=== PATIENT | female | born 1945 | race Caucasian/White ===

== ENCOUNTER → 2020-09-17 11:27 | Outpatient (BNVA) | payer MEDICARE, SELFPAY | PROVIDERS: PCP Nurse Practitioner Family; Visit Provider Nurse Practitioner | DX: Z13.89 Encounter for screening for other disorder (principal) | CPT/HCPCS: Q3014 ==

== ENCOUNTER 2020-09-19 19:45 | Emergency (ER) | payer MEDICARE, SELFPAY ==
[2020-09-19 19:55] VITALS: BP 128/66; PULSE 84; RESP 16; TEMP 36.9; O2SAT 98; BMI 19.5
--- NOTE | 2020-09-19 19:56 | ED.NAVMDI ---
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 Mode of arrival: EMS Limitations: no limitations History of Present Illness HPI Narrative: hx of gastritis feels like her gastritis MD elicited complaint: nausea, vomiting and abdominal pain Pertinent past history: other (gastritis) Onset (ago): hour(s) (2) Description of vomiting: watery Associated nausea: Yes Associated abdominal pain: Yes Location of pain: epigastric Radiation: does not radiate Pain consistency: constant Severity: moderate Quality: cramping and constant Exacerbating factors: none Relieving factors: none Context: other (gastritis) Associated symptoms: nausea/vomiting Related Data Previous Rx's Medication Instructions Recorded omeprazole 40 mg capsule,delayed 40 mg PO DAILY 30 Days #30 cap 09/17/20 release ondansetron 4 mg PO Q8H PRN #20 tab 09/19/20 Allergies Allergy/AdvReac Type Severity Reaction Status Date / Time No Known Allergies Allergy Verified 09/17/20 11:27 Review of Systems Review of Systems: Constitutional : No Weight loss, No Fever, No Chills ENT/Mouth : No sore throat, No Rhinorrhea Eyes: No Swelling, No Redness Cardiovascular : No Chest Pain, No SOB, NoEdema Respiratory : No Cough, No Sputum, No Wheezing Gastrointestinal : Positive Nausea, Positive Vomiting, no Diarrhea, positive abdominal Pain, No Hematochezia, No Melena Genitourinary : No Dysuria, No Urinary Frequency, No Hematuria, No Urgency Musculoskeletal : No joint pain, No Myalgias, No Joint Swelling Skin : No Skin Lesions, No rash Neuro : No Weakness, No Numbness, No Dizziness, No Headache Psych : No Anxiety/Panic, No Depression Heme/Lymph: No Bruising, No Lymphadenopathy Endocrine : No Polyuria, No Polydipsia All other systems reviewed and are negative. Gastrointestinal: Gastrointestinal: Reports nausea PMFSH Past Medical History Attestation statement: The following information was validated with the patient. Medical History (Updated 09/19/20 @ 23:04 by Luzma Parnell DO) Arthritis Diabetes Gastritis Osteopenia Sciatica Surgical History (Updated 09/19/20 @ 20:16 by Luzma Parnell DO) H/O: hysterectomy History of esophagogastroduodenoscopy (EGD) Hx of colonoscopy Family History Family History (Updated 08/05/20 @ 15:41 by ZEV Khoury) Father No problems noted. Mother Diabetes Daughter Ovarian cancer Social History Social History Household Members: Spouse Alcohol intake: current Alcohol intake frequency: does not drink Smoking Status: Never smoker Advance Directives: No Advance Directives Information Provided: No Physical Exam Vital Signs: Vital Signs: Last Vital Signs Temp 98.9 F 09/19/20 21:55 Pulse 69 09/19/20 21:55 Resp 16 09/19/20 21:55 BP 105/55 L 09/19/20 21:55 Pulse Ox 100 09/19/20 21:55 Body Mass Index 19.5 Appearance: Alert. Oriented X3. No acute distress. Eyes: Pupils equal, round and reactive to light. ENT: Pharynx normal. Neck: Normal inspection. Neck supple. CVS: Normal heart rate and rhythm. Pulses normal. Respiratory: No respiratory distress. Breath sounds normal. Abdomen: Soft and mild epigastric tenderness no rebound or guarding. Skin: Skin warm and dry. Normal skin color. Normal skin turgor. Extremities: No lower extremity edema. No calf ttp Neuro: Oriented X 3. No motor deficit. No sensory deficit. Course Course Course Narrative: CT scan for elevated lipase - hx of same in past but higher today pateint states she feels much better , no inflammation around pancreas able to tolerate PO stable for DC MDM - Nausea/Vomiting/Diarrhea MDM Narrative Medical decision making narrative: 75 yo female with hx of gastritis here with epigastric pain and n/v states this feels like her gastritis will obtain basic labs, EKG, treat with zofran/pepcid/morphine dispo per results and findings. Lab Data Result diagrams: 09/19/20 20:33 09/19/20 20:33 Labs: Lab Results 09/19/20 09/19/20 09/19/20 Range/Units 20:33 20:33 20:33 WBC 10.1 (4.8-10.8) X10*3/uL RBC 4.31 (4.20-5.50) X10*6/uL Hgb 13.1 (12.0-16.0) g/dl Hct 40.3 (37-47) % MCV 93.5 (80-98) fL MCH 30.4 (27.0-33.0) pg MCHC 32.5 (31.0-35.0) g/dl RDW 12.4 (11.0-16.0) % Plt Count 183 (160-400) X10*3/uL MPV 10.6 (9.4-12.3) fL Immature Gran % (Auto) 0.3 (0.0-0.4) % Neut % (Auto) 88.0 H (45-73) % Lymph % (Auto) 6.1 L (20-40) % [place] % (Auto) 4.5 (2-11) % Eos % (Auto) 0.9 (0-4) % Baso % (Auto) 0.2 (0-2) % Lymph # (Auto) 0.6 L (1.2-4.9) X10*3/uL [place] # (Auto) 0.5 (0.1-1.2) X10*3/uL Eos # (Auto) 0.1 (0.0-0.4) X10*3/uL Baso # (Auto) 0.0 (0.0-0.2) X10*3/uL Abs Immat Gran (auto) 0.03 (0.00-0.03) X10*3/uL Absolute Neuts (auto) 8.9 H (2.0-8.3) X10*3/uL Absolute Nucleated RBC 0.000 (0.0-0.012) X10*3/uL Nucleated RBC % (auto) 0.0 (0.0-0.2) /100WBC Hold Blue Top SEE NOTE Sodium 141 (135-145) mmol/L Potassium 4.6 (3.3-5.1) mmol/l Chloride 102 (96-108) mmol/L Carbon Dioxide 31 H (22-29) mmol/L Anion Gap 13 (12-20) BUN 23 H (9-16) mg/dL Creatinine 0.83 (0.5-1.4) mg/dL Estim Creat Clear Calc 41.2 Estimated GFR > 60 Random Glucose 112 (60-115) mg/dL Calcium 9.0 (8.4-10.2) mg/dL Magnesium 2.1 (1.6-2.6) mg/dL Total Bilirubin 0.2 (0.0-1.0) mg/dL Direct Bilirubin < 0.2 (0.0-0.5) mg/dL AST 25 (5-31) U/L ALT 20 (0-31) U/L Alkaline Phosphatase 63 (39-117) U/L Troponin I High Sens (<3.5-17.0) ng/L Total Protein 7.2 (6.5-8.0) g/dL Albumin 4.4 (3.5-5.0) g/dL Lipase 159 H (8-78) U/L 09/19/20 Range/Units 20:33 WBC (4.8-10.8) X10*3/uL RBC (4.20-5.50) X10*6/uL Hgb (12.0-16.0) g/dl Hct (37-47) % MCV (80-98) fL MCH (27.0-33.0) pg MCHC (31.0-35.0) g/dl RDW (11.0-16.0) % Plt Count (160-400) X10*3/uL MPV (9.4-12.3) fL Immature Gran % (Auto) (0.0-0.4) % Neut % (Auto) (45-73) % Lymph % (Auto) (20-40) % [place] % (Auto) (2-11) % Eos % (Auto) (0-4) % Baso % (Auto) (0-2) % Lymph # (Auto) (1.2-4.9) X10*3/uL [place] # (Auto) (0.1-1.2) X10*3/uL Eos # (Auto) (0.0-0.4) X10*3/uL Baso # (Auto) (0.0-0.2) X10*3/uL Abs Immat Gran (auto) (0.00-0.03) X10*3/uL Absolute Neuts (auto) (2.0-8.3) X10*3/uL Absolute Nucleated RBC (0.0-0.012) X10*3/uL Nucleated RBC % (auto) (0.0-0.2) /100WBC Hold Blue Top Sodium (135-145) mmol/L Potassium (3.3-5.1) mmol/l Chloride (96-108) mmol/L Carbon Dioxide (22-29) mmol/L Anion Gap (12-20) BUN (9-16) mg/dL Creatinine (0.5-1.4) mg/dL Estim Creat Clear Calc Estimated GFR Random Glucose (60-115) mg/dL Calcium (8.4-10.2) mg/dL Magnesium (1.6-2.6) mg/dL Total Bilirubin (0.0-1.0) mg/dL Direct Bilirubin (0.0-0.5) mg/dL AST (5-31) U/L ALT (0-31) U/L Alkaline Phosphatase (39-117) U/L Troponin I High Sens < 3.5 (<3.5-17.0) ng/L Total Protein (6.5-8.0) g/dL Albumin (3.5-5.0) g/dL Lipase (8-78) U/L ECG Data Attestation: I personally reviewed and interpreted this ECG as follows: ECG interpretation date: 09/19/20 ECG interpretation time: 20:29 Interpretation: Rate: 80 Rhythm: NSR [place]: left Normal P waves. Normal TEO. Normal QRS complex. poor R wave progression ST T wave : no BERNICE, inverted I and aVL qTC: normal prior studies: new t wave inversions in I and aVL The study has been interpreted contemporaneously by me. . Discharge Plan Discharge Clinical Impression: Gastritis, Vomiting Patient Disposition: Home, Self-Care Instructions: Gastritis (ED), Acute Nausea and Vomiting (ED) Additional Instructions: return to ED for any worsening symptoms or concerns Prescriptions: New ondansetron 4 mg tablet,disintegrating 4 mg PO Q8H PRN (Reason: nausea and vomiting) Qty: 20 RF: 0 No Action omeprazole 40 mg capsule,delayed release(DR/EC) 40 mg PO DAILY 30 Days Qty: 30 RF: 3 Referrals: Physician,Unknown [Primary Care Provider] - 3 days (PCP if not better) Print Language: Setswana
[2020-09-19 20:00] VITALS: BP 119/60; PULSE 83; RESP 16; TEMP 36.9; O2SAT 99
--- NOTE | 2020-09-19 20:00 | PC.NURSE ---
PT TO ROOM #14 WITH C/O ABD PAIN AND NAUSEA X 1 DAY. PT CHG INTO GOWN AND MD AT BEDSIDE. PT ARRIVES ALERT, RESPIRATIONS EASY, N/L. SKIN W/D. IV PLACED TO RAC, LABS DRAWN TO LAB. PT MEDICATED PER EMAR FOR PAIN AND NAUSEA. WILL CONTINUE TO MONTIOR PT.
--- NOTE | 2020-09-19 20:06 | ECG_ITS ---
Test Reason : VOMITING Blood Pressure : / mmHG Vent. Rate : 080 BPM Atrial Rate : 080 BPM P-R Int : 168 ms QRS Dur : 078 ms QT Int : 362 ms P-R-T Axes : 000 -28 134 degrees QTc Int : 417 ms Normal sinus rhythm Minimal criteria for Voltage criteria for left ventricular hypertrophy Abnormal ECG When compared with ECG of 13-APR-2020 21:04, No significant changes seen Referred By: Luzma Parnell Electronically Signed By:IOANA PICHARDO
[2020-09-19] MEDS: Morphine Sulfate 4 MG/ML CARTRIDGE 2 MG IVPUSH (20:37)
[2020-09-19] MEDS: ondansetron HCL 4 MG/2 ML VIAL IVPUSH (20:38)
[2020-09-19] MEDS: 0.9 % Sodium Chloride 500 ML IV (20:38)
[2020-09-19] MEDS: Famotidine/PF 20 MG/2 ML VIAL IVPUSH (20:38)
[2020-09-19 20:41] LABS: Basophils Percent Auto 0.2 % (0-2); Eosinophils Absolute Auto 0.1 X10*3/uL (0.0-0.4); Eosinophils Percent Auto 0.9 % (0-4); Hematocrit 40.3 % (37-47); Hemoglobin 13.1 g/dl (12.0-16.0); Imm Gran Abs Auto 0.03 X10*3/uL (0.00-0.03); Imm Gran Pct Auto 0.3 % (0.0-0.4); Lymphocytes Absolute Auto 0.6 X10*3/uL (1.2-4.9); Lymphocytes Percent Auto 6.1 % (20-40); Mean Corpuscular HGB Conc 32.5 g/dl (31.0-35.0); Mean Corpuscular Hemoglobin 30.4 pg (27.0-33.0); Mean Corpuscular Volume 93.5 fL (80-98); Mean Platelet Volume 10.6 fL (9.4-12.3); Monocytes Absolute Auto 0.5 X10*3/uL (0.1-1.2); Monocytes Percent Auto 4.5 % (2-11); Neutrophils Absolute Auto 8.9 X10*3/uL (2.0-8.3); Platelet Count 183 X10*3/uL (160-400); Red Blood Count 4.31 X10*6/uL (4.20-5.50); Red Cell Distribution Width 12.4 % (11.0-16.0); SCAN SMEAR FLAG 1; White Blood Count 10.1 X10*3/uL (4.8-10.8)
[2020-09-19 20:43] LABS: MANUAL DIFF FLAG NO
[2020-09-19 21:16] LABS: Alanine Aminotransferase 20 U/L (0-31); Albumin Level 4.4 g/dL (3.5-5.0); Alkaline Phosphatase 63 U/L (39-117); Anion Gap 13 (12-20); Aspartate Amino Transferase 25 U/L (5-31); Bilirubin Direct < 0.2 mg/dL (0.0-0.5); Bilirubin Total 0.2 mg/dL (0.0-1.0); Blood Urea Nitrogen 23 mg/dL (9-16); Carbon Dioxide 31 mmol/L (22-29); Chloride 102 mmol/L (96-108); Creatinine Clr Calc Pharmacy 41.2; Estimated Glomerular Filt Rate > 60; Glucose Random 112 mg/dL (60-115); Magnesium 2.1 mg/dL (1.6-2.6); Potassium 4.6 mmol/l (3.3-5.1); Sodium 141 mmol/L (135-145); Total Protein 7.2 g/dL (6.5-8.0)
[2020-09-19 21:18] LABS: Troponin-I High Sensitivity < 3.5 ng/L (<3.5-17.0)
[2020-09-19 21:28] LABS: Lipase 159 U/L (8-78)
--- NOTE | 2020-09-19 21:31 | CT_ITS ---
EXAMINATION: CT ABDOMEN AND PELVIS WITH CONTRAST CLINICAL INFORMATION: Epigastric pain. Elevated lipase. COMPARISON: Most recent CT abdomen/pelvis dated 05/22/2020. TECHNIQUE: Multidetector volumetric images were obtained from the superior aspect of the liver through the pubic symphysis following administration 85 mL of Omnipaque 350 intravenous contrast. Sagittal and coronal reformatted images were obtained on the technologist's workstation. Oral contrast: No. This CT examination was performed using dose optimization techniques as appropriate, variously including the following: *Automated exposure control *Adjustment of mA and/or kV according to patient size (this includes techniques or standardized protocols for targeted exams where dose is matched to indication/reason for exam; i.e. extremities or head) *Use of iterative reconstruction technique DLP: 283 mGy-cm. FINDINGS: LUNG BASES: The visualized lung bases are unremarkable. LIVER, GALLBLADDER, AND BILIARY TREE: The liver is normal in size, shape, and attenuation. No focal hepatic lesion or biliary ductal dilatation is present. The gallbladder is unremarkable with no evidence of radiopaque gallstones, gallbladder wall thickening, or obvious pericholecystic inflammatory changes. PANCREAS: Unremarkable. SPLEEN: Unremarkable. ADRENAL GLANDS: Unremarkable. KIDNEYS AND URETERS: The kidneys are normal in size, shape, and attenuation. No hydronephrosis, hydroureter, or calculi seen. No perinephric stranding. BLADDER: Unremarkable. GASTROINTESTINAL TRACT: Small, sliding hiatal hernia. Mild stool throughout the colon, which could represent a degree of constipation. No bowel wall thickening or associated inflammatory change. No small or large bowel obstruction. Unremarkable appendix. PERITONEAL CAVITY: No intra-abdominal free air or free fluid. No intra-abdominal mass or organized fluid collection/abscess. ABDOMINAL WALL: No significant hernia is appreciated. LYMPH NODES: Normal. VASCULAR: No abdominal aortic dilatation or dissection. Atherosclerotic calcifications. Unremarkable IVC. PELVIC VISCERA: Uterus is atrophic or surgically absent. Phleboliths within the pelvis. OSSEOUS STRUCTURES: No new lytic or blastic osseous lesion. CT/CT abdomen pelvis w con IMPRESSION: 1. Small, sliding hiatal hernia. Mild stool throughout the colon, which could indicate a degree of constipation. No small or large bowel obstruction. No bowel wall thickening or associated inflammatory change. Unremarkable appendix. 2. No hydronephrosis or nephrolithiasis. 3. No intra-abdominal mass, lymphadenopathy, or ascites.
[2020-09-19 21:55] VITALS: BP 105/55; PULSE 69; RESP 16; TEMP 37.2; O2SAT 100
[2020-09-19] MEDS: iohexoL 350 MG/ML 100 ML INFUS..BTL IV (22:27)
== END 2020-09-19 23:24 | disposition home or self-care (01) ==
PROVIDERS: Emergency Provider Emergency Medicine
DX: K29.70 Gastritis, unspecified, without bleeding (principal); R11.10 Vomiting, unspecified; E11.9 Type 2 diabetes mellitus without complications
CPT/HCPCS: 36415; 74177; 80048; 80076; 83690; 83735; 84484; 85025; 93005; 96361; 96374; 96375; 99283; 99284; J2270; J2405; Q9967

== ENCOUNTER → 2020-10-15 10:17 | Outpatient (BNVA) | payer MEDICARE, SELFPAY | PROVIDERS: Visit Provider Nurse Practitioner | DX: Z76.89 Persons encountering health services in other specified circumstances (principal) | CPT/HCPCS: Q3014 ==

== ENCOUNTER → 2020-11-06 13:31 | Outpatient (BNVA) | payer MEDICARE, SELFPAY | PROVIDERS: PCP Nurse Practitioner Family; Visit Provider Nurse Practitioner | DX: Z76.89 Persons encountering health services in other specified circumstances (principal) | CPT/HCPCS: Q3014 ==

== ENCOUNTER 2021-01-09 17:25 | Emergency (ER) | payer MEDICARE, SELFPAY ==
[2021-01-09 18:47] VITALS: BP 136/63; PULSE 66; RESP 18; TEMP 36.8; O2SAT 99; BMI 18.7
[2021-01-09 19:18] VITALS: BP 130/57; PULSE 62; RESP 16; TEMP 36.4; O2SAT 100
[2021-01-09 20:31] VITALS: BP 130/48; PULSE 60; RESP 15; TEMP 36.3; O2SAT 100
--- NOTE | 2021-01-09 21:34 | ED.BACK ---
HPI - Back Pain/Injury General Chief Complaint: Back Pain/Injury Stated Complaint: back pain Time Seen by Provider: 01/09/21 20:55 Source: patient, RN notes reviewed and old records reviewed Mode of arrival: ambulatory Limitations: no limitations History of Present Illness HPI Narrative: 75 years old female here today for complaining of lower back pain. Patient reports that she has a history of sciatica. Usually takes tramadol for it. Few days ago she was cleaning her house and her pain started after that. Denies any other injury. Denies any fever or chills. Denies any tingling, denies bladder or bowel incontinence. Pain radiates down to her leg. Denies any other symptoms. Related Data Home Medications Medication Instructions Recorded Confirmed calcium carbonate 200 mg calcium 200 mg PO BID PRN 11/06/20 (500 mg) chewable tablet cholecalciferol (vitamin D3) 50 50 mcg PO DAILY 11/06/20 mcg (2,000 unit) capsule levothyroxine 50 mcg tablet 50 mcg PO DAILY 11/06/20 lisinopril 5 mg tablet 5 mg PO DAILY 11/06/20 metformin 850 mg tablet 850 mg PO BEDTIME 11/06/20 omeprazole 40 mg capsule,delayed 40 mg PO DAILY 11/06/20 release rosuvastatin 20 mg tablet 20 mg PO BEDTIME 11/06/20 tramadol 50 mg tablet 50 mg PO Q6H PRN 11/06/20 zolpidem 5 mg tablet 5 mg PO BEDTIME PRN 11/06/20 Previous Rx's Medication Instructions Recorded ondansetron 4 mg PO Q8H PRN #20 tab 09/19/20 simethicone 180 mg capsule 180 mg PO QID 30 Days #120 cap 10/15/20 pantoprazole 40 mg tablet,delayed 40 mg PO BID #180 tab 01/07/21 release cyclobenzaprine 5 mg PO BEDTIME PRN #7 tab 01/09/21 Allergies Allergy/AdvReac Type Severity Reaction Status Date / Time No Known Allergies Allergy Verified 01/09/21 19:34 Review of Systems Constitutional: Constitutional: Denies weight gain and Denies weight loss Cardiovascular: Cardiovascular: Reports no additional cardiovascular complaints Respiratory: Respiratory: Reports no additional respiratory complaints Musculoskeletal: Musculoskeletal: Reports back pain (Right lower back) Neurologic: Reports system reviewed and no additional complaints, except as documented Psychiatric: Psychiatric: Reports no additional psychiatric complaints PMFSH Past Medical History Medical History (Updated 01/10/21 @ 00:01 by Priya Maher) Arthritis Diabetes Gastritis Osteopenia Sciatica Surgical History H/O: hysterectomy History of esophagogastroduodenoscopy (EGD) Hx of colonoscopy Family History Family History Father No problems noted. Mother Diabetes Daughter Ovarian cancer Social History Social History (Updated 11/06/20 @ 13:36 by ZEV Khoury) Household Members: Spouse Alcohol intake: current Alcohol intake frequency: does not drink Smoking Status: Never smoker Advance Directives: No Advance Directives Information Provided: Yes Current occupational status: retired Physical Exam Vital Signs: Vital Signs: Last Vital Signs Temp 97.6 F 01/09/21 22:34 Pulse 60 01/09/21 22:34 Resp 16 01/09/21 22:34 BP 146/62 H 01/09/21 22:34 Pulse Ox 99 01/09/21 22:34 Body Mass Index 18.7 Const: General: healthy appearing, no acute distress and well developed Nutritional Appearance: well nourished Orientation/consciousness: patient oriented x3 Neck: Neck: Yes normal visual inspection, Yes full ROM and Yes trachea midline Resp: Auscultation: clear to auscultation bilaterally Cardio: Rate: regular rate Rhythm: regular rhythm GI: Inspection: Yes normal to inspection and No distended Palpation (GI): No hepatosplenomegaly present Auscultation: normal bowel sounds Skin: General skin exam: elasticity normal, turgor normal and dry skin Neuro: General: patient oriented x3 Course Course Course Narrative: Right lower back pain. Patient reports to have history of sciatica. Cleaned her house few days ago and pain started then. No tingling, radiation down to her right lower leg. Will medicate her with cyclobenzaprine. Patient usually takes tramadol for pain. Will order urine to make sure she does not have a UTI. Reevaluation(s) Reevaluation #1: Urine negative for leukocytosis, blood, ketones. Patient reports to be feeling better after cyclobenzaprine. Will send her home on a script. Patient is agreeable to go home and follow up with her PCP. MDM - Back Pain/Injury Lab Data Labs: Lab Results 01/09/21 Range/Units 21:51 Urine Color YELLOW Urine Appearance CLEAR Urine pH 6.0 (5.0-8.0) Ur Specific [place] >= 1.030 H (1.005-1.025) Urine Protein NEG (NEG-TRACE) MG/DL Urine Glucose (UA) NEG (NEG) MG/DL Urine Ketones NEG (NEG) MG/DL Urine Blood NEG (NEG) Urine Nitrite NEG (NEG) Ur Leukocyte Esterase NEG (NEG) Discharge Plan Discharge Clinical Impression: Strain of lumbar region, Sciatica Patient Disposition: Home, Self-Care Instructions: Sciatica (ED) Additional Instructions: You were seen here today for low back pain. Your urine test was negative for infection, blood or ketones. Please take cyclobenzaprine at night as needed for muscle spasms. Please follow-up with you primary care doctor in 2-3 days. Avoid twisting and bending. You can put warm compresses/heat to the affected area. You may return to emergency department if you experience any concerning symptoms Prescriptions: New cyclobenzaprine 5 mg tablet 5 mg PO BEDTIME PRN (Reason: muscle spasm) Qty: 7 RF: 0 No Action pantoprazole 40 mg tablet,delayed release (DR/EC) 40 mg PO BID Qty: 180 RF: 2 ondansetron 4 mg tablet,disintegrating 4 mg PO Q8H PRN (Reason: nausea and vomiting) Qty: 20 RF: 0 simethicone 180 mg capsule 180 mg PO QID 30 Days Qty: 120 RF: 3 Interventions: ED Discharge Assessment Last Done: 01/09/21 23:03 Discharge Date/Time: 01/09/21 23:05
[2021-01-09 22:01] LABS: Glucose Urine UA NEG (NEG); Leukocyte Esterase Urine NEG (NEG); Nitrite Urine NEG (NEG); Specific Gravity - Urine >= 1.030 (1.005-1.025); Urine Blood NEG (NEG); Urine Ketones NEG (NEG); Urine Protein NEG (NEG-TRACE)
[2021-01-09 22:04] LABS: Appearance Urine CLEAR; Color Urine YELLOW
[2021-01-09] MEDS: Cyclobenzaprine HCl 5 MG TABLET PO (22:05)
[2021-01-09 22:34] VITALS: BP 146/62; PULSE 60; RESP 16; TEMP 36.4; O2SAT 99
== END 2021-01-09 23:05 | disposition home or self-care (01) ==
PROVIDERS: Nurse Practitioner Family; Emergency Provider Internal Medicine; PCP Nurse Practitioner Family
DX: S39.012A Strain of muscle, fascia and tendon of lower back, initial encounter (principal); X50.9XXA Other and unspecified overexertion or strenuous movements or postures, initial encounter; M54.41 Lumbago with sciatica, right side; Y93.E9 Activity, other interior property and clothing maintenance; Y92.039 Unspecified place in apartment as the place of occurrence of the external cause; Y99.9 Unspecified external cause status
CPT/HCPCS: 81003; 99283; 99284

== ENCOUNTER 2021-04-17 13:51 | Outpatient (REF) | payer MEDICARE, SELFPAY ==
--- NOTE | ~2021-04-17 | MM_ITS ---
EXAMINATION: MM SCREENING DIGITAL BREAST TOMOSYNTHESIS, BILATERAL CLINICAL INFORMATION: Screening. Asymptomatic. The lifetime risk of breast cancer based on the Tyrer-Cuzick Model is 2%. COMPARISON: Mammography: 06/13/2019, 06/01/2018, 04/25/2017 TECHNIQUE: Digital breast tomosynthesis is performed in both the craniocaudal and mediolateral oblique views along with computer-aided detection (CAD). Synthesized 2D images are generated from the tomosynthesis. Additional exaggerated left CC view is provided. FINDINGS: The breasts are heterogeneously dense, which may obscure small masses (ACR BI-RADS breast composition Category c). Parenchymal pattern is similar to prior studies. There is no developing density or interval mass or architectural abnormality. Scattered minor asymmetries and shifting fibroglandular tissue is without significant change. There are scattered bilateral vascular and benign round calcifications. The axilla and skin contours are unremarkable. No significant changes. MM/MM tomosynthesis screening BI IMPRESSION: No mammographic evidence of malignancy. ASSESSMENT: BI-RADS 2: Benign RECOMMENDATION: Routine annual mammography screening. This patient's information was entered into a reminder system with a target due date for their next mammogram.
== END 2021-04-17 13:52 | disposition home or self-care (01) ==
LOC: HO.MAMMO 13:51
PROVIDERS: Visit Provider Family Medicine
DX: Z12.31 Encounter for screening mammogram for malignant neoplasm of breast (principal)
CPT/HCPCS: 77063; 77067

== ENCOUNTER → 2021-04-20 09:36 | Outpatient (BNVA) | payer MEDICARE, SELFPAY | PROVIDERS: PCP Nurse Practitioner Family; Visit Provider Nurse Practitioner | CPT/HCPCS: Q3014 ==

== ENCOUNTER → 2021-11-24 14:15 | Outpatient (BNVA) | payer MEDICARE, SELFPAY | PROVIDERS: PCP Internal Medicine; Referring Provider Internal Medicine; Visit Provider Nurse Practitioner | DX: K22.10 Ulcer of esophagus without bleeding (principal); R14.0 Abdominal distension (gaseous); R11.0 Nausea; K21.9 Gastro-esophageal reflux disease without esophagitis; Z79.899 Other long term (current) drug therapy | CPT/HCPCS: 99212 ==

== ENCOUNTER 2022-04-20 11:51 | Outpatient (REF) | payer OTHER, SELFPAY ==
--- NOTE | ~2022-04-20 | MM_ITS ---
EXAMINATION: MM SCREENING DIGITAL BREAST TOMOSYNTHESIS, BILATERAL CLINICAL INFORMATION: Screening. Asymptomatic. The lifetime risk of breast cancer based on the Tyrer-Cuzick Model is 2%. COMPARISON: Mammography: 04/17/2021, 06/13/2019, 06/01/2018 TECHNIQUE: Digital breast tomosynthesis is performed in both the craniocaudal and mediolateral oblique views along with computer-aided detection (CAD). Synthesized 2D images are generated from the tomosynthesis. Additional right MLO view is provided. FINDINGS: The breasts are heterogeneously dense, which may obscure small masses (ACR BI-RADS breast composition Category c). There are no significant masses, abnormal calcifications, or other abnormalities. No developing density or architectural abnormality. The axilla and skin contours are unremarkable MM/MM tomosynthesis screening BI IMPRESSION: No mammographic evidence of malignancy. ASSESSMENT: BI-RADS 1: Negative RECOMMENDATION: Routine annual mammography screening. This patient's information was entered into a reminder system with a target due date for their next mammogram.
== END 2022-04-20 11:52 | disposition home or self-care (01) ==
LOC: HO.MAMMO 11:51
PROVIDERS: PCP Internal Medicine; Visit Provider Internal Medicine
DX: Z12.31 Encounter for screening mammogram for malignant neoplasm of breast (principal)
CPT/HCPCS: 77063; 77067

== ENCOUNTER 2022-04-30 18:06 | Emergency (ER) | payer OTHER, SELFPAY ==
[2022-04-30 19:58] VITALS: BP 138/81; PULSE 70; RESP 16; TEMP 36.1; O2SAT 96; BMI 20.2
[2022-04-30 20:10] LABS: MANUAL DIFF FLAG NO
[2022-04-30 20:11] LABS: Basophils Percent Auto 0.3 % (0-2); Eosinophils Absolute Auto 0.2 X10*3/uL (0.0-0.4); Eosinophils Percent Auto 2.5 % (0-4); Hemoglobin 12.2 g/dl (12.0-16.0); Imm Gran Abs Auto 0.01 X10*3/uL (0.00-0.03); Imm Gran Pct Auto 0.2 % (0.0-0.4); Lymphocytes Absolute Auto 1.8 X10*3/uL (1.2-4.9); Lymphocytes Percent Auto 30.3 % (20-40); Mean Corpuscular HGB Conc 33.9 g/dl (31.0-35.0); Mean Corpuscular Hemoglobin 30.5 pg (27.0-33.0); Mean Platelet Volume 10.3 fL (9.4-12.3); Monocytes Absolute Auto 0.5 X10*3/uL (0.1-1.2); Monocytes Percent Auto 7.4 % (2-11); Neutrophils Absolute Auto 3.6 x10*3/uL (2.0-8.3); Neutrophils Percent Auto 59.3 % (45-73); Platelet Count 169 X10*3/uL (160-400); Red Cell Distribution Width 12.8 % (11.0-16.0); White Blood Count 6.1 X10*3/uL (4.8-10.8)
[2022-04-30 20:36] LABS: Alanine Aminotransferase 14 U/L (0-31); Albumin Level 4.5 g/dL (3.5-5.0); Alkaline Phosphatase 53 U/L (39-117); Anion Gap 12 (12-20); Aspartate Amino Transferase 24 U/L (5-31); Bilirubin Total 0.4 mg/dL (0.0-1.0); Blood Urea Nitrogen 25 mg/dL (9-16); Calcium 9.3 mg/dL (8.4-10.2); Carbon Dioxide 30 mmol/L (22-29); Chloride 102 mmol/L (96-108); Creatinine Clr Calc Pharmacy 38.8; Estimated Glomerular Filt Rate > 60; Glucose Random 111 mg/dL (60-115); Lipase 31 U/L (8-78); Potassium 4.2 mmol/L (3.3-5.1); Sodium 140 mmol/L (135-145); Total Protein 7.2 g/dL (6.5-8.0)
[2022-04-30 20:41] LABS: Troponin-I High Sensitivity < 3.5 ng/L (<3.5-17.0)
== END 2022-04-30 23:45 | disposition left against medical advice (07) ==
PROVIDERS: Emergency Provider Emergency Medicine; PCP Internal Medicine
DX: R10.10 Upper abdominal pain, unspecified (principal); R11.0 Nausea; R19.7 Diarrhea, unspecified
CPT/HCPCS: 36415; 80053; 83690; 84484; 85025; 99281; 99283

== ENCOUNTER → 2022-10-27 08:43 | Outpatient (BNVA) | payer OTHER, SELFPAY | PROVIDERS: PCP Internal Medicine; Referring Provider Internal Medicine; Visit Provider Nurse Practitioner | DX: K22.10 Ulcer of esophagus without bleeding (principal); D12.6 Benign neoplasm of colon, unspecified; R14.0 Abdominal distension (gaseous); Z53.20 Procedure and treatment not carried out because of patient's decision for unspecified reasons | CPT/HCPCS: 99212 ==

== ENCOUNTER 2023-03-26 11:11 | Emergency (ER) | payer OTHER, SELFPAY ==
[2023-03-26 11:34] VITALS: BP 106/56; PULSE 62; RESP 17; TEMP 35.7; O2SAT 99; BMI 19.7
--- NOTE | 2023-03-26 11:35 | ED.LOWEXIN ---
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 Now pain with WB. NO numbness, tingling or weakness. MD complaint: foot injury Related Data Home Medications Medication Instructions Recorded Confirmed cholecalciferol (vitamin D3) 50 50 mcg PO DAILY 11/06/20 mcg (2,000 unit) capsule levothyroxine 50 mcg tablet 50 mcg PO DAILY 11/06/20 lisinopril 5 mg tablet 5 mg PO DAILY 11/06/20 metformin 850 mg tablet 850 mg PO BEDTIME 11/06/20 rosuvastatin 20 mg tablet 20 mg PO BEDTIME 11/06/20 tramadol 50 mg tablet 50 mg PO Q6H PRN 11/06/20 zolpidem 5 mg tablet 5 mg PO BEDTIME PRN 11/06/20 aspirin 81 mg tablet,delayed 81 mg PO DAILY 10/27/22 release blood sugar diagnostic (FreeStyle #10 ea 10/27/22 Lite Strips) lancets 28 gauge (FreeStyle #100 ea 10/27/22 Lancets) Previous Rx's Medication Instructions Recorded ondansetron 4 mg disintegrating 4 mg PO Q8H PRN nausea and 09/19/20 tablet vomiting #20 tabs cyclobenzaprine 5 mg tablet 5 mg PO BEDTIME PRN muscle spasm 01/09/21 #7 tabs pantoprazole 40 mg tablet,delayed 40 mg PO BID #180 tabs 10/27/22 release simethicone 180 mg capsule 180 mg PO QID 30 days #120 caps 10/27/22 Allergies Allergy/AdvReac Type Severity Reaction Status Date / Time No Known Allergies Allergy Verified 10/27/22 09:00 Review of Systems Review of Systems: Yes all other systems are reviewed and are negative Constitutional: Constitutional: Reports no additional constitutional complaints, Denies body ache(s), Denies chills, Denies fever(s), Denies headache(s) and Denies weakness Eyes: Eyes: Reports no additional eye complaints and Denies change in vision ENT: Reports system reviewed and no additional complaints, except as documented, Denies dizziness, Denies headache(s), Denies nasal congestion, Denies nasal discharge and Denies neck pain Cardiovascular: Cardiovascular: Reports no additional cardiovascular complaints, Denies chest pain, Denies leg edema and Denies dyspnea Respiratory: Respiratory: Reports no additional respiratory complaints, Denies cough and Denies dyspnea Gastrointestinal: Gastrointestinal: Reports no additional gastrointestinal complaints, Denies abdominal pain, Denies diarrhea, Denies nausea and Denies vomiting Genitourinary: Genitourinary: Reports no additional female genitourinary complaints and Denies urinary incontinence Musculoskeletal: Musculoskeletal: Reports no additional musculoskeletal complaints, Denies back pain, Reports arthralgias, Denies joint swelling, Denies limited range of motion, Denies neck pain, Denies numbness and Denies tingling Integumentary/Breasts: Skin/Breast: Reports system reviewed and no additional complaints, except as docu and Denies rash Neurologic: Reports system reviewed and no additional complaints, except as documented, Denies Abnormal speech present, Denies dizziness, Denies headache(s), Denies numbness, Denies tingling and Denies weakness PMFSH Past Medical History Attestation statement: The following information was validated with the patient. Source: old records reviewed and nursing notes reviewed Medical History Arthritis Diabetes Gastritis Osteopenia Sciatica Surgical History H/O: hysterectomy History of esophagogastroduodenoscopy (EGD) Hx of colonoscopy Family History Family History Father No problems noted. Mother Diabetes Daughter Ovarian cancer Social History Social History Household Members: Spouse Alcohol intake: never Smoked in Last 30 Days: No Use of substances other than those prescribed or required for medical reasons: No Advance Directives: No Advance Directives Information Provided: No Current occupational status: retired Physical Exam Vital Signs: Vital Signs: Last Vital Signs Temp 96.3 F L 03/26/23 11:34 Pulse 69 03/26/23 12:21 Resp 14 07/08/23 12:21 BP 112/64 03/26/23 12:21 Pulse Ox 98 03/26/23 12:21 O2 Del Method Room Air 03/26/23 12:21 BMI result Body Mass Index 19.7 Const: General: cooperative, healthy appearing, comfortable and no acute distress Orientation/consciousness: patient oriented x3 Limitations: no limitations HEENT: Head: Yes normal to inspection Ears: hearing grossly normal bilaterally General nose exam: Normal external nose present Face and sinus: Yes normal facial exam Mouth: Normal oral and palatal mucosa present Throat: Yes posterior oropharynx normal Eyes: General: appearance normal, both eyes and all related structures Pupils: Equal, round and reactive pupils present Neck: Neck: Yes normal visual inspection Chest: Chest palpation & inspection: normal inspection of the chest Resp: Effort & Inspection: normal respiratory effort Auscultation: clear to auscultation bilaterally Cardio: Rate: regular rate Rhythm: regular rhythm Peripheral pulses: Peripheral pulses 2+ throughout GI: Inspection: Yes normal to inspection Palpation (GI): Soft to palpation and nontender Auscultation: normal bowel sounds Back/Spine/Pelvis: Thoracic/Lumbar Spine: thoracic and lumbar spine normal to inspection Skin: General skin exam: no rashes or lesions noted Neuro: General: patient oriented x3, no focal motor deficits and normal sensation to monofilament Cranial nerves: Yes Equal, round and reactive pupils present Cognition (Neuro): normal cognition Speech: No Abnormal speech present Gait exam (Neuro): Normal gait present Motor exam (neuro): 5/5 motor strength present throughout Extrem: Other: To the base of the right 5th toe there is swelling, tenderness, ecchymosis and limited ROM d/t pain Normal sensation Normal DP/PT pulses General: Yes normal to inspection Course Course Course Narrative: RME: 77yo F w/PMHx erosive esophagitis c/o right pinky toe pain s/p hitting on yesterday. +right 5th phalanx w/mild swelling & ecchymosis XRs ordered Full HPI, ROS and PE to be performed by primary ED provider. Medical Decision Making Medical Decision Making [facility] Narrative: 77 yo female here with right 5th toe swelling, pain, ecchymosis after injury 2 days ago Will check x-rays Differential Diagnosis Differential Diagnoses: The differential diagnosis associated with the presentation includes contusion, fracture, low concern for vascular injury Independent Interpretation I performed an independent interpretation of an: Plain X-Ray Interpretation: I independently reviewed the x-ray and agree with rad report Radiology Impression Discussion of test interpretation with radiology: I have reviewed the radiologist's reading. Radiologist Impression: There is an oblique fracture proximal to mid segment without displacement proximal phalanx fifth digit. There is minimal soft tissue swelling. No additional fracture seen. There is moderate hallux valgus deformity first MTP joint. The ankle mortise and subtalar joints are normal.? XR/XR foot RT min 3V IMPRESSION: Oblique 1.? Nondisplaced oblique fracture proximal to mid segment proximal phalanx fifth digit with mild soft tissue swelling. 2.? Moderate hallux valgus deformity first MTP joint. ? Prescription Management I considered prescription management with: Pain Medication pain well controlled with apap, no need for further control Procedures Orthopedic Splinting/Casting Injury #1: Side: right Lower Extremity Injury Location: foot Lower Extremity Immobilizer: post-op shoe Discharge Plan Discharge Clinical Impression: Fracture of toe Patient Disposition: Home, Self-Care Instructions: Toe Fracture (ED) Additional Instructions: Ice, elevation of the foot. Use the shoe we provided and consider purchasing a cane for ambulation. Take tylenol for pain as needed. Hielo, elevaci?n del pie. Use el zapato que le proporcionamos y considere comprar un noy?n para caminar. [place] Tylenol para el dolor seg?n sea necesario. Prescriptions: No Action ondansetron 4 mg tablet,disintegrating 4 mg PO Q8H PRN (Reason: nausea and vomiting) Qty: 20 0RF cyclobenzaprine 5 mg tablet 5 mg PO BEDTIME PRN (Reason: muscle spasm) Qty: 7 0RF tramadol 50 mg tablet 50 mg PO Q6H PRN zolpidem 5 mg tablet 5 mg PO BEDTIME PRN rosuvastatin 20 mg tablet 20 mg PO BEDTIME levothyroxine 50 mcg tablet 50 mcg PO DAILY metformin 850 mg tablet 850 mg PO BEDTIME lisinopril 5 mg tablet 5 mg PO DAILY cholecalciferol (vitamin D3) 50 mcg (2,000 unit) capsule 50 mcg PO DAILY aspirin 81 mg tablet,delayed release (DR/EC) 81 mg PO DAILY (DME) FreeStyle Lite Strips Strip See Rx Instructions .ROUTE BID Qty: 10 Rx Instructions: As directed (DME) lancets [FreeStyle Lancets] 28 gauge misc See Rx Instructions .ROUTE BID Qty: 100 Rx Instructions: As directed pantoprazole 40 mg tablet,delayed release (DR/EC) 40 mg PO BID Qty: 180 1RF simethicone 180 mg capsule 180 mg PO QID 30 Days Qty: 120 6RF Rx Instructions: after meals Referrals: [facility] Orthopedic Surgeons [Provider Group] - 1 week Interventions: ED Discharge Assessment Last Done: 03/26/23 12:23 Discharge Date/Time: 03/26/23 12:25 Print Language: British
[2023-03-26 12:21] VITALS: BP 112/64; PULSE 69; RESP 14; O2SAT 98
== END 2023-03-26 12:25 | disposition home or self-care (01) ==
PROVIDERS: Emergency Provider Emergency Medicine; PCP Internal Medicine
DX: S92.511A Displaced fracture of proximal phalanx of right lesser toe(s), initial encounter for closed fracture (principal); W22.8XXA Striking against or struck by other objects, initial encounter; Y93.9 Activity, unspecified; Y92.030 Kitchen in apartment as the place of occurrence of the external cause; Y99.9 Unspecified external cause status
CPT/HCPCS: 73630; 99284

== ENCOUNTER 2023-04-25 14:36 | Outpatient (REF) | payer OTHER, SELFPAY ==
--- NOTE | ~2023-04-25 | MM_ITS ---
EXAMINATION: MM SCREENING DIGITAL BREAST TOMOSYNTHESIS, BILATERAL CLINICAL INFORMATION: Screening. Asymptomatic. The lifetime risk of breast cancer based on the Tyrer-Cuzick Model is 1.4%. COMPARISON: Mammography: 04/20/2022, 04/17/2021, and dating back to 2012. TECHNIQUE: Digital breast tomosynthesis is performed in both the craniocaudal and mediolateral oblique views along with computer-aided detection (CAD). Synthesized 2D images are generated from the tomosynthesis. FINDINGS: The breasts are heterogeneously dense, which may obscure small masses (ACR BI-RADS breast composition Category c). There are no suspicious masses, suspicious grouped calcifications, or areas of architectural distortion. The somewhat nodular parenchymal pattern is stable from prior exams. There are bilateral vascular calcifications. Prominent but unchanged lymph nodes in the axillary tail regions and axilla are again noted. MM/MM tomosynthesis screening BI IMPRESSION: No mammographic evidence of malignancy. Stable benign findings. ASSESSMENT: BI-RADS BI-RADS 2 - Benign Findings RECOMMENDATION: Routine annual mammography screening. 1 year F/U This examination should not preclude the clinical evaluation of a suspicious palpable abnormality. This patient's information was entered into a reminder system with a target due date for their next mammogram.
== END 2023-04-25 14:37 | disposition home or self-care (01) ==
LOC: HO.MAMMO 14:36
PROVIDERS: PCP Internal Medicine; Visit Provider Internal Medicine
DX: Z12.31 Encounter for screening mammogram for malignant neoplasm of breast (principal)
CPT/HCPCS: 77063; 77067

== ENCOUNTER → 2023-04-25 14:45 | Outpatient (BNV) | payer OTHER, SELFPAY | PROVIDERS: PCP Internal Medicine; Visit Provider Radiology Diagnostic Radiology | DX: Z12.31 Encounter for screening mammogram for malignant neoplasm of breast (principal) | CPT/HCPCS: 77063; 77067 ==

== ENCOUNTER 2023-04-27 12:40 | Outpatient (AMB) | payer OTHER, SELFPAY ==
--- NOTE | 2023-04-27 12:40 | MHC.OFFVIS ---
Intake Vital Signs 04/27/23 12:44 Height 5 ft Weight 101 lb 13.657 oz BMI 19.9 BP 127/61 Blood Pressure Location Lt brachial Position Sitting Pulse 60 Intake Visit Reasons: 6 month follow up Intake Note: Patient presents to in office visit today in 6 months follow up. CC: Patient reports doing well and denies having any GI symptoms today. Allergies No Known Allergies Allergy (Verified 10/27/22 09:00) HPI 6 month follow up HPI Details Assessment & Plan (1) Erosive esophagitis: ?Code(s): K22.10 - Ulcer of esophagus without bleeding ?Plan: [place] #[id number] She continues to do well with her medications; protonix and simethicone. She is satisfied with her GI regimen. She declines scope r/t her bradycardia after her last in 2018;? and has done Cologurad recently with her PCP. ROV 6 mos. (2) Tubular adenoma of colon: ?Comment: 2018 colonoscopy was clear repeat in 5 years ?Code(s): D12.6 - Benign neoplasm of colon, unspecified (3) Abdominal bloating: ?Code(s): R14.0 - Abdominal distension (gaseous) (4) Colon cancer screening declined: ?Code(s): Z53.20 - Procedure and treatment not carried out because of patient's decision for unspecified reasons ? ? ? Medications: Refilled pantoprazole 40 mg? PO BID 180 tabs 1RF K22.10 - Ulcer of esophagus without bleeding ? simethicone ?? aft er meals 180 mg? PO QID 30 days 120 caps 6RF w R14.0 - Abdominal distension (gaseou s) TODAY'S VISIT Croatian #[id number] She continues to do well. She continues to do well with her medications; protonix and simethicone. She is satisfied with her GI regimen. She declines scope r/t her bradycardia after her last in 2018;? and has done Cologuard recently with her PCP. ROV 6 mos. [facility] Medical History Arthritis Diabetes Gastritis Osteopenia Sciatica Surgical History H/O: hysterectomy History of esophagogastroduodenoscopy (EGD) Hx of colonoscopy Family History Father No problems noted. Mother Diabetes Daughter Ovarian cancer Social History Household Members: Spouse Alcohol intake: never Current occupational status: retired Review of Systems Const Denies fatigue, Denies fever(s), Denies night sweats, Denies poor appetite and Denies weight loss ENT Reports Normal hearing present, Denies dental pain, Denies dysphagia, Denies hearing loss, Denies mouth pain, Denies odynophagia, Denies throat swelling, Denies tongue swelling and Reports other (Dentition adequate) Card Reports no additional complaints Resp Reports no additional complaints GI Denies abdominal pain, Denies melena, Reports bloating, Denies hematochezia, Denies constipation, Denies GI cramping, Denies dysphagia, Denies excessive flatus, Denies early satiety, Reports heartburn, Denies diarrhea, Denies nausea, Denies odynophagia, Denies vomiting and Denies hematemesis Skin/Breast Denies pruritus, Denies lesions, Denies rash and Denies jaundice Neuro Reports Normal hearing present and Denies Abnormal speech present Endo Denies fatigue Aller/Immun Denies throat swelling and Denies tongue swelling Physical Exam Vital Signs: Last Vital Signs Pulse 60 04/27/23 12:44 BP 127/61 04/27/23 12:44 BMI result Body Mass Index 19.9 Const General: cooperative, no acute distress, well developed and well groomed Nutritional Appearance: average body habitus and well nourished Orientation/consciousness: oriented to person, oriented to place and oriented to time Limitations: language barrier HEENT Head: Yes normocephalic and Yes atraumatic Eyes General: appearance normal, both eyes and all related structures Pupils: Equal, round and reactive pupils present Neck Neck: Yes normal visual inspection and Yes no lymphadenopathy Thyroid: Thyroid normal Resp Effort & Inspection: normal respiratory effort and able to speak in complete sentences Auscultation: clear to auscultation bilaterally Cardio Rate: regular rate Rhythm: regular rhythm Heart sounds: Normal, physiologic split S2 sound present Peripheral pulses: radial pulses present and posterior tibial pulses present GI Inspection: No distended and No Abdominal panniculus present Palpation (GI): Soft to palpation, nontender, no guarding, not rigid and No hepatosplenomegaly present Percussion: Yes normal to percussion Auscultation: normal bowel sounds Rectal Exam - Female: deferred Skin General skin exam: no rashes or lesions noted, turgor normal, skin not dry, no jaundice, No spider nevi and no striae Rashes: no rashes Nails: normal Neuro General: oriented to person, oriented to place and oriented to time Cranial nerves: Yes Equal, round and reactive pupils present and Yes Normal hearing present Speech: No Abnormal speech present Extrem General: Yes normal to inspection, No clubbing, No cyanosis and No edema Psych Appearance: grossly normal and well kempt Mental Status: mental status grossly normal Speech and movement: Normal speech and movement present Affect: normal affect Attitude: cooperative Thought process: Normal thought process present and not confabulating Thought content: Normal thought content present Insight: Limited insight present (Psych) Judgement: Limited judgement present (Psych) Assessment & Plan Assessment & Plan (1) Erosive esophagitis: Code(s): K22.10 - Ulcer of esophagus without bleeding Plan: Croatian #[id number] She continues to do well. She continues to do well with her medications; protonix and simethicone. She is satisfied with her GI regimen. She declines scope r/t her bradycardia after her last in 2018;? and has done Cologuard recently with her PCP. ROV 6 mos. (2) Abdominal bloating: Code(s): R14.0 - Abdominal distension (gaseous) (3) Tubular adenoma of colon: Comment: She declines scope r/t her bradycardia after her last in 2018;2018 colonoscopy was clear repeat in 5 years Code(s): D12.6 - Benign neoplasm of colon, unspecified (4) Colon cancer screening declined: Comment: She declines scope r/t her bradycardia after her last in 2018; Code(s): Z53.20 - Procedure and treatment not carried out because of patient's decision for unspecified reasons Medications: Changed From simethicone after meals 180 mg PO QID 30 days 120 caps 6RF R14.0 - Abdominal distension (gaseous) To simethicone after meals 180 mg PO QID 90 days 360 caps 1RF R14.0 - Abdominal distension (gaseous) Refilled pantoprazole 40 mg PO BID 180 tabs 1RF K22.10 - Ulcer of esophagus without bleeding Coding Level of Care Code Est Pt Level 3 (44661) Diagnoses Erosive esophagitis K22.10 Abdominal bloating R14.0 Tubular adenoma of colon D12.6 Colon cancer screening declined Z53.20
[2023-04-27 12:44] VITALS: BP 127/61; PULSE 60; BMI 19.9
== END 2023-04-27 13:08 | disposition home or self-care (01) ==
PROVIDERS: PCP Internal Medicine; Visit Provider Nurse Practitioner
DX: K22.10 Ulcer of esophagus without bleeding (principal); R14.0 Abdominal distension (gaseous); D12.6 Benign neoplasm of colon, unspecified; Z53.20 Procedure and treatment not carried out because of patient's decision for unspecified reasons
CPT/HCPCS: 99213

== ENCOUNTER → 2023-04-27 12:40 | Outpatient (BNVA) | payer OTHER, SELFPAY | PROVIDERS: PCP Internal Medicine; Visit Provider Nurse Practitioner | DX: K22.10 Ulcer of esophagus without bleeding (principal); R14.0 Abdominal distension (gaseous); D12.6 Benign neoplasm of colon, unspecified; Z53.20 Procedure and treatment not carried out because of patient's decision for unspecified reasons | CPT/HCPCS: 99212 ==

== ENCOUNTER 2023-08-05 09:11 | Emergency (ER) | payer OTHER, SELFPAY ==
--- NOTE | ~2023-08-05 | XR_ITS ---
EXAMINATION: XR CHEST CLINICAL INFORMATION: Productive cough. COMPARISON: 04/13/2020 TECHNIQUE: 2 views of the chest were obtained. FINDINGS: The lungs are well expanded. There is patchy airspace disease in the left upper lobe. No pleural effusion. Cardiac silhouette is unchanged. XR/XR chest 2V IMPRESSION: Left upper lobe pneumonia. Follow-up until resolution is advised.
[2023-08-05 09:18] VITALS: BP 114/54; PULSE 68; RESP 16; TEMP 36.6; O2SAT 97; BMI 20.1
[2023-08-05 09:42] LABS: COVID-19 Test Negative (Negative); IDNOW Serial# BCCEAD1C
[2023-08-05 10:21] LABS: IDNOW Serial# 08D9AD1C
[2023-08-05 10:22] LABS: Strep A Nucleic Acid Negative (Negative)
--- NOTE | 2023-08-05 10:45 | ED.URI ---
HPI - URI/Sore Throat General Chief Complaint: Upper Respiratory Symptoms Stated Complaint: Sore Throat Time Seen by Provider: 08/05/23 09:28 Source: patient, family, RN notes reviewed and old records reviewed Mode of arrival: ambulatory History of Present Illness HPI Narrative: 78-year-old female with past medical history of erosive esophagitis, diabetes, gastritis, presenting to the ED complaining of congestion, mild sore throat, and productive cough x1 week. Reports mild intermittent SOB. Denies chest pain, fever/chills, recent travel, pedal edema MD elicited complaint: cough and nasal congestion Related Data Home Medications Medication Instructions Recorded Confirmed cholecalciferol (vitamin D3) 50 50 mcg PO DAILY 11/06/20 mcg (2,000 unit) capsule levothyroxine 50 mcg tablet 50 mcg PO DAILY 11/06/20 lisinopril 5 mg tablet 5 mg PO DAILY 11/06/20 metformin 850 mg tablet 850 mg PO BEDTIME 11/06/20 rosuvastatin 20 mg tablet 20 mg PO BEDTIME 11/06/20 tramadol 50 mg tablet 50 mg PO Q6H PRN 11/06/20 zolpidem 5 mg tablet 5 mg PO BEDTIME PRN 11/06/20 aspirin 81 mg tablet,delayed 81 mg PO DAILY 10/27/22 release blood sugar diagnostic (FreeStyle #10 ea 10/27/22 Lite Strips) lancets 28 gauge (FreeStyle #100 ea 10/27/22 Lancets) cyanocobalamin (vitamin B-12) 1,000 mcg PO DAILY 04/27/23 1,000 mcg tablet (Vitamin B-12) Previous Rx's Medication Instructions Recorded ondansetron 4 mg disintegrating 4 mg PO Q8H PRN nausea and 09/19/20 tablet vomiting #20 tabs cyclobenzaprine 5 mg tablet 5 mg PO BEDTIME PRN muscle spasm 01/09/21 #7 tabs pantoprazole 40 mg tablet,delayed 40 mg PO BID #180 tabs 04/27/23 release simethicone 180 mg capsule 180 mg PO QID 90 days #360 caps 04/27/23 amoxicillin 875 mg-potassium 1 tab PO BID 7 days #14 tabs 08/05/23 clavulanate 125 mg tablet azithromycin 250 mg tablet See Rx Instructions PO .COMPLEX #6 08/05/23 tabs Allergies Allergy/AdvReac Type Severity Reaction Status Date / Time No Known Allergies Allergy Verified 10/27/22 09:00 Review of Systems Review of Systems: Constitutional: No Fever, No Chills ENT/Mouth: No Ear Pain, + Nasal Congestion, + sore throat, + Rhinorrhea, No Swallowing Difficulty Cardiovascular: No Chest Pain, + SOB Respiratory: + Cough, + Sputum, No Wheezing Gastrointestinal: No Nausea, No Vomiting, No Diarrhea, No Constipation, No Abdominal pain Musculoskeletal: No joint pain, No Myalgias, No Joint Swelling Skin: No Skin Lesions, No rash Neuro: No Weakness Yes all other systems are reviewed and are negative Constitutional: Constitutional: Reports as per [facility] Past Medical History Attestation statement: The following information was validated with the patient. Source: old records reviewed Medical History Gastritis Arthritis Sciatica Osteopenia Diabetes Surgical History H/O: hysterectomy Hx of colonoscopy History of esophagogastroduodenoscopy (EGD) Family History Family History Father No problems noted. Mother Diabetes Daughter Ovarian cancer Social History Social History Household Members: Spouse Alcohol intake: never Advance Directives: No Advance Directives Information Provided: No Current occupational status: retired Physical Exam Vital Signs: Vital Signs: Last Vital Signs Temp 98 F 08/05/23 09:18 Pulse 68 08/05/23 09:18 Resp 16 08/05/23 09:18 BP 114/54 L 08/05/23 09:18 Pulse Ox 97 08/05/23 09:18 O2 Del Method Room Air 08/05/23 09:18 BMI result Body Mass Index 20.1 Const: General: cooperative, healthy appearing and no acute distress Orientation/consciousness: patient oriented x3 Limitations: no limitations HEENT: Head: Yes normal to inspection and Yes atraumatic Ears: hearing grossly normal bilaterally General nose exam: Normal external nose present Face and sinus: Yes normal facial exam Mouth: Normal oral and palatal mucosa present Throat: Yes posterior oropharynx normal, Yes tonsils normal, Yes uvula midline, No peritonsillar mass, No uvula laterally displaced and No uvular edema Eyes: General: appearance normal, both eyes and all related structures EOM: EOMs intact bilaterally Neck: Neck: Yes normal visual inspection and Yes no meningeal signs Resp: Effort & Inspection: normal respiratory effort and no respiratory distress Auscultation: clear to auscultation bilaterally, no crackles, no rhonchi and no wheezes Cardio: Rate: regular rate Heart sounds: S1 normal heart sound present and S2 normal heart sound present GI: Inspection: Yes normal to inspection Palpation (GI): Soft to palpation, nontender, no guarding and not rigid Skin: Rashes: no rashes Wounds: no wounds Neuro: General: patient oriented x3, tone normal and no meningeal signs Cranial nerves: Yes CN's II-XII intact bilaterally Gait exam (Neuro): Normal gait present Extrem: General: Yes normal to inspection Course Course Course Narrative: -COVID-19 and rapid strep negative XR chest 2V IMPRESSION: Left upper lobe pneumonia. Follow-up until resolution is advised. > will obtain labs. Low suspicion for severe sepsis Results discussed with patient including worrisome signs and symptoms and strict return precautions, and when to return to the emergency department. They verbalized understanding and feel safe for discharge at this time. Medical Decision Making Medical Decision Making [facility] Narrative: 78-year-old female with past medical history of erosive esophagitis, diabetes, gastritis, presenting to the ED complaining of congestion, mild sore throat, and productive cough x1 week. On exam vital signs stable, NAD, nontoxic appearing, lungs CTA, posterior oropharynx WNL, uvula midline. No pedal edema. Concern for viral illness versus bronchitis versus pneumonia. Lower suspicion for ACS/PE. No evidence of PTS/retropharyngeal abscess. Plan: COVID-19 testing, rapid strep, CXR Please refer to course for remaining clinical decision making, interpretation of labs/imaging results, and discussions with consultants and/or family members. Differential Diagnosis Differential Diagnoses: The differential diagnosis associated with the presentation includes As above Admission/Observation Consideration of admission/observation: Escalation of care including admission/observation considered Lab Data [facility] Lab Attestation statement: I reviewed the patient's lab results. 08/05/23 10:50 08/05/23 10:50 Labs: Lab Results 08/05/23 08/05/23 08/05/23 Range/Units 09:23 10:06 10:50 WBC 5.9 (4.8-10.8) X10*3/uL RBC 3.93 L (4.20-5.50) X10*6/uL Hgb 11.7 L (12.0-16.0) g/dl Hct 36.0 L (37.0-47.0) % MCV 91.6 (80.0-98.0) fL MCH 29.8 (27.0-33.0) pg MCHC 32.5 (31.0-35.0) g/dl RDW 12.8 (11.0-16.0) % Plt Count 206 (160-400) X10*3/uL MPV 10.0 (9.4-12.3) fL Immature Gran % (Auto) 0.3 (0.0-0.4) % Neut % (Auto) 60.8 (45-73) % Lymph % (Auto) 24.2 (20-40) % Darke % (Auto) 4.4 (2-11) % Eos % (Auto) 10.0 H (0-4) % Baso % (Auto) 0.3 (0-2) % Lymph # (Auto) 1.4 (1.2-4.9) X10*3/uL Darke # (Auto) 0.3 (0.1-1.2) X10*3/uL Eos # (Auto) 0.6 H (0.0-0.4) X10*3/uL Baso # (Auto) 0.0 (0.0-0.2) X10*3/uL Abs Immat Gran (auto) 0.02 (0.00-0.03) X10*3/uL Absolute Neuts (auto) 3.6 (2.0-8.3) x10*3/uL Absolute Nucleated RBC 0.000 (0.0-0.012) X10*3/uL Nucleated RBC % (auto) 0.0 (0.0-0.2) /100WBC Sodium 142 (135-145) mmol/L Potassium 4.2 (3.3-5.1) mmol/L Chloride 107 (96-108) mmol/L Carbon Dioxide 29 (22-29) mmol/L Anion Gap 10 L (12-20) BUN 15 (9-16) mg/dL Creatinine 0.74 (0.5-1.4) mg/dL Estim Creat Clear Calc 42.0 Estimated GFR > 60 Random Glucose 114 (60-115) mg/dL Calcium 9.0 (8.4-10.2) mg/dL COVID-19 (THELMA) Negative (Negative) COVID-19 Clin Com See Note S. pyogenes GrpA PETEY Negative (Negative) Independent Interpretation I performed an independent interpretation of an: Plain X-Ray Radiology Impression Discussion of test interpretation with radiology: I have reviewed the radiologist's reading. Independent Historian Clinical information obtained from an independent historian. History obtained from or confirmed by: Spouse External Record Review External record reviewed: Inpatient record, Office record, Outpatient record, Prior outpatient labs, Prior outpatient radiology, Primary care record and Outside ED record Tests considered The following testing was considered but not selected: As above Prescription Management I considered prescription management with: Antiviral and Antibiotic Chronic Conditions Patient?s care impacted by: Diabetes Discharge Plan Discharge Clinical Impression: Pneumonia Patient Disposition: Home, Self-Care Instructions: Community Acquired Pneumonia (DC) Additional Instructions: You have pneumonia. Augmentin and Zithromax are antibiotics please take as prescribed Make sure you are staying hydrated Take Tylenol and Motrin as needed Follow-up with her doctor Is symptoms persist or worsen you constant worsening chest pain/shortness of breath or fever unresolved with meds return to the ED Tienes neumon?a. Augmentin y Zithromax son antibi?ticos, t?melos seg?n lo recetado. Aseg?rate de mantenerte hidratado. [place] Tylenol y Motrin seg?n sea necesario Seguimiento con knight m?dico. Si los s?ntomas persisten o empeoran, si el dolor en el pecho/dificultad para respirar o la fiebre no se resuelven con medicamentos, empeoran constantemente, regresa al servicio de urgencias. Prescriptions: New azithromycin 250 mg tablet See Rx Instructions .ROUTE .COMPLEX Qty: 6 0RF Rx Instructions: take 500 mg today (day 1), then 250 mg for 4 days (days 2-5) amoxicillin-pot clavulanate 875-125 mg tablet 1 tab PO BID 7 Days Qty: 14 0RF No Action ondansetron 4 mg tablet,disintegrating 4 mg PO Q8H PRN (Reason: nausea and vomiting) Qty: 20 0RF cyclobenzaprine 5 mg tablet 5 mg PO BEDTIME PRN (Reason: muscle spasm) Qty: 7 0RF tramadol 50 mg tablet 50 mg PO Q6H PRN zolpidem 5 mg tablet 5 mg PO BEDTIME PRN rosuvastatin 20 mg tablet 20 mg PO BEDTIME levothyroxine 50 mcg tablet 50 mcg PO DAILY metformin 850 mg tablet 850 mg PO BEDTIME lisinopril 5 mg tablet 5 mg PO DAILY cholecalciferol (vitamin D3) 50 mcg (2,000 unit) capsule 50 mcg PO DAILY aspirin 81 mg tablet,delayed release (DR/EC) 81 mg PO DAILY (DME) FreeStyle Lite Strips Strip See Rx Instructions .ROUTE BID Qty: 10 Rx Instructions: As directed (DME) lancets [FreeStyle Lancets] 28 gauge misc See Rx Instructions .ROUTE BID Qty: 100 Rx Instructions: As directed cyanocobalamin (vitamin B-12) [Vitamin B-12] 1,000 mcg tablet 1,000 mcg PO DAILY pantoprazole 40 mg tablet,delayed release (DR/EC) 40 mg PO BID Qty: 180 1RF simethicone 180 mg capsule 180 mg PO QID 90 Days Qty: 360 1RF Rx Instructions: after meals Referrals: Yesenia Rodriguez MD [Primary Care Provider] - 3 days Interventions: ED Discharge Assessment Last Done: 08/05/23 11:32 Discharge Date/Time: 08/05/23 11:32 Print Language: Nauruan
[2023-08-05 10:57] LABS: MANUAL DIFF FLAG NO
[2023-08-05 10:58] LABS: Basophils Percent Auto 0.3 % (0-2); Eosinophils Absolute Auto 0.6 X10*3/uL (0.0-0.4); Hemoglobin 11.7 g/dl (12.0-16.0); Imm Gran Abs Auto 0.02 X10*3/uL (0.00-0.03); Imm Gran Pct Auto 0.3 % (0.0-0.4); Lymphocytes Absolute Auto 1.4 X10*3/uL (1.2-4.9); Lymphocytes Percent Auto 24.2 % (20-40); Mean Corpuscular HGB Conc 32.5 g/dl (31.0-35.0); Mean Corpuscular Hemoglobin 29.8 pg (27.0-33.0); Mean Corpuscular Volume 91.6 fL (80.0-98.0); Monocytes Absolute Auto 0.3 X10*3/uL (0.1-1.2); Monocytes Percent Auto 4.4 % (2-11); Neutrophils Absolute Auto 3.6 x10*3/uL (2.0-8.3); Neutrophils Percent Auto 60.8 % (45-73); Platelet Count 206 X10*3/uL (160-400); Red Blood Count 3.93 X10*6/uL (4.20-5.50); Red Cell Distribution Width 12.8 % (11.0-16.0); White Blood Count 5.9 X10*3/uL (4.8-10.8)
[2023-08-05 11:18] LABS: Anion Gap 10 (12-20); Blood Urea Nitrogen 15 mg/dL (9-16); Carbon Dioxide 29 mmol/L (22-29); Chloride 107 mmol/L (96-108); Estimated Glomerular Filt Rate > 60; Glucose Random 114 mg/dL (60-115); Potassium 4.2 mmol/L (3.3-5.1); Sodium 142 mmol/L (135-145)
== END 2023-08-05 11:32 | disposition home or self-care (01) ==
PROVIDERS: Physician Assistant; Emergency Provider Emergency Medicine; PCP Internal Medicine
DX: J18.9 Pneumonia, unspecified organism (principal); J02.9 Acute pharyngitis, unspecified; R05.9 Cough, unspecified; R06.02 Shortness of breath; Z11.52 Encounter for screening for COVID-19; Z20.822 Contact with and (suspected) exposure to COVID-19; Z79.899 Other long term (current) drug therapy
CPT/HCPCS: 36415; 71046; 80048; 85025; 87635; 87651; 99282; 99283

== ENCOUNTER 2024-01-12 14:22 | Outpatient (REF) | payer OTHER, SELFPAY ==
[2024-01-12 15:59] LABS: MANUAL DIFF FLAG NO
[2024-01-12 16:24] LABS: Basophils Percent Auto 0.6 % (0-2); Eosinophils Absolute Auto 0.2 X10*3/uL (0.0-0.4); Eosinophils Percent Auto 3.2 % (0-4); Hematocrit 36.2 % (37.0-47.0); Hemoglobin 11.7 g/dl (12.0-16.0); Imm Gran Abs Auto 0.01 X10*3/uL (0.00-0.03); Imm Gran Pct Auto 0.2 % (0.0-0.4); Lymphocytes Absolute Auto 1.4 X10*3/uL (1.2-4.9); Mean Corpuscular HGB Conc 32.3 g/dl (31.0-35.0); Mean Corpuscular Hemoglobin 30.1 pg (27.0-33.0); Mean Corpuscular Volume 93.1 fL (80.0-98.0); Mean Platelet Volume 11.7 fL (9.4-12.3); Monocytes Absolute Auto 0.3 X10*3/uL (0.1-1.2); Monocytes Percent Auto 5.6 % (2-11); Neutrophils Absolute Auto 3.1 x10*3/uL (2.0-8.3); Neutrophils Percent Auto 62.4 % (45-73); Platelet Count 175 X10*3/uL (160-400); Red Blood Count 3.89 X10*6/uL (4.20-5.50); Red Cell Distribution Width 13.1 % (11.0-16.0)
[2024-01-12 16:41] LABS: Alanine Aminotransferase 12 U/L (0-31); Albumin Level 4.1 g/dL (3.5-5.0); Alkaline Phosphatase 49 U/L (39-117); Anion Gap 8 (12-20); Aspartate Amino Transferase 22 U/L (5-31); Bilirubin Direct 0.1 mg/dL (0.0-0.5); Bilirubin Total 0.3 mg/dL (0.0-1.0); Blood Urea Nitrogen 22 mg/dL (9-16); Calcium 9.3 mg/dL (8.4-10.2); Carbon Dioxide 31 mmol/L (22-29); Chloride 107 mmol/L (96-108); Cholesterol 116 mg/dL (<200); Estimated Glomerular Filt Rate > 60; Glucose Random 100 mg/dL (60-115); HDL Cholesterol 47 mg/dL (>40); LDL Cholesterol Calculated 54 mg/dL (<100); Potassium 4.3 mmol/L (3.3-5.1); Sodium 142 mmol/L (135-145); Total Protein 7.2 g/dL (6.5-8.0); Triglycerides 79 mg/dL (<150)
[2024-01-12 17:00] LABS: TSH reflex Free T4 0.87 uIU/mL (0.32-4.0); Vitamin D 25-OH Total 50.1 ng/mL (>30)
== END 2024-01-12 14:23 | disposition home or self-care (01) ==
LOC: HO.HHCL 14:22
PROVIDERS: Visit Provider Internal Medicine
DX: Z00.00 Encounter for general adult medical examination without abnormal findings (principal); Z13.6 Encounter for screening for cardiovascular disorders
CPT/HCPCS: 36415; 80048; 80061; 80076; 82306; 84443; 85025

== ENCOUNTER 2024-03-16 09:41 | Emergency (ER) | payer OTHER, SELFPAY ==
[2024-03-16 09:57] VITALS: BP 134/71; PULSE 72; RESP 18; TEMP 36.2; O2SAT 99; BMI 19.5
--- NOTE | 2024-03-16 10:32 | ED.GENADULT ---
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 Reports onset approximately 2 weeks ago. Has been applying a topical antibiotic ointment without much improvement. She denies any pus-like drainage, fevers, chills, additional skin lumps or lesions. Related Data Home Medications ?Medication ?Instructions ?Recorded ?Confirmed cholecalciferol (vitamin D3) 50 50 mcg PO DAILY 11/06/20 mcg (2,000 unit) capsule levothyroxine 50 mcg tablet 50 mcg PO DAILY 11/06/20 lisinopril 5 mg tablet 5 mg PO DAILY 11/06/20 metformin 850 mg tablet 850 mg PO BEDTIME 11/06/20 rosuvastatin 20 mg tablet 20 mg PO BEDTIME 11/06/20 tramadol 50 mg tablet 50 mg PO Q6H PRN 11/06/20 zolpidem 5 mg tablet 5 mg PO BEDTIME PRN 11/06/20 aspirin 81 mg tablet,delayed 81 mg PO DAILY 10/27/22 release blood sugar diagnostic (FreeStyle #10 ea 10/27/22 Lite Strips) lancets 28 gauge (FreeStyle #100 ea 10/27/22 Lancets) cyanocobalamin (vitamin B-12) 1,000 mcg PO DAILY 04/27/23 1,000 mcg tablet (Vitamin B-12) Previous Rx's ?Medication ?Instructions ?Recorded ondansetron 4 mg disintegrating 4 mg PO Q8H PRN nausea and 09/19/20 tablet vomiting #20 tabs cyclobenzaprine 5 mg tablet 5 mg PO BEDTIME PRN muscle spasm 01/09/21 #7 tabs pantoprazole 40 mg tablet,delayed 40 mg PO BID #180 tabs 04/27/23 release simethicone 180 mg capsule 180 mg PO QID 90 days #360 caps 04/27/23 amoxicillin 875 mg-potassium 1 tab PO BID 7 days #14 tabs 08/05/23 clavulanate 125 mg tablet azithromycin 250 mg tablet See Rx Instructions PO .COMPLEX #6 08/05/23 tabs cephalexin 500 mg capsule 500 mg PO QID #28 caps 03/16/24 Allergies Allergy/AdvReac Type Severity Reaction Status Date / Time No Known Allergies Allergy Verified 03/16/24 10:04 Review of Systems Review of Systems: Yes all other systems are reviewed and are negative [facility] Past Medical History Attestation statement: The following information was validated with the patient. Source: old records reviewed Medical History Gastritis Arthritis Sciatica Osteopenia Diabetes Surgical History H/O: hysterectomy Hx of colonoscopy History of esophagogastroduodenoscopy (EGD) Family History Family History Father No problems noted. Mother Diabetes Daughter Ovarian cancer Social History Social History Household Members: Spouse Alcohol intake: never Advance Directives: No Advance Directives Information Provided: No Do you have a plan to hurt others: No Plan Current occupational status: retired Physical Exam ED Vital Signs: Vital Signs - 24 hr 03/16/24 09:57 Temperature 97.2 F Pulse Rate 72 Respiratory Rate 18 Blood Pressure 134/71 Pulse Oximetry 99 Oxygen Delivery Method Room Air BMI result Body Mass Index 19.5 Appearance: Alert.?Oriented to person, place and time. No acute distress.?Normal affect. Head: scalp folliculitis posterior to the bilateral ears without acute abscess Neck: Normal inspection.? Neck supple.?? CVS: Heart sounds normal. Normal heart rate and rhythm.? Pulses normal.?? Respiratory: No respiratory distress.? Lung sounds clear to auscultation bilaterally?? Skin: Skin warm and dry.? Normal skin color.? ? Neuro: Moves all extremities spontaneously. Sensation intact bilaterally. Ambulates with normal steady gait. Medical Decision Making Medical Decision Making MDM Narrative: patient is a 78-year-old who presents emergency department for evaluation of folliculitis on the scalp posterior to the bilateral ears. No acute abscess. No additional skin rashes or lesions. Suspect less likely to be herpes zoster as this is bilateral. The area where it is present her hair is noted to be pulled taut into a ponytail, I suspect this may be a component possible etiology. We discussed using course of oral antibiotic given her duration of symptoms and response to topical antibiotics time, advised to refrain from pulling the hair back taught in this nature, applying warm moist compresses to the area and re-evaluation primary care provider. Sent prescription for cephalexin to pharmacy. All questions answered. Stable for discharge Differential Diagnosis Differential Diagnoses: The differential diagnosis associated with the presentation includes ( see narrative above) Independent Historian Clinical information obtained from an independent historian. History obtained from or confirmed by: Spouse ( present who confirms history) External Record Review External record reviewed: Outpatient record Prescription Management I considered prescription management with: Antibiotic Discharge Plan Discharge Clinical Impression: Folliculitis Patient Disposition: Home, Self-Care Instructions: Folliculitis (ED) Additional Instructions: apply warm moist compresses 2-3 times daily. Consume continue to apply the topical antibiotic ointment to the area. Given the extent and duration of it we will trial a course of oral antibiotics. Please contact your primary care provider to arrange for a follow-up visit within the next week. Prescriptions: New cephalexin 500 mg capsule 500 mg PO QID Qty: 28 0RF No Action ondansetron 4 mg tablet,disintegrating 4 mg PO Q8H PRN (Reason: nausea and vomiting) Qty: 20 0RF cyclobenzaprine 5 mg tablet 5 mg PO BEDTIME PRN (Reason: muscle spasm) Qty: 7 0RF azithromycin 250 mg tablet See Rx Instructions .ROUTE .COMPLEX Qty: 6 0RF Rx Instructions: take 500 mg today (day 1), then 250 mg for 4 days (days 2-5) amoxicillin-pot clavulanate 875-125 mg tablet 1 tab PO BID 7 Days Qty: 14 0RF tramadol 50 mg tablet 50 mg PO Q6H PRN zolpidem 5 mg tablet 5 mg PO BEDTIME PRN rosuvastatin 20 mg tablet 20 mg PO BEDTIME levothyroxine 50 mcg tablet 50 mcg PO DAILY metformin 850 mg tablet 850 mg PO BEDTIME lisinopril 5 mg tablet 5 mg PO DAILY cholecalciferol (vitamin D3) 50 mcg (2,000 unit) capsule 50 mcg PO DAILY aspirin 81 mg tablet,delayed release (DR/EC) 81 mg PO DAILY (DME) FreeStyle Lite Strips Strip See Rx Instructions .ROUTE BID Qty: 10 Rx Instructions: As directed (DME) lancets [FreeStyle Lancets] 28 gauge misc See Rx Instructions .ROUTE BID Qty: 100 Rx Instructions: As directed cyanocobalamin (vitamin B-12) [Vitamin B-12] 1,000 mcg tablet 1,000 mcg PO DAILY pantoprazole 40 mg tablet,delayed release (DR/EC) 40 mg PO BID Qty: 180 1RF simethicone 180 mg capsule 180 mg PO QID 90 Days Qty: 360 1RF Rx Instructions: after meals Referrals: Yesenia Rodriguez MD [Primary Care Provider] - Print Language: [place] Islander
[2024-03-16 11:00] VITALS: BP 128/63; PULSE 69; RESP 18; TEMP 36.6; O2SAT 100
== END 2024-03-16 11:01 | disposition home or self-care (01) ==
PROVIDERS: Emergency Provider Emergency Medicine; PCP Internal Medicine
DX: L73.9 Follicular disorder, unspecified (principal); R51.9 Headache, unspecified; Z79.899 Other long term (current) drug therapy
CPT/HCPCS: 99283; 99284

== ENCOUNTER 2024-05-14 10:32 | Emergency (ER) | payer OTHER, SELFPAY ==
[2024-05-14 10:52] VITALS: BP 117/60; PULSE 65; RESP 18; TEMP 36.7; O2SAT 98; BMI 19.3
== END 2024-05-14 15:49 | disposition left against medical advice (07) ==
LOC: HO.ED 15:45
PROVIDERS: Emergency Provider Emergency Medicine; PCP Internal Medicine
DX: H57.12 Ocular pain, left eye (principal)
CPT/HCPCS: 99281

== ENCOUNTER 2025-01-04 11:05 | Emergency (ER) | payer OTHER, SELFPAY ==
--- NOTE | ~2025-01-04 | XR_ITS ---
EXAMINATION: XR LUMBOSACRAL SPINE CLINICAL INFORMATION: left sided low back pain COMPARISON: 03/14/2020 TECHNIQUE: Three views of the lumbosacral spine. FINDINGS: There is a mild right convex scoliosis. There is a normal lordosis. There is no fracture, compression deformity, or suspicious bone lesion. There is a stable 4 mm degenerative appearing anterolisthesis of L4 on L5. There is a stable minimal degenerative retrolisthesis of T12 on L1. Alignment is otherwise anatomic. Multilevel moderate disc degeneration present with severe changes T12-L1, and L3-4. Normal facet alignment. Degenerative facet changes throughout, most notable L4-S1. No soft tissue abnormality aside from vascular calcifications. XR/XR lumbar spine 2-3V IMPRESSION: 1. No acute bony abnormalities. 2. Moderate degenerative spondylosis with mild dextroconvex scoliosis. Findings appear stable. Electronically signed by: Francisco Landrum MD 01/04/2025 12:13 PM EDT
[2025-01-04 11:07] VITALS: BP 133/91; PULSE 67; RESP 18; TEMP 36.2; O2SAT 100; BMI 19.2
--- NOTE | 2025-01-04 11:12 | ED.BACK ---
HPI - Back Pain/Injury General Chief Complaint: Back Pain/Injury Stated Complaint: back pain Time Seen by Provider: 01/04/25 12:26 Source: patient Mode of arrival: ambulatory Limitations: no limitations History of Present Illness ED Provider: Rj Amor HPI Narrative: 79 yold female with pmh of tubular adenooma, diabetes, GERD, high colesterol, presents to the ED for left sided lower back pain radating down left leg for the past two weeks. patient state pain is worse on movement. He denies any abdominal pain, dysuria, hematuria, nausea, vomiting, fever, chills, or any urinary/bowel incontinence. Patient denies any abdominal pain. Related Data Home Medications ?Medication ?Instructions ?Recorded ?Confirmed cholecalciferol (vitamin D3) 50 50 mcg PO DAILY 11/06/20 mcg (2,000 unit) capsule levothyroxine 50 mcg tablet 50 mcg PO DAILY 11/06/20 lisinopril 5 mg tablet 5 mg PO DAILY 11/06/20 metformin 850 mg tablet 850 mg PO BEDTIME 11/06/20 rosuvastatin 20 mg tablet 20 mg PO BEDTIME 11/06/20 tramadol 50 mg tablet 50 mg PO Q6H PRN 11/06/20 zolpidem 5 mg tablet 5 mg PO BEDTIME PRN 11/06/20 aspirin 81 mg tablet,delayed 81 mg PO DAILY 10/27/22 release blood sugar diagnostic (FreeStyle #10 ea 10/27/22 Lite Strips) lancets 28 gauge (FreeStyle #100 ea 10/27/22 Lancets) cyanocobalamin (vitamin B-12) 1,000 mcg PO DAILY 04/27/23 1,000 mcg tablet (Vitamin B-12) Previous Rx's ?Medication ?Instructions ?Recorded ondansetron 4 mg disintegrating 4 mg PO Q8H PRN nausea and 09/19/20 tablet vomiting #20 tabs cyclobenzaprine 5 mg tablet 5 mg PO BEDTIME PRN muscle spasm 01/09/21 #7 tabs simethicone 180 mg capsule 180 mg PO QID 90 days #360 caps 04/27/23 amoxicillin 875 mg-potassium 1 tab PO BID 7 days #14 tabs 08/05/23 clavulanate 125 mg tablet azithromycin 250 mg tablet See Rx Instructions PO .COMPLEX #6 08/05/23 tabs cephalexin 500 mg capsule 500 mg PO QID #28 caps 03/16/24 pantoprazole 40 mg tablet,delayed 40 mg PO BID #180 tabs 07/31/24 release Allergies Allergy/AdvReac Type Severity Reaction Status Date / Time No Known Allergies Allergy Verified 01/04/25 11:10 Review of Systems Review of Systems: low back pain Yes all other systems are reviewed and are negative [facility] Past Medical History Medical History Gastritis Arthritis Sciatica Osteopenia Diabetes Surgical History H/O: hysterectomy Hx of colonoscopy History of esophagogastroduodenoscopy (EGD) Family History Family History Father No problems noted. Mother Diabetes Daughter Ovarian cancer Social History Social History Household Members: Spouse Alcohol intake: never Advance Directives: No Advance Directives Information Provided: No Current occupational status: retired Physical Exam Vital Signs: Vital Signs: Last Vital Signs Temp 97.2 F 01/04/25 13:58 Pulse 67 01/04/25 13:58 Resp 18 01/04/25 13:58 BP 133/91 H 01/04/25 13:58 Pulse Ox 100 01/04/25 13:58 O2 Del Method Room Air 01/04/25 13:58 BMI result Body Mass Index 19.2 Const: General: cooperative, healthy appearing, comfortable, no acute distress, well developed, alert, awake and Physically active Orientation/consciousness: patient oriented x3 HEENT: Head: Yes normal to inspection, Yes No palpable skull fracture present, Yes normocephalic and Yes atraumatic Eyes: General: appearance normal, both eyes and all related structures Neck: Neck: Yes normal visual inspection, Yes full ROM, Yes no lymphadenopathy, Yes no meningeal signs, Yes trachea midline, Yes supple, No anterior neck swelling and No tender Chest: Chest palpation & inspection: normal inspection of the chest and normal palpation of entire chest wall Resp: Effort & Inspection: normal respiratory effort and able to speak in complete sentences Auscultation: clear to auscultation bilaterally Cardio: Jugular venous distension: no JVD Heart sounds: S1 normal heart sound present and S2 normal heart sound present GI: Inspection: Yes normal to inspection Palpation (GI): Soft to palpation, not firm, nontender, no guarding and not rigid : General: Yes no CVA tenderness Back/Spine/Pelvis: Back: no CVA tenderness and back tenderness (lumbar radiculopathy) Skin: General skin exam: no rashes or lesions noted, elasticity normal and turgor normal Neuro: General: patient oriented x3, gait normal, tone normal, moves all extremities, Normal light touch and pain sensation, no meningeal signs, no focal motor deficits, CN's II-XI intact bilaterally and normal sensation to monofilament Extrem: General: Yes normal to inspection, Yes full ROM and Yes capillary refill normal Psych: Appearance: grossly normal, well kempt and not disheveled Course Course Course Narrative: This is a Rapid Medical Examination (RME) performed by Davin Kong PA-C in triage. Full HPI, ROS, assessment and treatment plan per primary provider in the Main ED. 01/04/25 1114 ADNIEL Shen Hx: 79 yo Israeli speaking female here for eval of atraumatic left-sided lower back pain with radiation to her left lower abdomen x2 weeks. No urinary symptoms. No history of similar. No [id number] pain medications. No back pain red flags. PE/vitals: There is no midline spinous tenderness, no step-off deformity. No CVAT. Plan: labs, UA, xr Medications Administered Discontinued Medications Generic Name Dose Route Start Last Admin Trade Name Chengq PRN Reason Stop Dose Admin Ketorolac Tromethamine 30 mg 01/04/25 12:57 01/04/25 13:38 Ketorolac Tromethamine 30 Mg/Ml Vial IM 01/04/25 12:58 30 mg ONCE ONE Administration Prednisone 40 mg 01/04/25 12:58 01/04/25 13:38 Prednisone 20 Mg Tablet PO 01/04/25 12:59 40 mg ONCE ONE Administration Medical Decision Making Medical Decision Making [facility] Narrative: [age] year female presents to ED for low back pain exacerbation without any trauma. Patient's labs are normal. X-ray shows moderate degenerative arthritis. Not suspecting pyelonephritis, cauda equinus syndrome, epidural abscess, diverticulitis, colitis, kidney stones, osteomyelitis, appendicitis, small bowel obstuction, perotinitits, abdominal pain perofration, or any other life threatening etiologies. Patient given Toradol and prednisone. Patient is on daily aspirin. Patient already has tramadol and Tylenol at home. Patient informed continue taking those meds. Patient explained worrisome signs and informed to return to the ED immediately. Differential Diagnosis Differential Diagnoses: The differential diagnosis associated with the presentation includes (Lumbar radiculopathy) Admission/Observation Consideration of admission/observation: Escalation of care including admission/observation considered Lab Data MDM Lab Attestation statement: I reviewed the patient's lab results. 01/04/25 11:34 01/04/25 11:35 Labs: Lab Results 01/04/25 01/04/25 01/04/25 Range/Units 11:34 11:35 13:08 WBC 5.4 (4.8-10.8) X10*3/uL RBC 3.69 L (4.20-5.50) X10*6/uL Hgb 11.3 L (12.0-16.0) g/dl Hct 34.7 L (37.0-47.0) % MCV 94.0 (80.0-98.0) fL MCH 30.6 (27.0-33.0) pg MCHC 32.6 (31.0-35.0) g/dl RDW 13.3 (11.0-16.0) % Plt Count 166 (160-400) X10*3/uL MPV 10.5 (9.4-12.3) fL Immature Gran % (Auto) 0.6 H (0.0-0.4) % Neut % (Auto) 69.1 (45-73) % Lymph % (Auto) 22.3 (20-40) % [place] % (Auto) 4.8 (2-11) % Eos % (Auto) 2.6 (0-4) % Baso % (Auto) 0.6 (0-2) % Lymph # (Auto) 1.2 (1.2-4.9) X10*3/uL [place] # (Auto) 0.3 (0.1-1.2) X10*3/uL Eos # (Auto) 0.1 (0.0-0.4) X10*3/uL Baso # (Auto) 0.0 (0.0-0.2) X10*3/uL Abs Immat Gran (auto) 0.03 (0.00-0.03) X10*3/uL Absolute Neuts (auto) 3.7 (2.0-8.3) x10*3/uL Absolute Nucleated RBC 0.000 (0.0-0.012) X10*3/uL Nucleated RBC % (auto) 0.0 (0.0-0.2) /100WBC Sodium 144 (135-145) mmol/L Potassium 4.6 (3.3-5.1) mmol/L Chloride 111 H (96-108) mmol/L Carbon Dioxide 28 (22-29) mmol/L Anion Gap 10 L (12-20) BUN 16 (9-16) mg/dL Creatinine 0.76 (0.5-1.4) mg/dL Estim Creat Clear Calc 41.6 Estimated GFR > 60 Random Glucose 100 (60-115) mg/dL Calcium 9.1 (8.4-10.2) mg/dL Magnesium 2.1 (1.6-2.6) mg/dL Total Bilirubin 0.3 (0.0-1.0) mg/dL AST 30 (5-31) U/L ALT 19 (0-31) U/L Alkaline Phosphatase 52 (39-117) U/L Total Protein 6.5 (6.5-8.0) g/dL Albumin 3.8 (3.5-5.0) g/dL Urine Color Yellow Urine Appearance Clear Urine pH 8.0 (5.0-9.0) Ur Specific [place] 1.020 (1.005-1.025) Urine Protein 30 (1+) H (Neg-Trace) mg/dL Urine Glucose (UA) Negative (Negative) mg/dL Urine Ketones Negative (Negative) mg/dL Urine Blood Negative (Negative) Urine Nitrite Negative (Negative) Ur Leukocyte Esterase Negative (Negative) Urine RBC 0-2 (0-2) /HPF Urine WBC 0-5 (0-5) /HPF Ur Squamous Epith Cells 0-2 (0-2) /HPF Urine Bacteria None Seen (None Seen) Hyaline Casts 0-2 (0-2) /LPF Independent Interpretation I performed an independent interpretation of an: Plain X-Ray Radiology Impression Discussion of test interpretation with radiology: I have reviewed the radiologist's reading. Independent Historian Clinical information obtained from an independent historian. History obtained from or confirmed by: Spouse () and Other (ptient) Discharge Plan Discharge Clinical Impression: Lumbar radiculopathy Patient Disposition: Home, Self-Care Instructions: Lumbar Radiculopathy (ED) Additional Instructions: Recommend follow-up with your primary care provider. Return to the ED immediately for any worsening back pain, urinary/bowel incontinence, dysuria, hematuria, flank pain, fever, chills, nausea, vomiting, abdominal pain, paralysis of lower extremities, inability to walk, or any other concerning symptoms. Continue taking Tramadol and Tylenol at home for pain. FINDINGS: There is a mild right convex scoliosis. There is a normal lordosis. There is no fracture, compression deformity, or suspicious bone lesion. There is a stable 4 mm degenerative appearing anterolisthesis of L4 on L5. There is a stable minimal degenerative retrolisthesis of T12 on L1. Alignment is otherwise anatomic. Multilevel moderate disc degeneration present with severe changes T12-L1, and L3-4. Normal facet alignment. Degenerative facet changes throughout, most notable L4-S1. No soft tissue abnormality aside from vascular calcifications. XR/XR lumbar spine 2-3V IMPRESSION: 1. No acute bony abnormalities. 2. Moderate degenerative spondylosis with mild dextroconvex scoliosis. Findings appear stable. Electronically signed by: Francisco Landrum MD 01/04/2025 12:13 PM EDT Prescriptions: No Action pantoprazole 40 mg tablet,delayed release (DR/EC) 40 mg PO BID Qty: 180 1RF ondansetron 4 mg tablet,disintegrating 4 mg PO Q8H PRN (Reason: nausea and vomiting) Qty: 20 0RF cyclobenzaprine 5 mg tablet 5 mg PO BEDTIME PRN (Reason: muscle spasm) Qty: 7 0RF azithromycin 250 mg tablet See Rx Instructions .ROUTE .COMPLEX Qty: 6 0RF Rx Instructions: take 500 mg today (day 1), then 250 mg for 4 days (days 2-5) amoxicillin-pot clavulanate 875-125 mg tablet 1 tab PO BID 7 Days Qty: 14 0RF cephalexin 500 mg capsule 500 mg PO QID Qty: 28 0RF tramadol 50 mg tablet 50 mg PO Q6H PRN zolpidem 5 mg tablet 5 mg PO BEDTIME PRN rosuvastatin 20 mg tablet 20 mg PO BEDTIME levothyroxine 50 mcg tablet 50 mcg PO DAILY metformin 850 mg tablet 850 mg PO BEDTIME lisinopril 5 mg tablet 5 mg PO DAILY cholecalciferol (vitamin D3) 50 mcg (2,000 unit) capsule 50 mcg PO DAILY aspirin 81 mg tablet,delayed release (DR/EC) 81 mg PO DAILY (DME) FreeStyle Lite Strips Strip See Rx Instructions .ROUTE BID Qty: 10 Rx Instructions: As directed (DME) lancets [FreeStyle Lancets] 28 gauge misc See Rx Instructions .ROUTE BID Qty: 100 Rx Instructions: As directed cyanocobalamin (vitamin B-12) [Vitamin B-12] 1,000 mcg tablet 1,000 mcg PO DAILY simethicone 180 mg capsule 180 mg PO QID 90 Days Qty: 360 1RF Rx Instructions: after meals Referrals: Yesenia Rodriguez MD [Primary Care Provider] - (Lumbar radiculopathy) Esteban Martin MD, PhD [Physician] - (Back pain) Interventions: ED Discharge Assessment Last Done: 01/04/25 13:58 Discharge Date/Time: 01/04/25 13:58 Print Language: Israeli
[2025-01-04 11:40] LABS: MANUAL DIFF FLAG NO
[2025-01-04 11:42] LABS: Basophils Percent Auto 0.6 % (0-2); Eosinophils Absolute Auto 0.1 X10*3/uL (0.0-0.4); Eosinophils Percent Auto 2.6 % (0-4); Hematocrit 34.7 % (37.0-47.0); Hemoglobin 11.3 g/dl (12.0-16.0); Imm Gran Abs Auto 0.03 X10*3/uL (0.00-0.03); Imm Gran Pct Auto 0.6 % (0.0-0.4); Lymphocytes Absolute Auto 1.2 X10*3/uL (1.2-4.9); Lymphocytes Percent Auto 22.3 % (20-40); Mean Corpuscular HGB Conc 32.6 g/dl (31.0-35.0); Mean Corpuscular Hemoglobin 30.6 pg (27.0-33.0); Mean Platelet Volume 10.5 fL (9.4-12.3); Monocytes Absolute Auto 0.3 X10*3/uL (0.1-1.2); Monocytes Percent Auto 4.8 % (2-11); Neutrophils Absolute Auto 3.7 x10*3/uL (2.0-8.3); Neutrophils Percent Auto 69.1 % (45-73); Platelet Count 166 X10*3/uL (160-400); Red Blood Count 3.69 X10*6/uL (4.20-5.50); Red Cell Distribution Width 13.3 % (11.0-16.0); White Blood Count 5.4 X10*3/uL (4.8-10.8)
[2025-01-04 12:06] LABS: Alanine Aminotransferase 19 U/L (0-31); Albumin Level 3.8 g/dL (3.5-5.0); Anion Gap 10 (12-20); Aspartate Amino Transferase 30 U/L (5-31); Bilirubin Total 0.3 mg/dL (0.0-1.0); Blood Urea Nitrogen 16 mg/dL (9-16); Calcium 9.1 mg/dL (8.4-10.2); Carbon Dioxide 28 mmol/L (22-29); Chloride 111 mmol/L (96-108); Creatinine Clr Calc Pharmacy 41.6; Estimated Glomerular Filt Rate > 60; Glucose Random 100 mg/dL (60-115); Magnesium 2.1 mg/dL (1.6-2.6); Potassium 4.6 mmol/L (3.3-5.1); Sodium 144 mmol/L (135-145); Total Protein 6.5 g/dL (6.5-8.0)
--- OUTSIDE RECORDS SUMMARY | 2025-01-04 12:43 | XMS_ITS | Encounter Summary ---
Author Organization [employer] Address [address] [place] [address] Care Team Providers Care Automation Controls Engineer Name Role Phone Yesenia Rodriguez MD Primary Care Provide r Reason for Visit * Reason Onset Date Comments Med Refill 11/17/2022 Encounter Details Date Type Department Care Team ([facility] st Contact Info) Description 11/17/2022 Telephone [facility] MEDICINE [address], [place] [phone] Yesenia Rodriguez MD [address] [place], [place] [phone] Med Refill Social History Tobacco Use Types Packs/Day Years Used Date Smoking Tobacco: Never Assessed Comments Unknown Sex and Gender Information Value Date Recorded Sex Assigned at Female 07/19/2022 10:15 AM EDT Legal Sex Female 10:15 AM EDT Gender Identity Female 07/19/2022 10:15 AM EDT Sexual Orientation Straight 07/19/2022 10 :15 AM EDT documented as of this encounter Miscellaneous Notes * Telephone Encounter - Kacey Quiroga LPN - 11/17/2022 10:53 AM EST Medication was sent to [facility] #[id number] on 11/10/22. * Telephone Encounter - Darrell Yoo Emiliana - 11/17/2022 10:11 AM EST Tc from pt requesting med refill on zolpidem (Ambien) 5 MG tablet Please sent to [facility]/pharmacy #[id number] - [place] - [address] [facility] documented in this encounter Plan of Treatment Not on file documented as of this encounter Visit Diagnoses Not on filedocumented in this encounter Care Teams Automation Controls Engineer Relationship Specialty Start Date End Date Yesenia Rodriguez MD [address] [place] [id number] PCP - General Family Medicine 05/13/21 documented as of this encounter
--- OUTSIDE RECORDS SUMMARY | 2025-01-04 12:43 | XMS_ITS | Encounter Summary ---
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) Social History Tobacco Use Types Packs/Day Years Used Date Smoking Tobacco: Never Alcohol Use Standard Drinks/Week Comments No 0 (1 standard drink = 0.6 oz pur e alcohol) Comments Unknown Sex and Gender Information Value Date Recorded Sex Assigned at Not on file Legal Sex Female 4:36 PM EST Gender Identity Not on file Sexual Orientation Not on file documented as of this encounter Plan of Treatment Not on file documented as of this encounter Visit Diagnoses Diagnosis Chronic kidney disease stage 3 (HCC) Chronic kidney disease stage 2 Hypertensive disorder 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
--- OUTSIDE RECORDS SUMMARY | 2025-01-04 12:43 | XMS_ITS | Encounter Summary ---
Author Organization [employer] Address [address] [place] [address] Care Team Providers Care Remote Control Mirror Installer Name Role Phone Yesenia Rodriguez MD Primary Care Provide r Reason for Visit * Reason Comments Med Refill Encounter Details Date Type Department Care Team ([facility] st Contact Info) Description 08/12/2023 Refill [facility] MEDICINE [address] [place], [place] [phone] Yesenia Rodriguez MD [address] [place] [address] Social History Tobacco Use Types Packs/Day Years Used Date Smoking Tobacco: Never Passive Smoke Exposure: Never Smokeless Tobacco: Never Depression Answer Date Recorded Patient Health Questionnaire-9 Score 0 01/26/2023 Housing Stability Answer Date Recorded What is your housing situation today? I have nico jamil 07/14/[address] you li ve. Do you have problems with any of the following? None of the above 07/14/2023 Food Insecurity Answer Date Recorded Within the past 12 months, y ou worried that your food would run out before you got money to buy more: Never True 07/14/2023 Within the past 12 months,th e food you bought just didn't last and you didn't have enough money to get more: Never True Transportation Answer Date Recorded In the past 12 months, has l ack of transportation kept you from medical appts, meetings, work or from getting things needed for daily living? No 07/14/2023 Utilities Answer Date Recorded In the past 12 months, has t he electric, gas, oil or water company threatened to shut off services in your home? No 07/14/2023 Depression Answer Date Recorded Patient Health Questionnaire-2 Score 0 01/26/2023 Comments Unknown Sex and Gender Information Value Date Recorded Sex Assigned at Female 07/19/2022 10:15 AM EDT Legal Sex Female 10:15 AM EDT Gender Identity Female 07/19/2022 10:15 AM EDT Sexual Orientation Straight 07/19/2022 10 :15 AM EDT documented as of this encounter Plan of Treatment Not on file documented as of this encounter Visit Diagnoses Not on filedocumented in this encounter Additional Health Concerns Assessment Noted Time PHQ-9 Depression Total Score: 0 01/27/20 23 2:42 PM EDT documented as of this encounter Care Teams Remote Control Mirror Installer Relationship Specialty Start Date End Date Yesenia Rodriguez MD [address] [place] [address] PCP - General Family Medicine 05/13/21 documented as of this encounter
--- OUTSIDE RECORDS SUMMARY | 2025-01-04 12:43 | XMS_ITS | Encounter Summary ---
Author Organization [employer] Address [address] [facility] [address] [facility] [place] [address] Care Team Providers Care Ultrasound Specialist Name Role Phone Yesenia Rodriguez MD Primary Care Provide r Reason for Visit * Reason Comments Med Refill Encounter Details Date Type Department Care Team ([facility] st Contact Info) Description 08/13/2023 Refill [facility] MEDICINE [address] [place], [place] [phone] Yesenia Rodriguez MD [address] [place] [address] Social History Tobacco Use Types Packs/Day Years [...] documented as of this encounter Care Teams Ultrasound Specialist Relationship Specialty Start Date End Date Yesenia Rodriguez MD [address] [place] [address] PCP - General Family Medicine 05/13/21 documented as of this encounter
--- OUTSIDE RECORDS SUMMARY | 2025-01-04 12:43 | XMS_ITS | Clinical Summary ---
Author Organization [employer] Address [address] [facility] [address] [place] [address] Care Team Providers Care Hull Sorter Name Role Phone Yesenia Rodriguez MD Primary Care Provide r Allergies No known active allergies Medications Blood Glucose Monitoring Suppl (FreeStyle Lite) w/Device kitIndications:T ype 2 diabetes mellitus without complication, without long-term current use of insulin (CMS/FORMERLY [facility]) 1 kit 2 times daily. 1 kit 06/08/20 23 Active Blood Glucose Monitoring Suppl (ONE TOUCH ULTRA 2) w/Device kit Use to check BS 2x daily 1 kit 07/14/20 23 Active OneTouch Delica Lancets 33G misc Use to check BS 2x daily 100 each 11 07/14/20 23 Active metFORMIN (Glucophage) 500 MG tabletIndication s:Type 2 diabetes mellitus without complication, without long-term current use of insulin (CMS/HCC) Take 1 tablet (500 mg) by mouth with breakfast and with evening meal. 60 tablet 11 01/12/20 24 025 Active cholecalciferol VITAMIN D (Vitamin D-3) 50 MCG (1999) capsule TAKE 1 CAPSULE BY MOUTH EVERY DAY 90 capsule 1 03/15/20 24 Active aspirin (Aspirin Low Dose) 81 MG EC tablet TOME 1 TABLETA POR VIA ORAL TODOS [place] EN LA MANANA 90 tablet 1 06/15/20 24 Active rosuvastatin (Crestor) 20 MG tablet TAKE 1 TABLET BY MOUTH AT BEDTIME 90 tablet 3 07/10/20 24 Active glucose blood (OneTouch Ultra) test stripIndications :Type 2 diabetes mellitus without complication, without long-term current use of insulin (CMS/HCC) USE JAMAR LO INDICADO DOS VECES AL LAWRENCE 100 strip 11 07/23/20 24 Active Multiple Vitamins-Mineral s (PreserVision AREDS 2) capsuleIndicatio ns:Intermediate stage nonexudative age-related macular degeneration of both eyes Take 1 capsule by mouth 2 times daily. 120 capsule 11 10/16/19 25 026 Active lisinopril 5 MG tablet TOME JEN TABLETA TODOS [place] 90 tablet 3 10/22/19 25 Active levothyroxine (Synthroid, Levoxyl) 50 MCG tablet TAKE 1 TABLET BY MOUTH EVERY DAY 90 tablet 1 12/11/19 25 Active zolpidem (Ambien) 5 MG tabletIndication s:Primary insomnia TOME 1 TABLETA POR VIA ORAL TODOS [place] AL ACOSTARSE CUANDO SEA NECESARIO PARA DORMIR 30 tablet 12/13/19 25 Active levothyroxine (Synthroid, Levoxyl) 50 MCG tablet TAKE 1 TABLET BY MOUTH EVERY DAY 90 tablet 09/11/20 24 025 Discontinued zolpidem (Ambien) 5 MG tabletIndication s:Primary insomnia TOME 1 TABLETA POR VIA ORAL TODOS [place] AL ACOSTARSE CUANDO SEA NECESARIO PARA DORMIR 30 tablet 11/13/19 25 025 Discontinued zoster vaccine-recombin ant adjuvanted (Shingrix) 50 MCG/0.5ML vaccineIndicatio ns:Type 2 diabetes mellitus without complication, without long-term current use of insulin ([facility]) Inject 0.5 mL (50 mcg) into the muscle 1 (one) time for 1 dose. 0.5 mL 12/21/19 25 025 traMADol (Ultram) 50 MG tabletIndication s:Chronic right-sided low back pain with right-sided sciatica Take 1 tablet (50 mg) by mouth every 8 (eight) hours if needed for severe pain for up to 7 days. 21 tablet 12/21/19 25 025 Active Problems Problem Noted Date Diagnosed Date Chronic right-sided low back pain with right-jonas ed sciatica 12/20/2024 Assessment & Plan (12/20/2024 4:25 PM EDT): Continue with tramadol as needed Intermediate stage nonexudat tate age-related macular degeneration of both eyes 07/16/2024 07/16/2024 Encounter for preventive care 01/12/2024 Assessment & Plan (01/17/2024 3:42 PM EDT): See HPI Primary hypertension 01/12/2024 Assessment & Plan (12/20/2024 4:23 PM EDT): Maintenance: BMP: ordered Lipid Panel: ordered ASCVD Risk: Calculate pending updated labs I advised: - Aerobic exercise to reduce BP. Initial goal of 30 min walk 3-5x/week. Increase as tolerated. - low-sodium diet (goal: <2g/day) and heart healthy diet such as DASH to reduce BP and prevent ASCVD. - Home BP monitoring 1-2 x day with goal of <140/90. - Seek immediate medical attention for chest pain, palpitations, SOB, syncope, or sudden changes in mental status. - Do not change or discontinue current prescriptions without first consulting health care provider Assessment & Plan (06/20/2024 3:06 PM EDT): I advise: - Aerobic exercise to reduce BP. Initial goal of 30 min walk 3-5x/week. Increase as tolerated. - low-sodium diet (goal: <2g/day) and heart healthy diet such as DASH to reduce BP and prevent ASCVD. - Home BP monitoring 1-2 x day with goal of <140/90. - Seek immediate medical attention for chest pain, palpitations, SOB, syncope, or sudden changes in mental status. - Do not change or discontinue current prescriptions without first consulting health care provider Assessment & Plan (01/17/2024 3:41 PM EDT): -Patient did not took her blood pressure medication today, I advise not to miss any dose, I also advise: - Aerobic exercise to reduce BP. Initial goal of 30 min walk 3-5x/week. Increase as tolerated. - low-sodium diet (goal: <2g/day) and heart healthy diet such as DASH to reduce BP and prevent ASCVD. - Home BP monitoring 1-2 x day with goal of <140/90. - Seek immediate medical attention for chest pain, palpitations, SOB, syncope, or sudden changes in mental status. - Do not change or discontinue current prescriptions without first consulting health care provider Hypertensive disorder 01/26/2023 Assessment & Plan (01/26/2023 3:20 PM EDT): Maintenance: BMP: ordered today Lipid Panel: ordered today ASCVD Risk: Calculate pending updated labs - Aerobic exercise to reduce BP. Initial goal of 30 min walk 3-5x/week. Increase as tolerated. - low-sodium diet (goal: <2g/day) and heart healthy diet such as DASH to reduce BP and prevent ASCVD. - Home BP monitoring 1-2 x day with goal of <140/90. - Seek immediate medical attention for chest pain, palpitations, SOB, syncope, or sudden changes in mental status. - Do not change or discontinue current prescriptions without first consulting health care provider (lisinopril 5mg daily) Sciatica 01/26/2023 Type 2 diabetes mellitus 01/26/2023 Assessment & Plan (12/20/2024 4:24 PM EDT): Diabetes is: controlled - Lab Results Component Value Date HGBA1C 6.1 (A) 12/20/2024 HGBA1C 6.0 06/20/2024 HGBA1C 5.8 01/12/2024 - Lab Results Component Value Date MICROALBUR 0.5 04/01/2022 CREATININE 0.78 01/12/2024 -Changes: none - Diabetic eye exam: Up-to-date - Diabetic foot exam: Referral done - Continue lifestyle modifications - Continue current medications - Follow up: 3 months Assessment & Plan (06/20/2024 3:06 PM EDT): Diabetes is: controlled - Lab Results Component Value Date HGBA1C 6.0 06/20/2024 HGBA1C 5.8 01/12/2024 HGBA1C 6.0 01/26/2023 - Lab Results Component Value Date MICROALBUR 0.5 04/01/2022 CREATININE 0.78 01/12/2024 -Changes: none - Diabetic eye exam:pending - Diabetic foot exam:pending - Continue lifestyle modifications - Continue current medications - Follow up: 3 months Assessment & Plan (01/17/2024 3:42 PM EDT): Diabetes is: controlled - Lab Results Component Value Date HGBA1C 5.8 01/12/2024 HGBA1C 6.0 01/26/2023 HGBA1C 5.7 (H) 03/30/2022 - Lab Results Component Value Date MICROALBUR 0.5 04/01/2022 CREATININE 0.78 01/12/2024 -Changes: none - Diabetic eye exam:referral today - Diabetic foot exam:pending - Continue lifestyle modifications - Continue current medications - Follow up: 3 months Assessment & Plan (01/26/2023 3:19 PM EDT): - Lab Results Component Value Date HGBA1C 5.7 (H) 03/30/2022 HGBA1C 5.6 03/24/2021 - Lab Results Component Value Date MICROALBUR 0.5 04/01/2022 CREATININE 0.87 04/30/2022 - - Diabetic eye exam: up to date - Diabetic foot exam: done today - Continue lifestyle modifications - Continue current medications (metformin 850mg BID) Weight loss 01/26/2023 Numbness and tingling in both hands 01/26/2023 Assessment & Plan (01/26/2023 3:20 PM EDT): Labs ordered today 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 07/11/2017 Osteopenia 12/12/2015 Degeneration of lumbar intervertebral disc 09/04 Diabetic nephropathy associa tahir with type 2 diabetes mellitus 09/04/2015 Mixed hyperlipidemia 09/04/2015 Acquired hypothyroidism 09/04/2015 Indigestion 09/04/2015 Overweight 09/04/2015 Chronic kidney disease 09/04/2015 Steatosis of liver 09/04/2015 Vitamin D deficiency 09/04/2015 Encounters Date Type Department Care Team Description 01/04/2025 Orders Only GENERIC EXTERNAL DATA DEPARTMENT Provider, Generic External Data 12/20/2024 1:45 PM EDT Office Visit [facility] [address] [place] [phone] Yesenia Rodriguez MD Chronic right-sided low back pain with right-sided sciatica (Primary Dx); Type 2 diabetes mellitus without complication, without long-term current use of insulin ([facility]); Primary hypertension 12/20/2024 Travel 12/12/2024 Refill [facility] [address] [place] [address] Yesenia Rodriguez MD Primary insomnia 12/11/2024 Patient Outreach [facility] [address] [place] [address] Yesenia Rodriguez MD Care Coordination ([facility] outreach for SDOH-patient declined to participate ) 12/11/2024 Patient Outreach [facility] [address] [place] [address] Yesenia Rodriguez MD Pre-visit Planning (SDOH screening positive and tobacco screening negative) 12/09/2024 Refill [facility] [address] [place] [address] Yesenia Rodriguez MD 11/12/2024 Refill [facility] [address] [place] [address] Yesenia Rodriguez MD Primary insomnia 10/20/2024 Refill [facility] [address] [place] [address] Rupinder Jain MD 10/16/2024 1:00 PM EST Office Visit [facility] [address] [place] [address] Tamiko Thorpe, OD Intermediate stage nonexudative age-related macular degeneration of both eyes (Primary Dx); Drusen of both optic discs 10/16/2024 Travel 10/12/2024 Refill [facility] [address] [place] [address] Yesenia Rodriguez MD Primary insomnia from Last 3 Months Immunizations Name Administration Dates Next Due Hep B, adult 12/30/2016,12/12/2015,09/04/2015 Influenza High-dose Quadriva lent Preservative Free 09/10/2020 Influenza Quadrivalent Adjuvanted 05/30/2023 Influenza injectable quadriv alent IIV4 with preservative 06/15/2016 Influenza injectable quadriv alent preservative free 06/26/2019,06/12/2015 Influenza, High Dose Seasona l, Preservative Free 06/20/2024,07/06/2018,07/11/2017 Influenza, IIV3, injectable 08/01/2014, 1 Influenza, Split (incl. castro fied surface antigen) 07/11/2017,05/29/2013,05/29/2012 Pneumococcal Conjugate PCV 13 09/04/2015 Pneumococcal Polysaccharide PPSV23 02/12/2017, Tdap 05/29/2012 Zoster, live 02/07/2014 Social History Tobacco Use Types Packs/Day Years Used Date Smoking Tobacco: Never Passive Smoke Exposure: Never Smokeless Tobacco: Never Tobacco Cessation:Counseling Given: Not Answered Alcohol Use Standard Drinks/Week Comments Never 0 (1 standard drink = 0.6 oz pur e alcohol) Depression Answer Date Recorded Patient Health Questionnaire-9 Score 0 06/20/2024 Patient Health Questionnaire-9 Score 0 06/20/2024 Last PHQ-9: Questionnaire Data Not on file 1 Housing Stability Answer Date Recorded What is your housing situation today? I have nicocathy jamil 12/11/[address] you li ve. Do you have problems with any of the following? Lead [employer] 12/11/2024 Food Insecurity Answer Date Recorded Within the [...] Date Recorded Patient Health Questionnaire-2 Score 0 06/20/2024 Internet Access Answer Date Recorded Internet Access Q1 No 12/11/2024 Internet Access Q2 I do not want or need it 11/18 Comments Unknown Sex and Gender Information Value Date Recorded Sex Assigned at Female 07/19/2022 10:15 AM EDT Legal Sex Female 10:15 AM EDT Gender Identity Female 07/19/2022 10:15 AM EDT Sexual Orientation Straight 07/19/2022 10 :15 AM EDT Last Filed Vital Signs Vital Sign Reading Time Taken Comments Blood Pressure 124/70 12/20/2024 1:24 PM EDT Pulse 69 12/20/2024 1:24 PM EDT Temperature 35.8 ??C (96.4 ??F) 12/20/2024 1:24 PM ED T Respiratory Rate 12 12/20/2024 1:24 PM EDT Oxygen Saturation 100% 06/20/2024 2:33 PM EDT Inhaled Oxygen Concentration - - Weight 45.5 kg (100 lb 6.4 oz) 12/20/2024 1:24 P M EDT Height 152.4 cm (5') 12/20/2024 1:24 PM EDT Body Mass Index 19.61 12/20/2024 1:24 PM EDT Plan of Treatment Health Maintenance Due Date Last Done Comments Alcohol/Substance Use Screening 1957 Hepatitis A Vaccines (1 of 2 - Risk 2-dose series) 1963 Zoster Vaccines (2 of 3) 04/04/2014 02/07/2014 RSV Patients and Patients Aged 60 years or older (1 - 1-dose 75+ series) 2019 DTaP/Tdap/Td Vaccines (2 - Td or Tdap) 05/29/2022 05/29/2012 Diabetes: Foot Exam 01/27/2024 01/26/2023, COVID-19 Vaccine ( season) 2024 09/21/2021, 12/15/2020 Lipid Panel 01/11/2025 01/12/2024, 0501/2023, 03/30/2022, Additional history exists Depression Screening 06/20/2025 06/20/2024, 06/20/20 24 Diabetes: Hemoglobin A1C 06/21/2025 0403/2 025, 06/20/2024, 01/12/2024, Additional history exists SDOH Screening 12/11/2025 12/11/2024 Tobacco Screening 12/20/2025 12/20/2024 Eye Exam 10/16/2026 10/16/2024, 09/20, 10/16/2024, Additional history exists Hepatitis B Vaccines Completed 12/30/2016, 12/12/2015, 09/04/2015 Pneumococcal Vaccine: 50+ Years Completed 02/12/2017, 09/04/2015, 08/04/2009 Influenza Vaccine Completed 06/20/2024, , 09/10/2020, Additional history exists HIB Vaccines Aged Out No longer eligi ble based on patient's age to complete this topic HPV Vaccines Aged Out No longer eligi ble based on patient's age to complete this topic IPV Vaccines Aged Out No longer eligi ble based on patient's age to complete this topic Meningococcal Vaccine Aged Out No isabel sharon eligible based on patient's age to complete this topic RSV under 20 months Aged Out No longe r eligible based on patient's age to complete this topic Rotavirus Vaccines Aged Out No longer eligible based on patient's age to complete this topic Procedures Procedure Name Priority Date/Time Associated Diagnosis Comments MAGNESIUM Routine 01/04/2025 11:35 AM EDT COMPREHENSIVE METABOLIC PANEL Routine 01/04/2025 11:35 AM EDT CBC WITH AUTO DIFFERENTIAL Routine 01/04/2025 11:34 AM EDT XR LUMBAR SPINE 2-3 VIEWS Routine 01/04/2025 11:11 AM EDT POCT GLYCATED HEMOGLOBIN, TOTAL Routine 12/20/2024 1:26 PM EDT Type 2 diabetes mellitus without complication, without long-term current use of insulin ([facility]) POCT GLUCOSE Routine 12/20/2024 1:25 PM EDT Type 2 diabetes mellitus without complication, without long-term current use of insulin ([facility]) AUTOMATED VISUAL FIELD, EXTENDED - OU - BOTH EYES Routine 10/16/2024 3:30 PM EST Drusen of both optic discs OCT, RETINA - OU - BOTH EYES Routine 10/16/2024 1:00 PM EST Intermediate stage nonexudative age-related macular degeneration of both eyes LIPID PANEL, STANDARD Routine 01/12/2024 2:23 PM EDT Encounter for preventive care from Last 3 Months or Most Recently Relevant to Health Maintenance Results * (ABNORMAL) CBC auto differential (01/04/2025 11:34 AM EDT) White Blood Count 5.4 4.8 - 10.8 X10*3/uL [facility] Red Blood Count 3.69(L) 4.20 - 5.50 X10*6/uL [facility] Hemoglobin 11.3(L) 12.0 - 16.0 g/dl [facility] Hematocrit 34.7(L) 37.0 - 47.0 % [facility] Mean Corpuscular Volume 94.0 80.0 - 98.0 fL [facility] Mean Corpuscular Hemoglobin 30.6 27.0 - 33.0 pg [facility] Mean Corpuscular HGB Conc 32.6 31.0 - 35.0 g/dl [facility] Red Cell Distribution Width 13.3 11.0 - 16.0 % [facility] Platelet Count 166 160 - 400 X10*3/uL [facility] Mean Platelet Volume 10.5 9.4 - 12.3 fL [facility] Neutrophils Percent Auto 69.1 45 - 73 % [facility] Imm Gran Pct Auto 0.6(H) 0.0 - 0.4 % [facility] Lymphocytes Percent Auto 22.3 20 - 40 % [facility] Monocytes Percent Auto 4.8 2 - 11 % [facility] Eosinophils Percent Auto 2.6 0 - 4 % [facility] Basophils Percent Auto 0.6 0 - 2 % [facility] NRBC Pct Auto 0.0 0.0 - 0.2 /100WBC [facility] Neutrophils Absolute Auto 3.7 2.0 - 8.3 x10*3/uL [facility] Imm Gran Abs Auto 0.03 0.00 - 0.03 X10*3/uL [facility] Lymphocytes Absolute Auto 1.2 1.2 - 4.9 X10*3/uL [facility] Monocytes Absolute Auto 0.3 0.1 - 1.2 X10*3/uL [facility] Eosinophils Absolute Auto 0.1 0.0 - 0.4 X10*3/uL [facility] Basophils Absolute Auto 0.0 0.0 - 0.2 X10*3/uL [facility] NRBC Abs Auto 0.000 0.0 - 0.012 X10*3/uL [facility] 01/04/2025 11:3 4 AM EDT 01/04/2025 11:39 AM EDT us Generic External Data Provider LAB BLOOD ORDERAB LES Final Result [facility] [address] [place] [address] [phone] * XR Lumbar Spine 2-3 Views (01/04/2025 11:11 AM EDT) Anatomical Region Laterality Modality Spine, L-spine Radiographic Mirela ging 01/04/2025 11:1 1 AM EDT Narrative 01/04/2025 12:15 PM EDT ? [facility] ?[address] ?[place] [address] ?XRay Report ? Signed ? Patient: Santo,Tran ?MR#: [id number] ?? 8 ? : 1945 ?Acct:[id number] ? Age/Sex: 79 / F ?ADM Date: /18/25 ? Loc: HO.ED ? Attending Dr: ? Ordering Physician: Allie Kong ?? Date of Service: 04/ ?? Procedure(s): XR lumbar spine 2-3V ?? Accession Number(s): [id number] ? cc: Yesenia Rodriguez MD; Allie Kong ? EXAMINATION: ?? XR LUMBOSACRAL SPINE ? CLINICAL INFORMATION: ?? left sided low back pain ? COMPARISON: ?? 03/14/2020 ? TECHNIQUE: ?? Three views of the lumbosacral spine. ? FINDINGS: ?? There is a mild right convex scoliosis. There is a normal lordosis. ?? There is no fracture, compression deformity, or suspicious bone lesion. ?? There is a stable 4 mm degenerative appearing anterolisthesis of L4 on ?? L5. ?? There is a stable minimal degenerative retrolisthesis of T12 on L1. ?? Alignment is otherwise anatomic. ?? Multilevel moderate disc degeneration present with severe changes ?? T12-L1, and L3-4. ? Normal facet alignment. Degenerative facet changes throughout, most ?? notable L4-S1. ? No soft tissue abnormality aside from vascular calcifications. ? XR/XR lumbar spine 2-3V ?? IMPRESSION: ?? 1. No acute bony abnormalities. ?? 2. Moderate degenerative spondylosis with mild dextroconvex scoliosis. ?? Findings appear stable. ? Electronically signed by: ??Francisco Landrum MD ??01/04/2025 12:13 PM EDT RP ? Dictated By: ?Francisco Landrum MD ? Signed By: ?<Electronically signed by Francisco Landrum MD in OV> ?01/04/25 1213 ? DD/ 1111 ? TD/TT: 01/04/25 1155 ? Labor/Excavator: ? Procedure Note Marie Early - 01/04/2025 [place] [address] XRay Report Signed Patient: Tran SantoMR#: [id number] 8 : 4Acct:[id number] Age/Sex: 79 / FADM Date: 01/04/25 Loc: HO.ED Attending Dr: Ordering Physician: Allie Kong Date of Service: 01/04/25 Procedure(s): XR lumbar spine 2-3V Accession Number(s): [id number] cc: Yesenia Rodriguez MD; Allie Kong EXAMINATION: XR LUMBOSACRAL SPINE CLINICAL INFORMATION: left sided low back pain COMPARISON: 03/14/2020 TECHNIQUE: Three views of the lumbosacral spine. FINDINGS: There is a mild right convex scoliosis. There is a normal lordosis. There is no fracture, compression deformity, or suspicious bone lesion. There is a stable 4 mm degenerative appearing anterolisthesis of L4 on L5. There is a stable minimal degenerative retrolisthesis of T12 on L1. Alignment is otherwise anatomic. Multilevel moderate disc degeneration present with severe changes T12-L1, and L3-4. Normal facet alignment. Degenerative facet changes throughout, most notable L4-S1. No soft tissue abnormality aside from vascular calcifications. XR/XR lumbar spine 2-3V IMPRESSION: 1. No acute bony abnormalities. 2. Moderate degenerative spondylosis with mild dextroconvex scoliosis. Findings appear stable. Electronically signed by: Francisco Landrum MD 01/04/2025 12:13 PM EDT Dictated By: Francisco Lnadrum MD Signed By: <Electronically signed by Francisco Landrum MD in OV> 01/04/25 1213 DD/ 1111 TD/TT: 01/04/25 1155 Labor/Excavator: [facility] External Provider IMG XR PROCEDURES Edited Result - Final * (ABNORMAL) POCT HGB A1C (12/20/2024 1:26 PM EDT) Hemoglobin A1C 6.1(A) 4.0 - 6.0 % QC Media Lot # [id number] Lot# Expiration Date Blood 12/20/2024 1:26 PM EDT Result [facility] Yesenia Nicholas MD POINT OF CARE TEST EN TER/EDIT ORDERABLES Final Result * POCT Glucose (12/20/2024 1:25 PM EDT) Glucose Blood, POC 124 60 - 200 mg/dL QC Media Lot # [id number] Lot# Expiration Date Blood Capillary blood specimen / Unknown 12/20/2024 1:25 PM EDT Result [facility] Yesenia Nicholas MD POINT OF CARE TEST EN TER/EDIT ORDERABLES Final Result * Automated Visual Field, Extended - OU - Both Eyes (10/16/2024 3:30 PM EST) Tamiko Wilson, OD - 10/16/2024 3:30 PM EST VISUAL FIELD INTERPRETATION Reason for testing: Optic disc drusen both eyes (OU) - baseline Reliability: OD: _adequate_ (FP: 0% , FN: 0% ); poor fixation control per examiner observation OS: _adequate_ (FP: 0% , FN: 0% ); poor fixation control per examiner observation Statistical Indices: OD: MD: -6.8 dB, PSD: 2.2 dB OS: MD: -2.7 dB, PSD: ??2.7dB Impression: OD: Overall depressed total deviation, deeper inferior than superior; clear pattern deviation with 2 scattered defects temporally. No correlation to OCTs OS: Some shallow defects inferior temporally. No correlation to OCTs Management Plan: Questionable reliability both eyes (OU) due to poor fixation despite excellent false positive/false negative recordings. No significant defects both eyes (OU). Baseline today. Monitor. Tamiko Thorpe OD OPHTH VISUAL FIELD Final Result * OCT, Retina - OU - Both Eyes (10/16/2024 1:00 PM EST) Tamiko Wilson, OD - 10/22/2024 9:14 AM EST OCT [facility] INTERPRETATION Optical Coherence Tomography Interpretation Report Reliability: OD: Poor quality, blink artifact inferior OS: ??Poor quality, blink artifact inferior Measurements: Central subfoveal thickness OD: ??213 microns OS: ??238 microns Test findings: OD: Soft drusen throughout macula, small patches of atrophy superior and inferior to fovea, generally thin macula OS: Soft drusen throughout macula, small patch of atrophy nasal to fovea, borderline thin superior and temporal donnie/parafovea Impression and Plan: Intermediate dry age-related macular degeneration (ARMD) both eyes (OU). Monitor. Tamiko Maurilio OD OPHTH TOMOGRAPHY Final Result * Lipid Panel, Standard (01/12/2024 2:23 PM EDT) Triglycerides 79 <150 mg/dL [facility] Comment:Desirable Triglyceri de: less than 150 mg/dLBorderline High Triglyceride 150-199 mg/dLHigh Triglyceride: 200-499 mg/dLVery High Triglyceride: greater than or equal to 5OO mg/dL Cholesterol 116 <200 mg/dL [facility] Comment:Desirable Cholestero l: less than 200 mg/dLBorderline High Cholesterol: 200-239 mg/dLHigh Cholesterol: greater than 239 mg/dL LDL Cholesterol Calculated 54 <100 mg/dL [facility] Comment:Desirable LDL: less than 100 mg/dLNear Optimal/Above Optimal LDL: 110- 129 mg/dLBorderline High LDL: 130-159 mg/dLHigh LDL: 160-189 mg/dLVery High LDL: greater than or equal to 190 mg/dL HDL Cholesterol 47 >40 mg/dL [facility] Comment:Desirable HDL: great er than 40 mg/dL Note: This HDL assay may give artificially low results in patients with liver disease. Blood Venous blood specimen / Unknown 01/12/2024 2:23 PM EDT 01/12/2024 3:50 PM EDT us Yesenia Nichloas MD LAB BLOOD ORDERABLES Final Result [facility] [address] [place] [phone] from Last 3 Months or Most Recently Relevant to Health Maintenance Insurance [facility] Care Teams Hull Sorter Relationship Specialty Start Date End Date Yesenia Rodriguez MD [address] [place] [address] [id number] PCP - General Family Medicine 05/13/21
--- OUTSIDE RECORDS SUMMARY | 2025-01-04 12:43 | XMS_ITS | Encounter Summary ---
Author Organization [employer] Address [address] [facility] [address] [place] [address] Care Team Providers Care Heavy Lift Rigger Name Role Phone Yesenia Rodriguez MD Primary Care Provide r Encounter Details Date Type Department Care Team ([facility] Contact Info) Description 01/04/2025 Orders Only GENERIC EXTERNAL DATA DEPARTMENT Provider, Generic External Data Social History Tobacco Use Types Packs/Day Years Used Date Smoking Tobacco: Never Passive Smoke Exposure: Never Smokeless Tobacco: Never Alcohol Use Standard Drinks/Week Comments Never 0 [...] problems with any of the following? Lead [place] or [place] 12/11/2024 Food Insecurity Answer Date [...] as of this encounter Plan of Treatment Pending Results Name Type Priority Associated Diagnoses Date /Time Comprehensive Metabolic Panel Lab Routine 01/04/2025 11:35 AM EDT Magnesium Lab Routine 01/04/2025 11: 35 AM EDT documented as of this encounter Procedures Procedure Name Priority Date/Time Associated Diagnosis Comments MAGNESIUM Routine 01/04/2025 11:35 AM EDT COMPREHENSIVE METABOLIC PANEL Routine 01/04/2025 11:35 AM EDT CBC WITH AUTO DIFFERENTIAL Routine 01/04/2025 11:34 AM EDT XR LUMBAR SPINE 2-3 VIEWS Routine 01/04/2025 11:11 AM EDT documented in this encounter Results * (ABNORMAL) CBC auto differential (01/04/2025 11:34 AM EDT) White Blood Count 5.4 4.8 - 10.8 X10*3/uL [facility] Red Blood Count 3.69(L) 4.20 - 5.50 X10*6/uL [facility] Hemoglobin 11.3(L) 12.0 - 16.0 g/dl [facility] Hematocrit 34.7(L) 37.0 - 47.0 % [facility] Mean Corpuscular Volume 94.0 80.0 - 98.0 fL [facility] Mean Corpuscular Hemoglobin 30.6 27.0 - 33.0 pg [facility] Mean Corpuscular HGB Conc 32.6 31.0 - 35.0 g/dl [facility] Red Cell Distribution Width 13.3 11.0 - 16.0 % [facility] Platelet Count 166 160 - 400 X10*3/uL [facility] Mean Platelet Volume 10.5 9.4 - 12.3 fL [facility] Neutrophils Percent Auto 69.1 45 - 73 % [facility] Imm Gran Pct Auto 0.6(H) 0.0 - 0.4 % [facility] Lymphocytes Percent Auto 22.3 20 - 40 % [facility] Monocytes Percent Auto 4.8 2 - 11 % [facility] Eosinophils Percent Auto 2.6 0 - 4 % [facility] Basophils Percent Auto 0.6 0 - 2 % [facility] NRBC Pct Auto 0.0 0.0 - 0.2 /100WBC [facility] Neutrophils Absolute Auto 3.7 2.0 - 8.3 x10*3/uL [facility] Imm Gran Abs Auto 0.03 0.00 - 0.03 X10*3/uL [facility] Lymphocytes Absolute Auto 1.2 1.2 - 4.9 X10*3/uL [facility] Monocytes Absolute Auto 0.3 0.1 - 1.2 X10*3/uL [facility] Eosinophils Absolute Auto 0.1 0.0 - 0.4 X10*3/uL [facility] Basophils Absolute Auto 0.0 0.0 - 0.2 X10*3/uL [facility] NRBC Abs Auto 0.000 0.0 - 0.012 X10*3/uL [facility] 01/04/2025 11:3 4 AM EDT 01/04/2025 11:39 AM EDT us Generic External Data Provider LAB BLOOD ORDERAB LES Final Result [facility] [address] [place] [phone] * XR Lumbar Spine 2-3 Views (01/04/2025 11:11 AM EDT) Anatomical Region Laterality Modality Spine, L-spine Radiographic Mirela ging 01/04/2025 11:1 1 AM EDT Narrative 01/04/2025 12:15 PM EDT ? [facility] ?[address] ?[place] [address] ?XRay Report ? Signed ? Patient: Santo,Tran ?MR#: [id number] ?? 8 ? : 1945 ?Acct:[id number] ? Age/Sex: 79 / F ?ADM Date: 01/04/25 ? Loc: HO.ED ? Attending Dr: ? Ordering Physician: Allie Kong ?? Date of Service: 01/04/25 ?? Procedure(s): XR lumbar spine 2-3V ?? Accession Number(s): [id number] ? cc: Yesenia Rodriguez MD; Allie Kong [...] signed by Francisco Landrum MD in OV> ?01/04/ 1213 ? DD/ 1111 ? TD/TT: // 1155 ? Cooker Chip: ? Procedure Note Donotuseinterpreter, Image - 01/04/[address] [address] XRay Report Signed Patient: Tran SantoMR#: [id number] 8 : 4Acct:[id number] Age/Sex: 79 / FADM Date: 01/04/25 Loc: HO.ED Attending Dr: Ordering Physician: Allie Kong Date of Service: 01/04/25 Procedure(s): XR lumbar spine 2-3V Accession Number(s): [id number] cc: Yesenia Rodriguez MD; Allie Kong EXAMINATION: [...] 01/04/2025 12:13 PM EDT Dictated By: Francisco Landrum MD Signed By: <Electronically signed by Francisco Landrum MD in OV> 01/04/25 1213 DD/ 1111 TD/TT: 01/04/25 1155 Cooker Chip: [facility] External Provider IMG XR PROCEDURES Edited Result - Final documented in this encounter Visit Diagnoses Not on filedocumented in this encounter Additional Health Concerns Assessment Noted Time PHQ-9 Depression Total Score: 0 06/20/20 24 2:33 PM EDT documented as of this encounter Care Teams Heavy Lift Rigger Relationship Specialty Start Date End Date Yesenia Rodriguez MD [address] [place] [address] PCP - General Family Medicine 05/13/21 documented as of this encounter
--- OUTSIDE RECORDS SUMMARY | 2025-01-04 12:44 | XMS_ITS | Clinical Summary ---
Author Organization [facility], Address [address] [place] [address] Phone Care Team Providers Care Tennis Racket Repairer Name Role Phone Gerardo Pereira MD Primary Care Provider [phone] Medications aspirin (ASPIR-LOW) 81 MG EC tablet Comments: Filled Date: Jun 15 2017 12:00AM Patient Notes: TAKE 1 TABLET BY MOUTH ONCE A DAY Duration: 7 Active fluticasone (FLONASE) 50 MCG/ACT nasal spray Comments: Filled Date: May 20 2017 12:00AM Patient Notes: TAKE 1 TO 2 SPRAYS BY INTRANASAL ROUTE EVERY DAY IN EACH NOSTRIL NE EDED Duration: 7 Active levothyroxine (SYNTHROID, LEVOTHROID) 50 MCG tablet Comments: Filled Date: Jun 15 2017 12:00AM Patient Notes: TOME JEN TABLETA POR VIA ORAL TODOS [place] Duration: 7 Active lisinopril (PRINIVIL,ZESTR IL) 5 MG tablet Comments: Filled Date: Jun 22 2017 12:00AM Patient Notes: TAKE 1 TABLET BY MOUTH ONCE A DAY Duration: 7 Active loratadine (CLARITIN) 10 MG tablet Comments: Filled Date: May 20 2017 12:00AM Patient Notes: TAKE 1 TABLET BY ORAL ROUTE EVERY DAY NEEDED Duration: 7 Active metFORMIN (GLUCOPHAGE) 850 MG tablet Comments: Filled Date: Jun 27 2017 12:00AM Patient Notes: TOME JEN TABLETA POR VIA ORAL TODOS [place] Duration: 7 Active rosuvastatin (CRESTOR) 20 MG tablet Comments: Filled Date: Jun 22 2017 12:00AM Patient Notes: TAKE 1 TABLET BY ORAL ROUTE EVERY BEDTIME Duration: 7 Active traMADol (ULTRAM) 50 MG tablet Comments: Filled Date: Jul 16 2017 12:00AM Patient Notes: TAKE 1 TABLET BY MOUTH EVERY 6 HOURS NEEDED FOR PAIN Duration: 3 7 Active zolpidem (AMBIEN) 5 MG tablet Comments: Filled Date: Jun 30 2017 12:00AM Patient Notes: TOME JEN TABLETA POR VIA ORAL TODOS [place] AL ACOSTARSE CUANDO SEA N ECESARIO Duration: 30 7 Active Ventolin HFA 108 (90 Base) MCG/ACT inhaler INHALE DANDO DOS SOPLIDOS POR V A ORAL CADA CUATRO HORAS CUANDO SEA NECESARIO 1 Active Antacid Calcium 500 MG chewable tablet TOME JEN TABLETA DOS VECES AL D A CUANDO SEA NECESARIO 1 Active cholecalciferol (VITAMIN D-3) 50 MCG (2000 UT) capsule TOME JEN C PSULA TODOS LOS D 1 Active cyclobenzaprine (FLEXERIL) 5 MG tablet TOME JEN TABLETA TODOS LOS D AL ACOSTARSE PARA EL ESPASMO MUSCULAR CUANDO SEA NECESARIO 1 Active FREESTYLE LITE test strip USE DOS VECES AL D A 1 Active pantoprazole (PROTONIX) 40 MG EC tablet TOME JEN TABLETA POR V A ORAL DOS VECES AL D A 1 Active Active Problems Problem Noted Date Diagnosed Date Chronic kidney disease stage 2 12/06/2019 Hyperlipidemia 12/06/2019 Hypertensive disorder 12/06/2019 Hypothyroidism 12/06/2019 Renal disorder due to type 2 diabetes mellitus 0 12/06/2019 Type 2 diabetes mellitus 12/06/2019 Resolved Problems Problem Noted Date Diagnosed Date Resolved Date Indigestion 12/06/2019 10/08/2020 Immunizations Immunization Administration Dates Next Due Influenza Split 07/11/2017 Family History Medical History Relation Comments Kidney disease Sibling brother dialysis Relation Status Comments Father Unknown Mother Unknown Sibling Social History Tobacco Use Types Packs/Day Years Used Date Smoking Tobacco: Never Alcohol Use Standard Drinks/Week Comments No 0 (1 standard drink = 0.6 oz pur e alcohol) Comments Unknown Sex and Gender Information Value Date Recorded Sex Assigned at Not on file Legal Sex Female 4:36 PM EST Gender Identity Not on file Sexual Orientation Not on file Last Filed Vital Signs Vital Sign Reading Time Taken Comments Blood Pressure 100/60 06/11/2019 12:00 PM EDT Pulse - - Temperature - - Respiratory Rate - - Oxygen Saturation - - Inhaled Oxygen Concentration - - Weight 52.2 kg (115 lb) 06/11/2019 12:00 PM EDT Height 152.4 cm (5') 06/11/2019 12:00 PM EDT Body Mass Index 22.46 06/11/2019 12:00 PM EDT Plan of Treatment Health Maintenance Due Date Last Done Comments Pneumococcal Vaccine: 50+ Ye ars (2 of 2 - PCV) 11/20/2014 11/20/2013 Diabetes: Hemoglobin A1C 12/06/2019 Diabetes: Ophthalmology Exam 12/06/2019 Diabetes: Pedal Pulse Checked 12/06/2019 Diabetes: Sensory Foot Exam 12/06/2019 Diabetes: Visual Foot Exam 12/06/2019 Influenza Vaccine (Season Ended) 2025 07/11/20 17 Pneumococcal Vaccine: Peds ( 0 to 5 Years) and At-Risk Patients (6 to 49 Years) Discontinued 11/20/2013 Hepatitis B Vaccine Aged Out No longe r eligible based on patient's age to complete this topic Insurance [address] [place] [address] [facility] Care Teams Tennis Racket Repairer Relationship Specialty Start Date End Date Gerardo Pereira MD [address] [place] [address] PCP - General Nephrology 07/28/20
--- OUTSIDE RECORDS SUMMARY | 2025-01-04 12:44 | XMS_ITS | Encounter Summary ---
Author Organization [employer] Address [address] [facility] [address] [place] [address] Care Team Providers Care Commercial Carpenter Name Role Phone Yesenia Rodriguez MD Primary Care Provide r Encounter Details Date Type Department Care Team (Late st Contact Info) Description 05/16/2023 Orders Only [facility] [address] [place], [place] [id number] Kacey Quiroga LPN Social History Tobacco Use Types Packs/Day Years Used Date Smoking Tobacco: Never Passive Smoke Exposure: Never Smokeless Tobacco: Never Depression Answer Date Recorded Patient Health Questionnaire-9 Score 0 01/26/2023 Depression Answer Date Recorded Patient Health Questionnaire-2 [...] documented as of this encounter Care Teams Commercial Carpenter Relationship Specialty Start Date End Date Yesenia Rodriguez MD [address] [place] [address] PCP - General Family Medicine 05/13/21 documented as of this encounter
--- OUTSIDE RECORDS SUMMARY | 2025-01-04 12:44 | XMS_ITS | Encounter Summary ---
Author Organization [employer] Address [address] [place] [address] Care Team Providers Care Cash Person Name Role Phone Yesenia Rodriguez MD Primary Care Provide r Reason for Visit * Reason Onset Date Comments Appointment Request 07/14/2023 Encounter Details Date Type Department Care Team ([facility] Contact Info) Description 07/14/2023 Telephone [facility] [address] [place] [address] Yesenia Rodriguez MD [address] [place] [address] Appointment Request Social History Tobacco Use Types Packs/Day Years Used Date Smoking Tobacco: Never Passive Smoke Exposure: Never Smokeless Tobacco: Never Depression Answer Date Recorded Patient Health Questionnaire-9 Score 0 01/26/2023 Housing Stability Answer Date Recorded What is your housing situation today? I have nicocathy jamil 07/14/[address] you [...] t he electric, gas, oil or water [employer] threatened to shut off services in your [...] encounter Miscellaneous Notes * Telephone Encounter - Ana Julian - 07/14/2023 11:12 AM EDT Tc from Yesenia MAURO requesting follow up appt for pt. Please contact Yesenia [phone] Ext [phone] documented in this encounter Plan of Treatment Not on file documented as of this encounter Visit Diagnoses Not on filedocumented in this encounter Additional Health Concerns Assessment Noted Time PHQ-9 Depression Total Score: 0 01/27/20 23 2:42 PM EDT documented as of this encounter Care Teams Cash Person Relationship Specialty Start Date End Date Yesenia Rodriguez MD [address] [place] [address] PCP - General Family Medicine 05/13/21 documented as of this encounter
[2025-01-04 13:14] LABS: Appearance Urine Clear; Color Urine Yellow; Glucose Urine UA Negative (Negative); Leukocyte Esterase Urine Negative (Negative); Nitrite Urine Negative (Negative); UMIC TRIGGER UACC YES; Urine Blood Negative (Negative); Urine Ketones Negative (Negative); Urine Protein 30 (1+) mg/dL (Neg-Trace)
[2025-01-04 13:16] LABS: Bacteria Urine None Seen (None Seen); Hyaline Casts Urine 0-2 /LPF (0-2); RBC Urine 0-2 /HPF (0-2); Squamous Epithelial Cell Urine 0-2 /HPF (0-2); WBC Urine 0-5 /HPF (0-5)
[2025-01-04] MEDS: Ketorolac Tromethamine 30 MG/ML VIAL IM (13:38)
[2025-01-04] MEDS: predniSONE 20 MG TABLET 40 MG PO (13:38)
[2025-01-04 13:58] VITALS: BP 133/91; PULSE 67; RESP 18; TEMP 36.2; O2SAT 100
[2025-01-04 18:42] LABS: Alkaline Phosphatase 52 U/L (39-117)
== END 2025-01-04 13:58 | disposition home or self-care (01) ==
PROVIDERS: Physician Assistant Medical; Emergency Provider Emergency Medicine Emergency Medical Services; PCP Internal Medicine
DX: M54.16 Radiculopathy, lumbar region (principal); Z79.899 Other long term (current) drug therapy
CPT/HCPCS: 36415; 72100; 80053; 81001; 83735; 85025; 96372; 99283; 99284; J1885

== ENCOUNTER → 2025-01-04 11:11 | Outpatient (BNV) | payer OTHER, SELFPAY | PROVIDERS: Emergency Provider Emergency Medicine Emergency Medical Services; PCP Internal Medicine; Visit Provider Radiology Diagnostic Radiology | DX: M47.816 Spondylosis without myelopathy or radiculopathy, lumbar region (principal) | CPT/HCPCS: 72100 ==

== ENCOUNTER 2025-01-30 | Outpatient (REF) | payer OTHER, SELFPAY | END 2025-01-30 00:01 | disposition home or self-care (01) | LOC: CF | PROVIDERS: Visit Provider Nurse Practitioner | DX: M54.50 Low back pain, unspecified (principal); G89.29 Other chronic pain; K22.10 Ulcer of esophagus without bleeding; R14.0 Abdominal distension (gaseous); D12.6 Benign neoplasm of colon, unspecified; Z53.20 Procedure and treatment not carried out because of patient's decision for unspecified reasons | CPT/HCPCS: 99212 ==

== ENCOUNTER 2025-01-30 15:52 | Outpatient (AMB) | payer OTHER, SELFPAY ==
--- NOTE | 2025-01-30 15:54 | A.OFFVIS_ITS ---
Vital Signs 01/30/25 15:56 Height 5 ft Weight 94 lb 12.78 oz BMI 18.5 BP 127/63 Blood Pressure Location Lt brachial Position Sitting Pulse 83 Intake Visit Reasons: F/U MEDS Intake Note: Tran presents in the office as a follow up. CC: lower back pains, constipation. Denies all other GI concerns. Curtain Cutter Hand Required: Yes Allergies No Known Allergies Allergy (Verified 01/30/25 15:57) HPI HPI F/U MEDS: Details: Assessment & Plan (1) Erosive esophagitis: Code(s): K22.10 - Ulcer of esophagus without bleeding Plan: [place] #[id number] She continues to do well. She continues to do well with her medications; protonix and simethicone. She is satisfied with her GI regimen. She declines scope r/t her bradycardia after her last in 2018;? and has done Cologuard recently with her PCP. ROV 6 mos. (2) Abdominal bloating: Code(s): R14.0 - Abdominal distension (gaseous) (3) Tubular adenoma of colon: Comment: She declines scope r/t her bradycardia after her last in 2018;2018 colonoscopy was clear repeat in 5 years Code(s): D12.6 - Benign neoplasm of colon, unspecified (4) Colon cancer screening declined: Comment: She declines scope r/t her bradycardia after her last in 2018; Code(s): Z53.20 - Procedure and treatment not carried out because of patient's decision for unspecified reasons Medications: Changed From simethicone after meals 180 mg PO QID 30 days 120 caps 6RF R14.0 - Abdominal distension (gaseous) To simethicone after meals 180 mg PO QID 90 days 360 caps 1RF R14.0 - Abdominal distension (gaseous) Refilled pantoprazole 40 mg PO BID 180 tabs 1RF K22.10 - Ulcer of esophagus without bleeding TODAY'S VISIT [place] #[id number] Gutierrez Patient has been lost to follow-up since 04/27/2023 She continues to do well. She continues on her pantoprazole twice a day with good control of her GERD but she has run out of her simethicone and would like it renewed. She has no new health problems to report. ROV 6 mos. PFSH Medical History Gastritis Arthritis Sciatica Osteopenia Diabetes Surgical History H/O: hysterectomy Hx of colonoscopy History of esophagogastroduodenoscopy (EGD) Family History Father No problems noted. Mother Diabetes Daughter Ovarian cancer Social History Household Members: Spouse Alcohol intake: never Current occupational status: retired Review of Systems Const Denies fatigue, Denies fever(s), Denies night sweats, Denies poor appetite and Denies weight loss ENT Reports Normal hearing present, Denies dental pain, Denies dysphagia, Denies hearing loss, Denies mouth pain, Denies odynophagia, Denies throat swelling, Denies tongue swelling and Reports other (Dentition adequate) Card Reports no additional complaints Resp Reports no additional complaints GI Details: Denies abdominal pain, Denies melena, Reports bloating, Denies hematochezia, Denies constipation, Denies GI cramping, Denies dysphagia, Denies excessive flatus, Denies early satiety, Reports heartburn, Denies diarrhea, Denies nausea, Denies odynophagia, Denies vomiting and Denies hematemesis Skin/Breast Denies pruritus, Denies lesions, Denies rash and Denies jaundice Neuro Reports Normal hearing present and Denies Abnormal speech present Endo Denies fatigue Aller/Immun Denies throat swelling and Denies tongue swelling Physical Exam Vital Signs: Last Vital Signs Pulse 83 01/30/25 15:56 BP 127/63 01/30/25 15:56 BMI result Body Mass Index 18.5 Const General: cooperative, no acute distress, well developed and well groomed Nutritional Appearance: average body habitus and well nourished Orientation/consciousness: oriented to person, oriented to place and oriented to time Limitations: language barrier HEENT Head: Yes normocephalic and Yes atraumatic Eyes General: appearance normal, both eyes and all related structures Pupils: Equal, round and reactive pupils present Neck Neck: Yes normal visual inspection and Yes no lymphadenopathy Thyroid: Thyroid normal Resp Effort & Inspection: normal respiratory effort and able to speak in complete sentences Auscultation: clear to auscultation bilaterally Cardio Rate: regular rate Rhythm: regular rhythm Heart sounds: Normal, physiologic split S2 sound present Peripheral pulses: radial pulses present and posterior tibial pulses present GI Inspection: No distended and No Abdominal panniculus present Palpation (GI): Soft to palpation, nontender, no guarding, not rigid and No hepatosplenomegaly present Percussion: Yes normal to percussion Auscultation: normal bowel sounds Rectal Exam - Female: deferred Skin General skin exam: no rashes or lesions noted, turgor normal, skin not dry, no jaundice, No spider nevi and no striae Rashes: no rashes Nails: normal Neuro General: oriented to person, oriented to place and oriented to time Cranial nerves: Yes Equal, round and reactive pupils present and Yes Normal hearing present Speech: No Abnormal speech present Extrem General: Yes normal to inspection, No clubbing, No cyanosis and No edema Psych Appearance: grossly normal and well kempt Mental Status: mental status grossly normal Speech and movement: Normal speech and movement present Affect: normal affect Attitude: cooperative Thought process: Normal thought process present and not confabulating Thought content: Normal thought content present Insight: Fair insight present (Psych) Judgement: Fair judgement present (Psych) Assessment & Plan Assessment & Plan (1) Erosive esophagitis: Code(s): K22.10 - Ulcer of esophagus without bleeding Category: Medical (2) Abdominal bloating: Code(s): R14.0 - Abdominal distension (gaseous) Category: Medical Plan [place] #[id number] Gutierrez Patient has been lost to follow-up since 04/27/2023 She continues to do well. She continues on her pantoprazole twice a day with good control of her GERD but she has run out of her simethicone and would like it renewed. She has no new health problems to report. ROV 6 mos. Medications: Refilled simethicone after meals 180 mg PO QID 360 caps 1RF 90 days R14.0 - Abdominal distension (gaseous) pantoprazole 40 mg PO BID 180 tabs 1RF K22.10 - Ulcer of esophagus without bleeding Coding Level of Care Code Est Pt Level 3 (92141) Diagnoses Erosive esophagitis K22.10 Abdominal bloating R14.0
--- OUTSIDE RECORDS SUMMARY | 2025-01-30 15:54 | XMS_ITS | Encounter Summary ---
Author Organization [facility], Address [address] [place] [address] Phone Care Team Providers Care Top Dyeing Machine Tender Name Role Phone Gerardo Pereira MD Primary Care Provider [phone] Encounter Details Date Type Department Care Team (Late st Contact Info) Description 06/11/2020 Orders Only [facility] [address] [place] [phone] Chronic kidney disease stage 3 (HCC); Chronic [...] (HCC) documented in this encounter Care Teams Top Dyeing Machine Tender Relationship Specialty Start Date End Date Gerardo Pereira MD [address] [place] [address] PCP - General Nephrology 07/28/20 documented as of this encounter
--- OUTSIDE RECORDS SUMMARY | 2025-01-30 15:54 | XMS_ITS | Clinical Summary ---
Author Organization [facility], Address [address] [place] [address] Phone Care Team Providers Care Portfolio Lead Name Role Phone Gerardo Pereira MD Primary Care Provider [phone] Medications aspirin (ASPIR-LOW) 81 MG EC tablet [...] complete this topic Insurance [address] [place] [address] [facility] Care Teams Portfolio Lead Relationship Specialty Start Date End Date Gerardo Pereira MD [address] [place] [address] PCP - General Nephrology 07/28/20
[2025-01-30 15:56] VITALS: BP 127/63; PULSE 83; BMI 18.5
== END 2025-01-30 16:22 | disposition home or self-care (01) ==
LOC: HO.HGI 15:52
PROVIDERS: PCP Internal Medicine; Visit Provider Nurse Practitioner
DX: K22.10 Ulcer of esophagus without bleeding (principal); R14.0 Abdominal distension (gaseous)
CPT/HCPCS: 99213

== ENCOUNTER 2025-02-24 10:11 | Outpatient (REF) | payer OTHER, SELFPAY ==
--- NOTE | ~2025-02-24 | MR_ITS ---
CLINICAL HISTORY: persistent worsening pain MR lumbar spine with and without gadolinium Comparison: OT - MR LUMBAR SPINE WO CON - 02/24/25 10:45 EDT CR/WY/SR - XR LUMBAR SPINE 2-3V - 01/04/25 11:54 EDT Findings: 5 lumbar type vertebral bodies are present by plain film. 3 mm of anterolisthesis of L4 on L5. No acute fracture or pathologic bone lesion. Moderate reactive signal within the endplates adjacent to the T10-T11, T11-T12, and T12-L1 intervertebral disc. Mild reactive signal adjacent to the remaining lumbar endplates. Cauda equina and conus medullaris within normal limits. Paraspinous musculature intact. No paraspinous masses. L1-L2: Moderate disc desiccation. Mild facet and ligamentum flavum hypertrophy. Mild canal stenosis. No foraminal stenosis. L2-L3:Moderate disc height loss and desiccation. Mild diffuse disc bulge. Mild facet and ligamentum flavum hypertrophy. Mild canal stenosis. Mild bilateral foraminal stenosis. L3-L4:Severe disc height loss and desiccation. Mild diffuse disc bulge. Mild facet and ligamentum flavum hypertrophy. Mild canal stenosis. Mild bilateral foraminal stenosis. L4-L5: Moderate disc desiccation. Mild diffuse disc bulge. Mild facet and ligamentum flavum hypertrophy. Mild canal stenosis. Mild bilateral foraminal stenosis. L5-S1:Mild disc desiccation and diffuse disc bulge. Mild bilateral facet hypertrophy. No significant canal or foraminal stenosis. IMPRESSION: 1. Multilevel degenerative disc and facet disease, as well as ligamentum flavum hypertrophy. 2. Mild multilevel canal and foraminal stenoses. No neural impingement. This document has been electronically signed by: Julianne Hung MD on 02/25/2025 15:44:33
--- OUTSIDE RECORDS SUMMARY | 2025-02-24 10:13 | XMS_ITS | Clinical Summary ---
Author Organization [employer] Address [address] [facility] [address] [place] [address] Care Team Providers Care Clerical Warehouseman Name Role Phone Yesenia Rodriguez MD Primary Care Provide r Allergies No known active allergies Medications Blood Glucose Monitoring Suppl (FreeStyle Lite) w/Device kitIndications:T ype 2 diabetes mellitus without complication, without long-term current use of insulin (CMS/[facility]) 1 kit 2 times daily. 1 kit 06/08/20 23 Active Blood Glucose Monitoring Suppl (ONE TOUCH ULTRA 2) w/Device kit Use to check BS 2x daily 1 kit 07/14/20 23 Active OneTouch Delica Lancets 33G misc Use to check BS 2x daily 100 each 11 07/14/20 23 Active cholecalciferol VITAMIN D (Vitamin D-3) 50 MCG (1999 UT) capsule TAKE 1 CAPSULE BY MOUTH EVERY [...] DAY 90 tablet 1 12/11/19 25 Active metFORMIN (Glucophage) 500 MG tabletIndication s:Type 2 diabetes mellitus without complication, without long-term current use of insulin (CMS/HCC) TAKE 1 TABLET BY MOUTH WITH BREAKFAST AND EVENING MEAL 180 tablet 3 01/09/20 25 Active zolpidem (Ambien) 5 MG tabletIndication s:Primary insomnia TOME 1 TABLETA POR VIA ORAL TODOS [place] [facility] SE[place] NECESAR[place] PARA DORMIR 30 tablet 02/16/20 25 Active zolpidem (Ambien) 5 MG tabletIndication s:Primary insomnia TOME 1 TABLETA POR VIA ORAL TODOS [place] ACOSTARSE CU[place] SEA NECESARIO PARA DORMIR 30 tablet 01/10/20 25 025 Discontinued ibuprofen 800 MG tabletIndication s:Chronic bilateral low back pain without sciatica Take 1 tablet (800 mg) by mouth every 8 (eight) hours if needed for mild pain for up to 20 days. 30 tablet 1 01/11/20 25 025 Active Problems Problem Noted Date Diagnosed Date Chronic bilateral low back pain without sciatica 01/10/2025 Assessment & Plan (01/10/2025 4:38 PM EDT): Advised to apply heat on affected area I will prescribe the patient ibuprofen 800 mg 8 hours with full stomach as needed and Flexeril 5 mg every 8 hours I did review advised with patient side effects of the medication I will order MRI of her back and refer patient to physical therapy I will follow-up with her in 2 months Chronic right-sided low back pain with right-jonas [...] Encounters Date Type Department Care Team Description 02/24/2025 Refill [facility] [address] [place] [address] Yesenia Rodriguez MD 02/15/2025 Refill [facility] [address] [place] [address] Yesenia Rodriguez MD Primary insomnia 01/10/2025 3:30 PM EDT Office Visit [facility] [address], [place] [phone] Yesenia Rodriguez MD Type 2 diabetes mellitus without complication, without long-term current use of insulin (CMS/HCC); Chronic bilateral low back pain without sciatica 01/09/2025 Telephone [facility] [address] [place] [phone] Yesenia Rodriguez MD Chart Prep 01/08/2025 Refill [facility] [address] [place] [phone] Yesenia Rodriguez MD Primary insomnia 01/06/2025 Refill [facility] [address] [place] [phone] Yesenia Rodriguez MD Type 2 diabetes mellitus without complication, without long-term current use of insulin (CMS/HCC) 01/04/[address] [address] Alejandra Umana RN 01/04/2025 Orders Only GENERIC EXTERNAL DATA DEPARTMENT Provider, Generic External Data 12/20/2024 1:45 PM EDT Office Visit [address] [address] Yesenia Rodriguez MD Chronic right-sided low back pain with right-sided sciatica (Primary Dx); Type 2 diabetes mellitus without complication, without long-term current use of insulin (CMS/HCC); Primary hypertension 12/20/2024 Travel 12/12/2024 Refill [facility] [address] [place] [phone] Yesenia Rodriguez MD Primary insomnia 12/11/2024 Patient Outreach [facility] [address] [place] [address] [phone] Yesenia Rodriguez MD Care Coordination ([facility] outreach for SDOH-patient declined to participate ) 12/11/2024 Patient Outreach [facility] [address] [place] [address] [phone] Yesenia Rodriguez MD Pre-visit Planning (SDOH screening positive and tobacco screening negative) 12/09/2024 Refill [facility] [address] [place] [address] [phone] Yesenia Rodriguez MD from Last 3 Months Immunizations Immunization Administration Dates Next Due Hep B, adult [...] problems with any of the following? Lead [place] or [place] 12/11/2024 Food Insecurity Answer Date [...] Sign Reading Time Taken Comments Blood Pressure 126/70 01/10/2025 3:50 PM EDT Pulse 80 01/10/2025 3:50 PM EDT Temperature 36.2 ??C (97.1 ??F) 01/10/2025 3:50 PM ED T Respiratory Rate 19 01/10/2025 3:50 PM EDT Oxygen Saturation 98% 01/10/2025 3:50 PM EDT Inhaled Oxygen Concentration - - Weight 44.2 kg (97 lb 6 oz) 01/10/2025 3:50 PM E DT Height 152.4 cm (5') 01/10/2025 3:50 PM EDT Body Mass Index 19.02 01/10/2025 3:50 PM EDT Plan of Treatment Upcoming Encounters Date Type Department Care Team (Late st Contact Info) Description 03/21/2025 1:45 PM EDT Office Visit [facility] [address] [place] [address] Yesenia Rodriguez MD [address] [place] [address] 04/26/2025 1:00 PM EDT Office Visit [facility] [address] [place] [address] Tamiko Thorpe, OD [address] [place] [address] Health Maintenance Due Date Last Done Comments Hepatitis A Vaccines (1 of 2 - Risk 2-dose series) 1964 Zoster Vaccines (2 of 3) 04/04/2014 02/07/2014 RSV Patients and Patients Aged 60 years or older (1 - 1-dose 75+ series) 2019 DTaP/Tdap/Td Vaccines (2 - Td or Tdap) 05/29/2022 05/29/2012 Diabetes: Foot Exam 01/27/2024 01/26/2023, COVID-19 Vaccine ( season) 2024 09/21/2021, 12/15/2020 Lipid Panel 01/11/2025 01/12/2024, 01/17, 03/30/2022, Additional history exists Depression Screening 06/20/2025 06/20/2024, 06/20/20 Diabetes: Hemoglobin A1C 06/21/2025 025, 06/20/2024, 01/12/2024, Additional history exists SDOH Screening 12/11/2025 12/11/2024 Alcohol/Substance Use Screening 01/10/2026 01/10/2025 Tobacco Screening 01/10/2026 01/10/2025 Eye Exam 10/16/2026 10/16/2024, 09/20, 10/16/2024, Additional [...] patient's age to complete this topic Meningococcal B Vaccine Aged Out No l onger eligible based on patient's age to complete [...] Procedure Name Priority Date/Time Associated Diagnosis Comments POCT GLUCOSE Routine 01/10/2025 3:52 PM EDT Type 2 diabetes mellitus without complication, without long-term current use of insulin ([facility]) URINALYSIS, COMPLETE, WITH REFLEX TO CULTURE Routine 01/04/2025 1:08 PM EDT MAGNESIUM Routine 01/04/2025 11:35 AM EDT COMPREHENSIVE METABOLIC PANEL Routine 01/04/2025 11:35 AM EDT CBC WITH AUTO DIFFERENTIAL Routine 01/04/2025 11:34 AM EDT XR LUMBAR SPINE 2-3 VIEWS Routine 01/04/2025 11:11 AM EDT POCT GLYCATED HEMOGLOBIN, TOTAL Routine 12/20/2024 1:26 PM EDT Type 2 diabetes mellitus without complication, without long-term current use of insulin ([facility]) POCT GLUCOSE Routine 12/20/2024 1:25 PM EDT Type 2 diabetes mellitus without complication, without long-term current use of insulin ([facility]) LIPID PANEL, STANDARD Routine 01/12/2024 2:23 PM EDT Encounter for preventive care from Last 3 Months or Most Recently Relevant to Health Maintenance Results * POCT Glucose (01/10/2025 3:52 PM EDT) Only the most recent of2 resultswithin the time period is included. Glucose Blood, POC 133 60 - 200 mg/dL QC Media Lot # [id number] Lot# Expiration Date Blood Capillary blood specimen / Unknown 01/10/2025 3:52 PM EDT Yesenia Nicholas MD POINT OF CARE TEST EN TER/EDIT ORDERABLES Final Result * (ABNORMAL) Urinalysis, Complete, with Reflex to Culture (01/04/2025 1:08 PM EDT) Color Urine Yellow [facility] Appearance Urine Clear [facility] PH 8.0 5.0 - 9.0 [facility] Glucose Urine UA Negative Negative mg/dL [facility] Urine Blood Negative Negative [facility] Specific Alloy - Urine 1.020 1.005 - 1.025 [facility] Urine Protein 30 (1+)(A) Neg-Trace mg/dL [facility] Urine Ketones Negative Negative mg/dL [facility] Nitrite Urine Negative Negative [facility] Leukocyte Esterase Urine Negative Negative [facility] RBC Urine 0-2 0 - 2 /HPF [facility] Urine WBC 0-5 0 - 5 /HPF [facility] Urine Squamous Epithelial Cell 0-2 0 - 2 /HPF [facility] Urine Bacteria None Seen None Seen [facility] Hyaline Casts, Urine 0-2 0 - 2 /LPF [facility] 01/04/2025 1:08 PM EDT 01/04/2025 1:08 PM EDT Narrative [facility] - 01/04/2025 1:19 PM EDT Urine, Clean Catch us Generic External Data Provider LAB URINE ORDERAB LES Final Result Performing Organization Address [facility] de Phone Number [facility] [address] [place] [address] [phone] * Magnesium (01/04/2025 11:35 AM EDT) Magnesium 2.1 1.6 - 2.6 mg/dL [facility] 01/04/2025 11:3 5 AM EDT 01/04/2025 11:39 AM EDT us Generic External Data Provider LAB BLOOD ORDERAB LES Final Result Performing Organization Address [facility] Co de Phone Number [facility] [address] [place] [address] [phone] * (ABNORMAL) Comprehensive Metabolic Panel (01/04/2025 11:35 AM EDT) Sodium 144 135 - 145 mmol/L [facility] Potassium 4.6 3.3 - 5.1 mmol/L [facility] Chloride 111(H) 96 - 108 mmol/L [facility] Carbon Dioxide 28 22 - 29 mmol/L [facility] Anion Gap 10(L) 12 - 20 [facility] Urea Nitrogen (BUN) 16 9 - 16 mg/dL [facility] Creatinine, Serum 0.76 0.5 - 1.4 mg/dL [facility] Creatinine Clr Calc Pharmacy 41.6 [facility] Comment:Provided height and weight: 152.4 cm,44.6 kg.eGFR (calculated from the MDRD study equation) and eCrCl(calculated from the Cockcroft-Gault equation) are based ondifferent parameters and may not yield comparable results.If eCrCl result is absurd, please check patient'sheight/weight. Estimated Glomerular Filt Rate >60 [facility] Comment:Chronic Kidney Disea se: Estimated GFR < 60 mL/min/1.10r9Osobes Kidney Disease: Estimated GFR < 15 mL/min/1.73m2 Glucose 100 60 - 115 mg/dL [facility] Calcium 9.1 8.4 - 10.2 mg/dL [facility] Bilirubin, Total 0.3 0.0 - 1.0 mg/dL [facility] Aspartate Amino Transferase 30 5 - 31 U/L [facility] Alanine Aminotransferase 19 0 - 31 U/L [facility] Total Protein 6.5 6.5 - 8.0 g/dL [facility] Albumin Level 3.8 3.5 - 5.0 g/dL [facility] Alkaline Phosphatase 52 39 - 117 U/L [facility] 01/04/2025 11:3 5 AM EDT 01/04/2025 11:39 AM EDT us Generic External Data Provider LAB BLOOD ORDERAB LES Final Result [facility] [address] [place] [address] [phone] * (ABNORMAL) CBC auto differential (01/04/2025 11:34 AM EDT) White Blood Count 5.4 4.8 - 10.8 X10*3/uL [facility] Red Blood Count 3.69(L) 4.20 - 5.50 X10*6/uL [facility] Hemoglobin 11.3(L) 12.0 - 16.0 g/dl [facility] Hematocrit 34.7(L) 37.0 - 47.0 % [facility] Mean Corpuscular Volume 94.0 80.0 - 98.0 fL [facility] Mean Corpuscular Hemoglobin 30.6 27.0 - 33.0 pg [facility] Mean Corpuscular HGB Conc 32.6 31.0 - 35.0 g/dl [facility] Red Cell Distribution Width 13.3 11.0 - 16.0 % [facility] Platelet Count 166 160 - 400 X10*3/uL [facility] Mean Platelet Volume 10.5 9.4 - 12.3 fL [facility] Neutrophils Percent Auto 69.1 45 - 73 % [facility] Imm Gran Pct Auto 0.6(H) 0.0 - 0.4 % [facility] Lymphocytes Percent Auto 22.3 20 - 40 % [facility] Monocytes Percent Auto 4.8 2 - 11 % [facility] Eosinophils Percent Auto 2.6 0 - 4 % [facility] Basophils Percent Auto 0.6 0 - 2 % [facility] NRBC Pct Auto 0.0 0.0 - 0.2 /100WBC [facility] Neutrophils Absolute Auto 3.7 2.0 - 8.3 x10*3/uL [facility] Imm Gran Abs Auto 0.03 0.00 - 0.03 X10*3/uL [facility] Lymphocytes Absolute Auto 1.2 1.2 - 4.9 X10*3/uL [facility] Monocytes Absolute Auto 0.3 0.1 - 1.2 X10*3/uL [facility] Eosinophils Absolute Auto 0.1 0.0 - 0.4 X10*3/uL [facility] Basophils Absolute Auto 0.0 0.0 - 0.2 X10*3/uL [facility] NRBC Abs Auto 0.000 0.0 - 0.012 X10*3/uL [facility] 01/04/2025 11:3 4 AM EDT 01/04/2025 11:39 AM EDT us Generic External Data Provider LAB BLOOD ORDERAB LES Final Result [facility] [address] [place] [address] [phone] * XR Lumbar Spine 2-3 Views (01/04/2025 11:11 AM EDT) Anatomical Region Laterality Modality Spine, L-spine Radiographic Mirela ging 01/04/2025 11:1 1 AM EDT Narrative 01/04/2025 12:15 PM EDT ? [facility] ?[address] ?[place] [address] ?XRay Report ? Signed ? Patient: Santo,Tran ?MR#: [id number] ?? 8 ? : 1945 ?Acct:[id number] ? Age/Sex: 79 / F ?ADM Date: 04/18/25 ? Loc: HO.ED ? Attending Dr: ? Ordering Physician: Allie Kong ?? Date of Service: 01/04/25 ?? Procedure(s): XR lumbar spine 2-3V ?? Accession Number(s): [id number] ? cc: Yesenia Rodriguez MD; Allie Kong [...] DD/ 1111 ? TD/TT: 01/04/25 1155 ? Intrusion Analyst: ? Procedure Note Nneka, Marie - 01/04/2025 [place] [address] XRay Report Signed Patient: Tran SantoMR#: [id number] 8 : 4Acct:[id number] Age/Sex: 79 / FADM Date: 01/04/25 Loc: HO.ED Attending Dr: Ordering Physician: Allie Kong Date of Service: 01/04/25 Procedure(s): XR lumbar spine 2-3V Accession Number(s): [id number] cc: Yesenia Rodriguez MD; Allie Kong EXAMINATION: [...] 01/04/25 1213 DD/ 1111 TD/TT: 01/04/25 1155 Intrusion Analyst: [facility] External Provider IMG XR PROCEDURES Edited Result - Final * (ABNORMAL) POCT HGB A1C (12/20/2024 1:26 PM EDT) Pathologist [facility] Hemoglobin A1C 6.1(A) 4.0 - 6.0 % QC Media Lot # [id number] Lot# Expiration Date 444 Blood 12/20/2024 1:26 PM EDT Yesenia Nicholas MD POINT OF CARE TEST EN TER/EDIT ORDERABLES Final Result * Lipid Panel, Standard (01/12/2024 2:23 PM EDT) Triglycerides 79 <150 mg/dL [facility] Comment:Desirable Triglyceri de: less than 150 mg/dLBorderline High Triglyceride 150-199 mg/dLHigh Triglyceride: 200-499 mg/dLVery High Triglyceride: greater than or equal to 5OO mg/dL Cholesterol 116 <200 mg/dL [facility] Comment:Desirable Cholestero l: less than 200 mg/dLBorderline High Cholesterol: 200-239 mg/dLHigh Cholesterol: greater than 239 mg/dL LDL Cholesterol Calculated 54 <100 mg/dL [facility] Comment:Desirable LDL: less than 100 mg/dLNear Optimal/Above Optimal LDL: 110- 129 mg/dLBorderline High LDL: 130-159 mg/dLHigh LDL: 160-189 mg/dLVery High LDL: greater than or equal to 190 mg/dL HDL Cholesterol 47 >40 mg/dL [facility] Comment:Desirable HDL: great er than 40 mg/dL Note: This HDL assay may give artificially low results in patients with liver disease. Blood Venous blood specimen / Unknown 01/12/2024 2:23 PM EDT 01/12/2024 3:50 PM EDT Yesenia Nicholas MD LAB BLOOD ORDERABLES Final Result [facility] [address] [place] [address] [phone] from Last 3 Months or Most Recently Relevant to Health Maintenance Insurance [facility] [employer] [facility] [employer] (O D-SNP) DANIEL PIKE [id number] Care Teams Clerical Warehouseman Relationship Specialty Start Date End Date Yesenia Rodriguez MD [address] [place] [phone] PCP - General Family Medicine 05/13/21
== END 2025-02-24 10:12 | disposition home or self-care (01) ==
LOC: HO.MRI 10:11
PROVIDERS: PCP Internal Medicine; Visit Provider Internal Medicine
DX: M54.50 Low back pain, unspecified (principal); G89.29 Other chronic pain
CPT/HCPCS: 72148

== ENCOUNTER → 2025-02-24 10:21 | Outpatient (BNV) | payer OTHER, SELFPAY | PROVIDERS: PCP Internal Medicine; Visit Provider Radiology Diagnostic Radiology | DX: M51.369 Other intervertebral disc degeneration, lumbar region without mention of lumbar back pain or lower extremity pain (principal) | CPT/HCPCS: 72148 ==

== ENCOUNTER 2025-08-16 10:33 | Emergency (ER) | payer OTHER, SELFPAY ==
--- NOTE | ~2025-08-16 | XR_ITS ---
EXAMINATION: XR SHOULDER 2 OR MORE VIEWS RIGHT HISTORY: shoulder pain COMPARISON: Comparison is made with the prior examination dated 07/20/2017. FINDINGS: Three views of the right shoulder are submitted. Osseous mineralization is normal. There is no fracture or dislocation. The glenohumeral joint is maintained. There is mild osteoarthritis of the AC joint. The soft tissues are unremarkable. XR/XR shoulder RT min 2V IMPRESSION: Mild osteoarthritis of the AC joint. Electronically signed by: Dillon Ruelas MD 08/16/2025 11:07 AM [facility]
[2025-08-16 10:52] VITALS: BP 155/70; PULSE 86; RESP 16; TEMP 37.2; O2SAT 97; BMI 17.4
--- NOTE | 2025-08-16 10:52 | ED_ITS ---
HPI - General Adult General Chief complaint: Extremity Injury, Upper Stated complaint: severe right shoulder pain and back pain Time Seen by Provider: 08/16/25 11:07 History of Present Illness ED Provider: alissa WHITMORE narrative: Author / Clinician: Richar Ayala MD (Emergency Medicine) Chief Complaint Left hip pain after fall from lift chair yesterday. History of Present Illness Francisco presents to the ED accompanied by Tanja for evaluation of worsening left hip pain after a fall yesterday. The patient states that while being transferred via his lift chair, he was accidentally dropped, landing directly on his buttocks from seat level height. He was subsequently assisted into the house and was able to sleep in his bed overnight. The patient also notes difficulty accessing the porch due to mobility limitations and lack of assistance, which may impact his ability to safely enter and exit his home. Today he reports: - Marked increase in baseline left hip pain and pain in the left leg compared to usual. - Greater stiffness of the left hip compared with usual. - Inability to lift the left leg (he notes he is generally unable to lift it on normal days, but today pain is worse). - No other areas of pain or obvious injury reported. History is notable for a prior left hip fracture with initial surgery approximately 8?10 months ago, followed by a revision surgery. Approximately 2? weeks ago he underwent screw fixation of the left hip. He denies additional trauma aside from yesterday?s fall. Review of Systems Musculoskeletal: Positive for increased left hip pain, stiffness, and limited mobility. Neurological: Endorses intact sensation in the left lower extremity; able to wiggle toes. All other systems not discussed. Physical Exam: - Tenderness over the left hip region. - Limited range of motion of the left hip due to pain. - Distal neurovascular function of the left lower extremity intact (patient able to wiggle toes; sensation present to light touch). Emergency Department Course Bedside examination as above. Radiographic imaging of the left hip ordered (awaiting results). Assessment & Plan Diagnosis: Acute exacerbation of chronic left hip pain following low-height fall (status- post left hip fracture with recent hardware revision). Plan: - Left hip X-ray ordered to evaluate for new fracture or hardware complication. - Continue monitoring while in ED; further management pending imaging results. Disposition Patient remains in the Emergency Department pending imaging and further evaluation. Related Data Home Medications ?Medication ?Instructions ?Recorded ?Confirmed cholecalciferol (vitamin D3) 50 50 mcg PO DAILY mcg (2,000 unit) capsule levothyroxine 50 mcg tablet 50 mcg PO DAILY 11/06/20 lisinopril 5 mg tablet 5 mg PO DAILY 11/06/20 rosuvastatin 20 mg tablet 20 mg PO BEDTIME 11/06/20 tramadol 50 mg tablet 50 mg PO Q6H PRN 11/06/20 zolpidem 5 mg tablet 5 mg PO BEDTIME PRN 11/06/20 aspirin 81 mg tablet,delayed 81 mg PO DAILY 10/27/22 release blood sugar diagnostic (FreeStyle #10 ea 10/27/22 Lite Strips) lancets 28 gauge (FreeStyle #100 ea 10/27/22 Lancets) cyanocobalamin (vitamin B-12) 1,000 mcg PO DAILY 04/27 1,000 mcg tablet (Vitamin B-12) metformin 500 mg tablet 500 mg PO BID 01/30/25 vit C 250 mg-vit E 90 mg-zinc 40 1 cap PO BID 01/30/25 mg-copper 1 [id number]-rvlegl capsule (PreserVision AREDS-2) Previous Rx's ?Medication ?Instructions ?Recorded ondansetron 4 mg disintegrating 4 mg PO Q8H PRN nausea and 09/19/20 tablet vomiting #20 tabs cyclobenzaprine 5 mg tablet 5 mg PO BEDTIME PRN muscle spasm 01/09/21 #7 tabs pantoprazole 40 mg tablet,delayed 40 mg PO BID #180 ta bs 01/30/25 release simethicone 180 mg capsule 180 mg PO QID 90 days #360 caps 01/30/25 cyclobenzaprine 5 mg tablet 5 mg PO TID PRN muscle spa sm 7 08/16/25 days #21 tabs methocarbamol 500 mg tablet 500 mg PO TID #7 tabs 07/21 05/13 Allergies Allergy/AdvReac Type Severity Reaction Status Date / Time No Known Allergies Allergy Verified 08/16/25 10:52 [facility] Past Medical History Medical History Gastritis Arthritis Sciatica Osteopenia Diabetes Surgical History H/O: hysterectomy Hx of colonoscopy History of esophagogastroduodenoscopy (EGD) Family History Family History Father No problems noted. Mother Diabetes Daughter Ovarian cancer Social History Social History Household Members: Spouse Alcohol intake: never Smoked in Last 30 Days: No Advance Directives: No Advance Directives Information Provided: No Current occupational status: retired Physical Exam ED Exam Exam: EXAM: Gen: Alert, awake, well appearing, well hydrated. Head: Atraumatic Eyes: Anicteric, Normal conjunctiva. ENT: Moist mucosa, no pallor. ? Respiratory: Breathing comfortably, No distress.Clear to auscultation bilaterally, symmetric chest expansion, No wheeze, rales, ronchi. Cardiovascular: Regular rate and rhythm. No murmurs or rub. Well perfused periphery, warm extremities. No edema. ? Abdominal: No focal tenderness. Soft, no objective distension. No palpable masses or obvious organomegaly. ?No guarding, no rebound tenderness or other peritoneal findings. MSK: Tender trapezius as above noted Vital signs: See flowsheet Vital Signs: Vital Signs - 24 hr 08/16/25 10:52 08/16/25 11:08 08/16/25 12:17 Temperature 98.9 F 98.7 F Pulse Rate 86 81 81 Respiratory Rate 16 18 18 Blood Pressure 155/70 H 124/64 124/64 Pulse Oximetry 97 100 100 Oxygen Delivery Method Room Air Room Air Room Air BMI result Body Mass Index 17.4 Course Course Course Narrative: Rapid medical examination performed in triage by Paola Monsalve PA-C: Patient is an 80 year old assigned female at presenting to the emergency department with severe right sided back and shoulder pain that started suddenly without any movement. Detailed physical exam and review of systems are deferred to the bleach boiler packer. EKG, labs, and imaging ordered. Patient placed back in the waiting room pending room availability and results. Medications Administered Discontinued Medications Generic Name Dose Route Start Last Admin Trade Name Freq PRN Reason Stop Dose Admin Acetaminophen 650 mg 08/16/25 11:52 08/16/25 12:04 Acetaminophen 325 Mg Tablet PO 08/16/25 11:53 650 mg ONCE ONE Administration Lidocaine 1 patch 08/16/25 11:50 08/16/25 12:03 Lidocaine 4 % Patch Adh..Patch TRANSDERMA 08/16/25 11:51 1 patch ONCE ONE Administration Protocol Methocarbamol 500 mg 08/16/25 11:52 08/16/25 12:04 Methocarbamol 500 Mg Tablet PO 08/16/25 11:53 500 mg ONCE ONE Administration Medical Decision Making Medical Decision Making MDM Narrative: Medical Decision Makin F with atraumatic R medial trapezius pain with palpable spasm tightness of the musculature no bruising. Clear lungs bilateral unlikely to be pleuritic in nature or pneumothorax. Vital signs are stable and reassuring. No distinct injury. Likely muscle spasm or strain multimodal analgesia in the ED with close follow up. Antispasmodics Preliminary Favored Differential Diagnosis: Muscle spasm, muscle strain, unlikely pulmonary pathology or injury among additional considered etiologies Testing Interpreted Independently: ?Sinus rhythm, LVH, poor R-wave progression. No ischemic changes Radiology or Lab testing Results Reviewed: ?See below for details Consults: ?See below for details Independent Historians/External Chart Reviews: ?See below for details Social Determinants of Health Impacting MDM/Planning: ?See below for details Lab Data 08/16/25 11:13 08/16/25 11:13 Labs: Lab Results 08/16/25 Range/Units 11:13 WBC 7.4 (4.8-10.8) X10*3/uL RBC 4.07 L (4.20-5.50) X10*6/uL Hgb 12.1 (12.0-16.0) g/dl Hct 37.8 (37.0-47.0) % MCV 92.9 (80.0-98.0) fL MCH 29.7 (27.0-33.0) pg MCHC 32.0 (31.0-35.0) g/dl RDW 13.3 (11.0-16.0) % Plt Count 194 (160-400) X10*3/uL MPV 10.4 (9.4-12.3) fL Immature Gran % (Auto) 0.5 H (0.0-0.4) % Neut % (Auto) 77.4 H (45-73) % Lymph % (Auto) 16.5 L (20-40) % [place] % (Auto) 3.8 (2-11) % Eos % (Auto) 1.4 (0-4) % Baso % (Auto) 0.4 (0-2) % Lymph # (Auto) 1.2 (1.2-4.9) X10*3/uL [place] # (Auto) 0.3 (0.1-1.2) X10*3/uL Eos # (Auto) 0.1 (0.0-0.4) X10*3/uL Baso # (Auto) 0.0 (0.0-0.2) X10*3/uL Abs Immat Gran (auto) 0.04 H (0.00-0.03) X10*3/uL Absolute Neuts (auto) 5.7 (2.0-8.3) x10*3/uL Absolute Nucleated RBC 0.000 (0.0-0.012) X10*3/uL Nucleated RBC % (auto) 0.0 (0.0-0.2) /100WBC Sodium 144 (135-145) mmol/L Potassium 3.7 (3.3-5.1) mmol/L Chloride 108 (96-108) mmol/L Carbon Dioxide 27 (22-29) mmol/L Anion Gap 13 (12-20) BUN 22 H (9-16) mg/dL Creatinine 0.95 (0.5-1.4) mg/dL Estim Creat Clear Calc 32.6 Estimated GFR 56 Random Glucose 157 H (60-115) mg/dL Calcium 9.0 (8.4-10.2) mg/dL Total Bilirubin 0.2 (0.0-1.0) mg/dL AST 23 (5-31) U/L ALT 15 (0-31) U/L Alkaline Phosphatase 70 (39-117) U/L Troponin I High Sens < 2.7 (<3.5-17.0) ng/L Total Protein 7.3 (6.5-8.0) g/dL Albumin 4.1 (3.5-5.0) g/dL Discharge Plan Discharge Clinical Impression: Trapezius muscle spasm Patient Disposition: Home, Self-Care Instructions: Muscle Spasm (ED) Additional Instructions: We feel that your back/shoulder pain is from a muscle spasm most likely. You had basic lab work cardiac testing EKG and a chest x-ray which were all reassuring Prescriptions: New methocarbamol 500 mg tablet 500 mg PO TID Qty: 7 0RF cyclobenzaprine 5 mg tablet 5 mg PO TID PRN (Reason: muscle spasm) 7 Days Qty: 21 0RF No Action ondansetron 4 mg tablet,disintegrating 4 mg PO Q8H PRN (Reason: nausea and vomiting) Qty: 20 0RF cyclobenzaprine 5 mg tablet 5 mg PO BEDTIME PRN (Reason: muscle spasm) Qty: 7 0RF tramadol 50 mg tablet 50 mg PO Q6H PRN zolpidem 5 mg tablet 5 mg PO BEDTIME PRN rosuvastatin 20 mg tablet 20 mg PO BEDTIME levothyroxine 50 mcg tablet 50 mcg PO DAILY lisinopril 5 mg tablet 5 mg PO DAILY cholecalciferol (vitamin D3) 50 mcg (2,000 unit) capsule 50 mcg PO DAILY aspirin 81 mg tablet,delayed release (DR/EC) 81 mg PO DAILY (DME) FreeStyle Lite Strips Strip See Rx Instructions .ROUTE BID Qty: 10 Rx Instructions: As directed (DME) lancets [FreeStyle Lancets] 28 gauge misc See Rx Instructions .ROUTE BID Qty: 100 Rx Instructions: As directed cyanocobalamin (vitamin B-12) [Vitamin B-12] 1,000 mcg tablet 1,000 mcg PO DAILY metformin 500 mg tablet 500 mg PO BID PreserVision AREDS-2 250-90-40-1 mg capsule 1 cap PO BID simethicone 180 mg capsule 180 mg PO QID 90 Days Qty: 360 1RF Rx Instructions: after meals pantoprazole 40 mg tablet,delayed release (DR/EC) 40 mg PO BID Qty: 180 1RF Interventions: ED Discharge Assessment Last Done: 08/16/25 12:17 Discharge Date/Time: 08/16/25 12:18 Print Language: Greek
--- NOTE | 2025-08-16 10:53 | ECG_ITS ---
Test Reason : shoulder pain Blood Pressure : */* mmHG Vent. Rate : 72 BPM Atrial Rate : 72 BPM P-R Int : 160 ms QRS Dur : 70 ms QT Int : 384 ms P-R-T Axes : 36 -28 25 degrees QTcB Int : 420 ms Normal sinus rhythm Minimal voltage criteria for LVH, may be normal variant ( R in aVL ) Cannot rule out Anterior infarct (cited on or before 19-Sep-2020) Abnormal ECG When compared with ECG of 19-Sep-2020 20:21, No significant change was found Referred By: Paola Monsalve Electronically Signed By: IOANA PICHARDO
[2025-08-16 11:08] VITALS: BP 124/64; PULSE 81; RESP 18; O2SAT 100
[2025-08-16 11:16] LABS: MANUAL DIFF FLAG NO
--- OUTSIDE RECORDS SUMMARY | 2025-08-16 11:21 | XMS_ITS | Encounter Summary ---
Author Organization [employer] Address [address] [facility] [place] [address] Care Team Providers Care Host/Hostess Restaurant Name Role Phone Yesenia Rodriguez MD Primary Care Provide r Reason for Visit * Reason Comments Med Refill Encounter Details Date Type Department Care Team ([facility] st Contact Info) Description 08/10/2025 Refill [facility] MEDICINE [address] [place], [place] [phone] Yesenia Rodriguez MD [address] [place], [place] [phone] Type 2 diabetes mellitus without complication, without long-term current use of insulin (HCC) Social History Tobacco Use Types Packs/Day [...] your housing situation today? I have nico sing 12/11/[address] you li ve. Do you have problems with any of the following? Lead [employer] 12/11/2024 Food Insecurity Answer Date [...] as of this encounter Plan of Treatment Upcoming Encounters Date Type Department Care Team (Late st Contact Info) Description 09/23/2025 11:15 AM EST Office Visit [facility] MEDICINE [address] [place] [address] Yesenia Rodriguez MD [address] [place] [phone] documented as of this encounter Visit Diagnoses Diagnosis Type 2 diabetes mellitus without complication, without long-term current use of insulin (HCC) documented in this encounter Additional Health Concerns Assessment Noted Time PHQ-9 Depression Total Score: 0 06/20/20 24 2:33 PM EDT documented as of this encounter Care Teams Host/Hostess Restaurant Relationship Specialty Start Date End Date Yesenia Rodriguez MD [address] [place] [phone] PCP - General Family Medicine 05/13/21 documented as of this encounter
--- OUTSIDE RECORDS SUMMARY | 2025-08-16 11:21 | XMS_ITS | Encounter Summary ---
Author Organization [facility], Address [address] [place] [address] Phone Care Team Providers Care Clinical Athletic Instructor Name Role Phone Gerardo Pereira MD Primary Care Provider [phone] Encounter Details Date Type Department Care Team (Late st Contact Info) Description 06/11/2020 Orders Only [facility] [address] [place] [phone] Chronic kidney disease stage 3 (HCC); Chronic [...] (HCC) documented in this encounter Care Teams Clinical Athletic Instructor Relationship Specialty Start Date End Date Gerardo Pereira MD [address] [place] [phone] PCP - General Nephrology 07/28/20 documented as of this encounter
--- OUTSIDE RECORDS SUMMARY | 2025-08-16 11:21 | XMS_ITS | Encounter Summary ---
Author Organization [employer] Address [address] [facility] [address] [place] [address] Care Team Providers Care Designer/Writer Name Role Phone Yesenia Rodriguez MD Primary Care Provide r Reason for Visit * Reason Onset Date Comments Med Refill 11/17/2022 Encounter Details Date Type Department Care Team ([facility] st Contact Info) Description 11/17/2022 Telephone [facility] MEDICINE [address] [place], [place] [phone] Yesenia Rodriguez MD [address] [place], [place] [phone] Med Refill Social History Tobacco Use Types [...] 10:53 AM EST Medication was sent to [facility] #[id number] on 11/10/22. * Telephone Encounter - Darrell Yoo Emiliana - 11/17/2022 10:11 AM EST Tc from pt requesting med refill on zolpidem (Ambien) 5 MG tablet Please sent to [facility]/pharmacy #[id number] - [place] [address] [facility] documented in this encounter Plan of Treatment Upcoming Encounters Date Type Department Care Team (Late st Contact Info) Description 09/23/2025 11:15 AM EST Office Visit [facility] MEDICINE [address] [place], [place] [phone] Yesenia Rodriguez MD [address] [place], [place] [phone] documented as of this encounter Visit Diagnoses Not on filedocumented in this encounter Care Teams Designer/Writer Relationship Specialty Start Date End Date Yesenia Rodriguez MD [address] [place] [phone] PCP - General Family Medicine 05/13/21 documented as of this encounter
--- OUTSIDE RECORDS SUMMARY | 2025-08-16 11:21 | XMS_ITS | Encounter Summary ---
Author Organization [employer] Address [address] [facility] [address] [place] [address] Care Team Providers Care Electrical Line Worker Name Role Phone Yesenia Rodriguez MD Primary Care Provide r Encounter Details Date Type Department Care Team ([facility] Contact Info) Description 05/16/2023 Orders Only [facility] MED & PEDS [address] [place], [place] [phone] Kacey Quiroga LPN Social History Tobacco Use [...] Encounters Date Type Department Care Team (Late Contact Info) Description 09/23/2025 11:15 AM EST Office Visit [facility] MEDICINE [address] [place], [place] [phone] Yesenia Rodriguez MD [address] [place], [place] [phone] documented as of this encounter Visit Diagnoses Not on filedocumented in this encounter Additional Health Concerns Assessment Noted Time PHQ-9 Depression Total Score: 0 01/27/20 23 2:42 PM EDT documented as of this encounter Care Teams Electrical Line Worker Relationship Specialty Start Date End Date Yesenia Rodriguez MD [address] [place] [address] PCP - General Family Medicine 05/13/21 documented as of this encounter
--- OUTSIDE RECORDS SUMMARY | 2025-08-16 11:21 | XMS_ITS | Clinical Summary ---
Author Organization [employer] Address [address] [facility] [address] [place] [address] Care Team Providers Care Coin Machine Assembler Name Role Phone Yesenia Rodriguez MD Primary Care Provide r Allergies No known active allergies Medications Blood Glucose Monitoring Suppl (FreeStyle Lite) w/Device kitIndications:T ype 2 diabetes mellitus without complication, without long-term current use of insulin (HCC) 1 kit 2 times daily. 1 kit 06/08/20 23 Active Blood Glucose Monitoring Suppl (ONE TOUCH ULTRA 2) w/Device kit Use to check BS 2x daily 1 kit 07/14/20 23 Active cholecalciferol VITAMIN D (Vitamin D-3) 50 MCG (1999 UT) capsule TAKE 1 CAPSULE BY MOUTH EVERY DAY 90 capsule 1 03/15/20 24 Active Multiple Vitamins-Mineral s (PreserVision AREDS 2) capsuleIndicatio ns:Intermediate stage nonexudative age-related macular degeneration of both eyes Take 1 capsule by mouth 2 times daily. 120 capsule 11 10/16/19 25 026 Active lisinopril 5 MG tablet TOME JEN TABLETA TODOS [place] 90 tablet 3 10/22/19 25 Active metFORMIN (Glucophage) 500 MG tabletIndication s:Type 2 diabetes mellitus without complication, without long-term current use of insulin (HCC) TAKE 1 TABLET BY MOUTH WITH BREAKFAST AND EVENING MEAL 180 tablet 3 01/09/20 25 Active zolpidem (Ambien) 5 MG tabletIndication s:Primary insomnia TAKE 1 TABLET BY MOUTH AT BEDTIME NEEDED FOR SLEEP 30 tablet 05/16/20 25 Active aspirin (Aspirin Low Dose) 81 MG EC tablet TAKE 1 TABLET BY MOUTH EVERY MORNING 90 tablet 1 05/22/20 25 Active levothyroxine (Synthroid, Levoxyl) 50 MCG tablet TAKE 1 TABLET BY MOUTH EVERY DAY 90 tablet 1 05/22/20 25 Active Lancets (OneTouch Delica Plus [id number]) misc USE JAMAR LO INDICADO DOS VECES AL [place] 100 each 11 06/12/20 25 Active rosuvastatin (Crestor) 20 MG tablet TAKE 1 TABLET BY MOUTH AT BEDTIME 90 tablet 3 06/24/20 25 Active OneTouch Ultra Test test stripIndications :Type 2 diabetes mellitus without complication, without long-term current use of insulin (HCC) USE JAMAR LO INDICADO DOS VECES [place] 50 strip 13 08/12/20 25 Active glucose blood (OneTouch Ultra) test stripIndications :Type 2 diabetes mellitus without complication, without long-term current use of insulin (HCC) USE JAMAR LO INDICADO DOS VECES AL [place] 100 strip 11 07/23/20 24 025 Discontinued Active Problems Problem Noted Date Diagnosed Date [...] Encounters Date Type Department Care Team Description 08/16/2025 Orders Only [facility] External Provider, [facility] 08/10/2025 Refill [facility] [address] [place] [phone] Yesenia Rodriguez MD Type 2 diabetes mellitus without complication, without long-term current use of insulin (HCC) 07/19/2025 Telephone [facility] [address] [place], [place] [phone] Yesenia Rodriguez MD PETROS RECALL 06/23/2025 Refill [facility] [address] [place] [address] Yesenia Rodriguez MD 06/14/2025 Patient Outreach [facility] [address] [place] [address] [phone] Yesenia Rodriguez MD Pre-visit Planning ([facility] screening completed on 12/11/2024) 06/11/2025 Refill [facility] [address] [place] [address] Yesenia Rodriguez MD 05/22/2025 Refill [facility] [address] [place] [address] Rupinder Jain MD 05/22/2025 Refill [facility] [address] [place] [address] Yesenia Rodriguez MD 05/16/2025 Refill [facility] [address] [place], [place] [phone] Yesenia Rodriguez MD Primary insomnia from Last 3 Months Immunizations Immunization Administration [...] housing situation today? I have nico jamil 12/11/[address] you li ve. Do you have problems with any of the following? Lead [place] or [place] 12/11/2024 Food Insecurity Answer Date [...] 80 01/10/2025 3:50 PM EDT Temperature 36.2 C (97.1 F) 01/10/2025 3:50 PM EDT Respiratory Rate 19 01/10/2025 3:50 PM EDT [...] Description 09/23/2025 11:15 AM EST Office Visit [facility] [address] [place] [address] Yesenia Rodriguez MD [address] [place] [address] Health Maintenance Due Date Last Done Comments Hepatitis A Vaccines (1 of 2 - Risk 2-dose series) 1964 Zoster Vaccines (2 of 3) 04/04/2014 02/07/2014 RSV Patients and Patients Aged 60 years or older (1 - 1-dose 75+ series) 2019 DTaP/Tdap/Td Vaccines (2 - Td or Tdap) 05/29/2022 05/29/2012 Diabetes: Foot Exam 01/27/2024 01/26/2023, 3 Lipid Panel 01/11/2025 01/12/2024, 01/17, 03/30/2022, Additional history exists COVID-19 Vaccine ( - 2024- season) 2025 09/21/2021, 12/15/2020 Influenza Vaccine (#1) 2025 4, 05/30/2023, 09/10/2020, Additional history exists Depression Screening 06/20/2025 06/20/2024, 06/20/20 Diabetes: Hemoglobin A1C 06/21/2025 0403/ 025, 06/20/2024, 01/12/2024, Additional history exists SDOH Screening 12/11/2025 12/11/2024 Alcohol/Substance Use Screening 01/10/2026 01/10/2025 Tobacco Screening 01/10/2026 01/10/2025 Eye Exam 06/19/2027 06/19/2025, 08/0 04/2025, 04/26/2025, Additional history exists Hepatitis B Vaccines Completed 12/30/2016, 12/12/2015, 09/04/2015 Pneumococcal Vaccine: 50+ Years Completed 02/12/2017, 09/04/2015, 08/04/2009 HIB Vaccines Aged Out No longer eligi [...] Procedure Name Priority Date/Time Associated Diagnosis Comments XR SHOULDER 2+ VIEWS RIGHT Routine 08/16/2025 11:01 AM EST AMB REFERRAL TO OPHTHALMOLOGY Routine 06/19/2025 Intermediate stage nonexudative age-related macular degeneration of both eyes POCT GLYCATED HEMOGLOBIN, TOTAL Routine 12/20/2024 1:26 PM EDT Type 2 diabetes mellitus without complication, without long-term current use of insulin ([facility]) LIPID PANEL, STANDARD Routine 01/12/2024 2:23 PM EDT Encounter for preventive care from Last 3 Months or Most Recently Relevant to Health Maintenance Results * XR Shoulder 2+ Views Right (08/16/2025 11:01 AM EST) Anatomical Region Laterality Modality Upper Extremities, Shoulder Right Radi ographic Imaging 08/16/2025 11:0 1 AM EST Narrative 08/16/2025 11:10 AM EST [place] [id number] XRay Report Signed Patient: Tran Santo MR#: [id number] 8 : 1945 Acct:[id number] Age/Sex: 80 / F ADM Date: 08/16/25 Loc: HO.ED Attending Dr: Ordering Physician: Paola Monsalve Date of Service: 08/16/25 Procedure(s): XR shoulder RT min 2V Accession Number(s): [id number] cc: Yesenia Rodriguez MD; Paola Monsalve Reason for Exam: shoulder pain EXAMINATION: XR SHOULDER 2 OR MORE VIEWS RIGHT HISTORY: shoulder pain COMPARISON: Comparison is made with the prior examination dated 07/20/2017. FINDINGS: Three views of the right shoulder are submitted. Osseous mineralization is normal. There is no fracture or dislocation. The glenohumeral joint is maintained. There is mild osteoarthritis of the AC joint. The soft tissues are unremarkable. XR/XR shoulder RT min 2V IMPRESSION: Mild osteoarthritis of the AC joint. Electronically signed by: Dillon Ruelas MD 08/16/2025 11:07 AM EST RP Dictated By: Dillon Ruelas MD Signed By: <Electronically signed by Dillon Ruelas MD in OV> 08/16/25 1107 DD/ 1101 TD/TT: 08/16/25 1101 Turkish Line Attendant: Procedure Note Donotuseinterpreter, Image - 08/16/2025 [place] [address] XRay Report Signed Patient: Tran SantoMR#: [id number] 8 : 1945cct:[id number] Age/Sex: 80 / FADM Date: 08/16/25 Loc: HO.ED Attending Dr: Ordering Physician: Paola Monsalve Date of Service: 08/16/25 Procedure(s): XR shoulder RT min 2V Accession Number(s): [id number] cc: Yesenia Rodriguez MD; Paola Monsalve Reason for Exam: shoulder pain EXAMINATION: XR SHOULDER 2 OR MORE VIEWS RIGHT HISTORY: shoulder pain COMPARISON: Comparison is made with the prior examination dated 07/20/2017. FINDINGS: Three views of the right shoulder are submitted. Osseous mineralization is normal. There is no fracture or dislocation. The glenohumeral joint is maintained. There is mild osteoarthritis of the AC joint. The soft tissues are unremarkable. XR/XR shoulder RT min 2V IMPRESSION: Mild osteoarthritis of the AC joint. Electronically signed by: Dillon Ruelas MD 08/16/2025 11:07 AM EST RP Dictated By: Dillon Ruelas MD Signed By: <Electronically signed by Dlilon Ruelas MD in OV> 08/16/25 1107 DD/ 1101 TD/TT: 08/16/25 1101 Turkish Line Attendant: [facility] External Provider IMG XR PROCEDURES Final Result * Referral to Ophthalmology (06/19/2025) Tamiko Thorpe OD OUTPATIENT REFERRAL ORDERABLES Final Result * (ABNORMAL) POCT HGB A1C (12/20/2024 1:26 PM EDT) Hemoglobin A1C 6.1(A) 4.0 - 6.0 % QC Media Lot # [id number] Lot# Expiration Date Blood 12/20/2024 1:26 PM EDT Yesenia Nicholas MD POINT OF CARE TEST EN TER/EDIT ORDERABLES Final Result * Lipid Panel, Standard (01/12/2024 2:23 PM EDT) Triglycerides 79 <150 mg/dL [facility] Comment:Desirable Triglyceri de: less than 150 mg/dLBorderline High Triglyceride 150-199 mg/dLHigh Triglyceride: 200-499 mg/dLVery High Triglyceride: greater than or equal to 5OO mg/dL Cholesterol 116 <200 mg/dL [facility] Comment:Desirable Cholestero l: less than 200 mg/dLBorderline High Cholesterol: 200-239 mg/dLHigh Cholesterol: greater than 239 mg/dL LDL Cholesterol Calculated 54 <100 mg/dL [facility] Comment:Desirable LDL: less than 100 mg/dLNear Optimal/Above Optimal LDL: 110- 129 mg/dLBorderline High LDL: 130-159 mg/dLHigh LDL: 160-189 mg/dLVery High LDL: greater than or equal to 190 mg/dL HDL Cholesterol 47 >40 mg/dL [facility] Comment:Desirable HDL: great er than 40 mg/dL Note: This HDL assay may give artificially low results in patients with liver disease. Blood Venous blood specimen / Unknown 01/12/2024 2:23 PM EDT 01/12/2024 3:50 PM EDT Yesenia Nicholas MD LAB BLOOD ORDERABLES Final Result [facility] [address] [place] [address] [phone] from Last 3 Months or Most Recently Relevant to Health Maintenance Insurance [address] [place] [phone] Care Teams Coin Machine Assembler Relationship Specialty Start Date End Date Yesenia Rodriguez MD [address] [place] [address] PCP - General Family Medicine 05/13/21
--- OUTSIDE RECORDS SUMMARY | 2025-08-16 11:21 | XMS_ITS | Encounter Summary ---
Author Organization [employer] Address [address] 7t [place] [address] Care Team Providers Care Business Technology Architect Name Role Phone Yesenia Rodriguez MD Primary Care Provide r Reason for Visit * Reason Comments Med Refill Encounter Details Date Type Department Care Team ([facility] st Contact Info) Description 08/13/2023 Refill [facility] [address] [place], [place] [phone] Yesenia Rodriguez MD [address] [place], [place] [phone] Social History Tobacco Use Types Packs/Day Years [...] Description 09/23/2025 11:15 AM EST Office Visit [facility] [address] [place] [address] Yesenia Rodriguez MD [address] [place] [address] documented as of this encounter Visit Diagnoses Not on filedocumented in this encounter Additional Health Concerns Assessment Noted Time PHQ-9 Depression Total Score: 0 01/27/20 23 2:42 PM EDT documented as of this encounter Care Teams Business Technology Architect Relationship Specialty Start Date End Date Yesenia Rodriguez MD [address] [place], [place] [phone] PCP - General Family Medicine 05/13/21 documented as of this encounter
--- OUTSIDE RECORDS SUMMARY | 2025-08-16 11:21 | XMS_ITS | Encounter Summary ---
Author Organization [employer] Address [address] 7[address] [place] [address] Care Team Providers Care Record Center Coordinator Name Role Phone Yesenia Rodriguez MD Primary Care Provide r Encounter Details Date Type Department Care Team ([facility] Contact Info) Description 08/16/2025 Orders Only [facility] External Provider, [facility] Social History Tobacco Use Types Packs/Day Years [...] problems with any of the following? Lead [place] or [place] 12/11/2024 Food Insecurity Answer Date [...] Description 09/23/2025 11:15 AM EST Office Visit [facility] [address] [place], [place] [phone] Yesenia Rodriguez MD [address] [place] [address] documented as of this encounter Procedures Procedure Name Priority Date/Time Associated Diagnosis Comments XR SHOULDER 2+ VIEWS RIGHT Routine 08/16/2025 11:01 AM EST documented in this encounter Results * XR Shoulder 2+ Views Right (08/16/2025 11:01 AM EST) Anatomical Region Laterality Modality Upper Extremities, Shoulder Right Radi ographic Imaging 08/16/2025 11:0 1 AM EST Narrative 08/16/2025 11:10 AM EST [address] [address] XRay Report Signed Patient: Tran Santo MR#: [id number] 8 : 1945 Acct:[id number] Age/Sex: 80 / F ADM Date: 08/16/25 Loc: .ED Attending Dr: Ordering Physician: Paola Monsalve Date of Service: 08/16/25 Procedure(s): XR shoulder RT min 2V Accession Number(s): [id number] cc: Yesenia Rodriguez MD; Paola Monsalve Reason [...] 08/16/25 1107 DD/ 1101 TD/TT: 08/16/25 1101 Termite Exterminator: Procedure Note Donotuseinterpreter, Image - 08/16/2025 [place] [address] XRay Report Signed Patient: Irlanda Santo#: [id number] 8 : 4Acct:[id number] Age/Sex: 80 / FADM Date: 08/16/25 Loc: HO.ED Attending Dr: Ordering Physician: Paola Monsalve Date of Service: 08/16/25 Procedure(s): XR shoulder RT min 2V Accession Number(s): [id number] cc: Yesenia Rodriguez MD; Paola Monsalve Reason [...] 08/16/25 1107 DD/ 1101 TD/TT: 08/16/25 1101 Termite Exterminator: [facility] External Provider IMG XR PROCEDURES Final Result documented in this encounter Visit Diagnoses Not on filedocumented in this encounter Additional Health Concerns Assessment Noted Time PHQ-9 Depression Total Score: 0 06/20/20 24 2:33 PM EDT documented as of this encounter Care Teams Record Center Coordinator Relationship Specialty Start Date End Date Yesenia Rodriguez MD [address] [place] [address] PCP - General Family Medicine 05/13/21 documented as of this encounter
--- OUTSIDE RECORDS SUMMARY | 2025-08-16 11:21 | XMS_ITS | Encounter Summary ---
Author Organization [email or web address] Address [address] [place] [address] Care Team Providers Care Assistant Construction Superintendent Name Role Phone Yesenia Rodriguez MD Primary Care Provide r Reason for Visit * Reason Comments Med Refill Encounter Details Date Type Department Care Team ([facility] st Contact Info) Description 08/12/2023 Refill [facility] [address] [place], [place] [phone] Yesenia Rodriguez MD [address] [place], [place] [phone] Social History Tobacco Use Types Packs/Day Years [...] Description 09/23/2025 11:15 AM EST Office Visit [facility] [address] [place] [address] Yesenia Rodriguez MD [address] [place] [address] documented as of this encounter Visit Diagnoses Not on filedocumented in this encounter Additional Health Concerns Assessment Noted Time PHQ-9 Depression Total Score: 0 01/27/20 23 2:42 PM EDT documented as of this encounter Care Teams Assistant Construction Superintendent Relationship Specialty Start Date End Date Yesenia Rodriguez MD [address] [place], [place] [phone] PCP - General Family Medicine 05/13/21 documented as of this encounter
--- OUTSIDE RECORDS SUMMARY | 2025-08-16 11:21 | XMS_ITS | Clinical Summary ---
Author Organization [facility], Address [address] [place] [address] Phone Care Team Providers Care Preparer Samples And Repairs Name Role Phone Gerardo Pereira MD Primary Care Provider [phone] Medications aspirin (ASPIR-LOW) 81 MG EC tablet [...] Maintenance Due Date Last Done Comments Hepatitis B Vaccine (1 of 3 - Risk 3-dose series) 2004 12/30/2016, 12/12/2015, 09/04/2015 Diabetes: Pedal Pulse Checked 12/06/2019 Diabetes: Sensory Foot Exam 12/06/2019 Diabetes: Visual Foot Exam 12/06/2019 Diabetes: Hemoglobin A1C 03/21/2025 12/20/2024, 01/17 Influenza Vaccine (#1) 2025 4, 05/30/2023, 06/26/2019, Additional history exists Diabetes: Ophthalmology Exam 04/26/2026 04/26/2025 Pneumococcal Vaccine: 50+ Years Completed 02/12/2017, 09/04/2015, 11/20/2013, Additional history exists Pneumococcal Vaccine: Peds ( 0 to 5 Years) and At-Risk Patients (6 to 49 Years) Discontinued 02/12/2017, 09/04/2015, 11/20/2013, Additional history exists Insurance [address] [place] [address] [facility] [place] [id number] Care Teams Preparer Samples And Repairs Relationship Specialty Start Date End Date Gerardo Pereira MD [address] [place] [phone] PCP - General Nephrology 07/28/20
--- OUTSIDE RECORDS SUMMARY | 2025-08-16 11:21 | XMS_ITS | Encounter Summary ---
Author Organization [employer] Address [address] 7[address] [place] [address] Care Team Providers Care Invoice Coder Name Role Phone Yesenia Rodriguez MD Primary Care Provide r Reason for Visit * Reason Onset Date Comments Appointment Request 07/14/2023 Encounter Details Date Type Department Care Team ([facility] Contact Info) Description 07/14/2023 Telephone [facility] [address] [place], [place] [phone] Yesenia Rodriguez MD [address] [place] [address] Appointment Request Social History Tobacco Use Types [...] t he electric, gas, oil or water [employer] threatened to shut off services in your [...] up appt for pt. Please contact Yesenia [phone] Ext [phone] documented in this encounter Plan of Treatment Upcoming Encounters Date Type Department Care Team (Late st Contact Info) Description 09/23/2025 11:15 AM EST Office Visit [facility] [address] [place] [address] Yesenia Rodriguez MD [address] [place] [address] documented as of this encounter Visit Diagnoses Not on filedocumented in this encounter Additional Health Concerns Assessment Noted Time PHQ-9 Depression Total Score: 0 01/27/20 23 2:42 PM EDT documented as of this encounter Care Teams Invoice Coder Relationship Specialty Start Date End Date Yesenia Rodriguez MD [address] [place] [address] PCP - General Family Medicine 05/13/21 documented as of this encounter
[2025-08-16 11:30] LABS: Hematocrit 37.8 % (37.0-47.0); Hemoglobin 12.1 g/dl (12.0-16.0); Imm Gran Abs Auto 0.04 X10*3/uL (0.00-0.03); Imm Gran Pct Auto 0.5 % (0.0-0.4); Lymphocytes Absolute Auto 1.2 X10*3/uL (1.2-4.9); Mean Corpuscular HGB Conc 32.0 g/dl (31.0-35.0); Mean Corpuscular Hemoglobin 29.7 pg (27.0-33.0); Mean Corpuscular Volume 92.9 fL (80.0-98.0); NRBC Abs Auto 0.000 X10*3/uL (0.0-0.012); NRBC Pct Auto 0.0 /100WBC (0.0-0.2); Platelet Count 194 X10*3/uL (160-400); Red Blood Count 4.07 X10*6/uL (4.20-5.50); White Blood Count 7.4 X10*3/uL (4.8-10.8)
[2025-08-16 11:34] LABS: Alanine Aminotransferase 15 U/L (0-31); Albumin Level 4.1 g/dL (3.5-5.0); Alkaline Phosphatase 70 U/L (39-117); Anion Gap 13 (12-20); Aspartate Amino Transferase 23 U/L (5-31); Blood Urea Nitrogen 22 mg/dL (9-16); Calcium 9.0 mg/dL (8.4-10.2); Carbon Dioxide 27 mmol/L (22-29); Chloride 108 mmol/L (96-108); Creatinine Clr Calc Pharmacy 32.6; Estimated Glomerular Filt Rate 56; Potassium 3.7 mmol/L (3.3-5.1); Sodium 144 mmol/L (135-145); Total Protein 7.3 g/dL (6.5-8.0)
[2025-08-16 11:45] LABS: Troponin-I High Sensitivity < 2.7 ng/L (<3.5-17.0)
[2025-08-16] MEDS: Lidocaine 4 % Patch ADH..PATCH 1 PATCH TRANSDERMA (12:03)
[2025-08-16 12:17] VITALS: BP 124/64; PULSE 81; RESP 18; TEMP 37.1; O2SAT 100
== END 2025-08-16 12:18 | disposition home or self-care (01) ==
PROVIDERS: Physician Assistant Medical; Emergency Provider Emergency Medicine; PCP Internal Medicine
DX: M25.511 Pain in right shoulder (principal); M54.50 Low back pain, unspecified; M25.552 Pain in left hip; R94.31 Abnormal electrocardiogram [ECG] [EKG]; Z79.899 Other long term (current) drug therapy
CPT/HCPCS: 36415; 73030; 80053; 84484; 85025; 93005; 99283; 99284

== ENCOUNTER → 2025-08-16 10:53 | Outpatient (BNV) | payer OTHER, SELFPAY | PROVIDERS: Emergency Provider Emergency Medicine; PCP Internal Medicine; Visit Provider Internal Medicine | DX: R94.31 Abnormal electrocardiogram [ECG] [EKG] (principal); M25.519 Pain in unspecified shoulder | CPT/HCPCS: 93010 ==

== ENCOUNTER → 2025-08-16 10:53 | Outpatient (BNV) | payer OTHER, SELFPAY | PROVIDERS: Emergency Provider Emergency Medicine; PCP Internal Medicine; Visit Provider Radiology Diagnostic Radiology | DX: M19.011 Primary osteoarthritis, right shoulder (principal) | CPT/HCPCS: 73030 ==

== ENCOUNTER 2025-08-19 11:02 | Emergency (ER) | payer OTHER, SELFPAY ==
--- NOTE | ~2025-08-19 | XR_ITS ---
EXAMINATION: XR CHEST CLINICAL INFORMATION: chest pain COMPARISON: Previous chest x-ray most recent July 2023 TECHNIQUE: 2 views of the chest were obtained. FINDINGS: The lungs are clear. No consolidation or pulmonary edema. No pleural effusion or pneumothorax. Cardiac and mediastinal contours are stable. Degenerative changes of the spine and mild scoliosis. XR/XR chest 2V IMPRESSION: No evidence for acute disease in the chest. Electronically signed by: Swetha Mcqueen MD 08/19/2025 12:16 PM [facility]
--- NOTE | ~2025-08-19 | XR_ITS ---
EXAMINATION: XR CERVICAL SPINE CLINICAL INFORMATION: Left neck pain COMPARISON: None available. FINDINGS: There is mild reversal of the cervical lordosis. There is no prevertebral soft tissue swelling. C2-3: There are posterior endplate osteophytes. C3-4: There is mild disc space narrowing and endplate osteophytes. C4/5: There is moderate to severe disc space narrowing with endplate sclerosis and osteophytes. There is also facet narrowing and uncovertebral osteophytes. C5-6: There is moderate disc space narrowing with endplate sclerosis and osteophytes. There are uncovertebral facet osteophytes. C6-7: There is moderate disc space narrowing with endplate sclerosis and osteophytes. There is mild facet sclerosis with uncovertebral and facet osteophytes. C7-T1: Unremarkable. XR/XR cervical spine 3V IMPRESSION: There is mild reversal of the expected cervical lordosis. This can be idiopathic, but can also be related to degenerative change, muscle spasm, or posterior soft tissue injury. Multilevel degenerative changes are most advanced at C4-5. Electronically signed by: Esdras Redding MD 08/19/2025 02:38 PM EST
--- NOTE | 2025-08-19 11:04 | ECG_ITS ---
Test Reason : CHEST PAIN Blood Pressure : */* mmHG Vent. 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
--- NOTE | 2025-08-19 11:19 | ED.GENADULT ---
HPI - General Adult General Chief complaint: Chest Pain Stated complaint: not feeling good, back pain with cp Time Seen by Provider: 08/19/25 12:13 Source: patient, family () and mortgage originator (estonian) Mode of arrival: ambulatory Limitations: language barrier (estonian) History of Present Illness ED Provider: ALLIE KONG PA-C HPI narrative: 80 year old female presents to the ED today for left sided neck/upper back pain x2 weeks. She has been taking flexeril without much improvement. Denies injury/trauma. No hx of spinal surgery/IVDU. Denies numbness/tingling/weakness of the UEs, chest pain palpitations, headache, dizziness, vision changes. Triage note states patient reporting chest pain - utilized gold assayer to clarify with patient who states she does not have chest pain, pain is localized to her left neck, worse with movements. Related Data Home Medications ?Medication ?Instructions ?Recorded ?Confirmed cholecalciferol (vitamin D3) 50 50 mcg PO DAILY 11/06/20 mcg (2,000 unit) capsule levothyroxine 50 mcg tablet 50 mcg PO DAILY 11/06/20 lisinopril 5 mg tablet 5 mg PO DAILY 11/06/20 rosuvastatin 20 mg tablet 20 mg PO BEDTIME 11/06/20 tramadol 50 mg tablet 50 mg PO Q6H PRN 11/06/20 zolpidem 5 mg tablet 5 mg PO BEDTIME PRN 11/06/20 aspirin 81 mg tablet,delayed 81 mg PO DAILY 10/27/22 release blood sugar diagnostic (FreeStyle #10 ea 10/27/22 Lite Strips) lancets 28 gauge (FreeStyle #100 ea 10/27/22 Lancets) cyanocobalamin (vitamin B-12) 1,000 mcg PO DAILY 04/27/23 1,000 mcg tablet (Vitamin B-12) metformin 500 mg tablet 500 mg PO BID 01/30/25 vit C 250 mg-vit E 90 mg-zinc 40 1 cap PO BID 01/30/25 mg-copper 1 [id number] capsule (PreserVision AREDS-2) Previous Rx's ?Medication ?Instructions ?Recorded ondansetron 4 mg disintegrating 4 mg PO Q8H PRN nausea and 09/19/20 tablet vomiting #20 tabs cyclobenzaprine 5 mg tablet 5 mg PO BEDTIME PRN muscle spasm 01/09/21 #7 tabs pantoprazole 40 mg tablet,delayed 40 mg PO BID #180 tabs 01/30/25 release simethicone 180 mg capsule 180 mg PO QID 90 days #360 caps 01/30/25 cyclobenzaprine 5 mg tablet 5 mg PO TID PRN muscle spasm 7 08/16/25 days #21 tabs methocarbamol 500 mg tablet 500 mg PO TID #7 tabs 08/16/25 lidocaine 5 % topical patch See Rx Instructions topical 08/19/25 .COMPLEX #15 ea methocarbamol 500 mg tablet 1,000 mg (2 x 500 mg) PO Q8H PRN 08/19/25 muscle spasm 3 days #18 tabs Allergies Allergy/AdvReac Type Severity Reaction Status Date / Time No Known Allergies Allergy Verified 08/19/25 11:29 Review of Systems Review of Systems: Yes all other systems are reviewed and are negative PMFSH Past Medical History Attestation statement: The following information was validated with the patient. Source: old records reviewed and nursing notes reviewed Medical History Gastritis Arthritis Sciatica Osteopenia Diabetes Surgical History H/O: hysterectomy Hx of colonoscopy History of esophagogastroduodenoscopy (EGD) Family History Family History Father No problems noted. Mother Diabetes Daughter Ovarian cancer Social History Social History Household Members: Spouse Alcohol intake: never Advance Directives: No Advance Directives Information Provided: Yes Do you have a plan to hurt others: No Plan Current occupational status: retired Physical Exam ED Vital Signs: BMI result Body Mass Index 21.5 vital signs stable General: Well appearing, in no acute distress. Skin: Warm, dry, intact. No rashes or lesions. Head: Normocephalic, atraumatic. EENT: Hearing is intact b/l. Conjunctiva clear. PERRLA. EOM intact. Moist mucous membranes.? Neck: Supple without LAD. +ttp along L cerivcal paraspinal muscles extending to left trap with palpable spasm, pain with ROM to L. Cardiac: Chest wall symmetric. RRR Lungs: Normal respiratory effort without accessory muscle use. CTA bilaterally Abdomen: Soft, non-tender, non-distended. No rebound tenderness or guarding. Positive BS x4. Back: No midline spinous or paraspinal tenderness. No step off deformity. Ext: Upper and lower extremities atraumatic, without tenderness, deformity, swelling or erythema. Full ROM throughout Neuro: AOx3. Normal speech. Ambulating with steady gait. Course Course Course Narrative: This is a rapid medical exam performed by Britton Mcguire NP: Additional HPI, ROS, PE not included below will be deferred to primary provider. Patient is an 80y/o Irish speaking F with history of erosive esophagitis presenting with 3 days of progressively worsening chest pain back pain. Deneis any dyspnea, nausea or vomiting. Plan: EKG, labs, CXR Reevaluation(s) Reevaluation #1: Labs around baseline. Trop negative. ekg and cxr unremarkable. Cervical XR findings consistent with/ muscle spasm, as is physical exam. Treated with valium in ED w/ improvement in pain. Will d/c home on robaxin.?Patient has remained stable throughout ED visit today. Discussed worrisome signs and symptoms and when to return to the ED. All questions answered at this time. Patient is agreeable with disposition and stable for discharge. Medications Administered Discontinued Medications Generic Name Dose Route Start Last Admin Trade Name Freq PRN Reason Stop Dose Admin Diazepam 2 mg 08/19/25 12:46 08/19/25 13:38 Diazepam 2 Mg Tablet PO 08/19/25 12:47 2 mg ONCE ONE Administration Medical Decision Making Medical Decision Making [facility] Narrative: 80 year old female presents to the ED today for left sided neck/upper back pain x2 weeks. vital signs stable, patient is well appearing and in NAD. on exam ttp along L cerivcal paraspinal muscles extending to left trap with palpable spasm, pain with ROM to L. Differential diagnosis includes msk sprain/strain, muscle spasm, fracture, torticolis, cervical radiculopathy Unlikely ACS, arrhythmia, dissection. Plan for labs, ekg, imaging, pain control and re-eval. Differential Diagnosis Differential Diagnoses: The differential diagnosis associated with the presentation includes as above. Admission/Observation not indicated. Lab Data [facility] Lab Attestation statement: I reviewed the patient's lab results. as above. 08/19/25 11:46 08/19/25 11:46 Labs: Lab Results 08/19/25 Range/Units 11:46 WBC 7.1 (4.8-10.8) X10*3/uL RBC 4.18 L (4.20-5.50) X10*6/uL Hgb 12.4 (12.0-16.0) g/dl Hct 38.4 (37.0-47.0) % MCV 91.9 (80.0-98.0) fL MCH 29.7 (27.0-33.0) pg MCHC 32.3 (31.0-35.0) g/dl RDW 13.5 (11.0-16.0) % Plt Count 187 (160-400) X10*3/uL MPV 10.6 (9.4-12.3) fL Immature Gran % (Auto) 0.4 (0.0-0.4) % Neut % (Auto) 76.6 H (45-73) % Lymph % (Auto) 16.5 L (20-40) % Converse % (Auto) 4.5 (2-11) % Eos % (Auto) 1.6 (0-4) % Baso % (Auto) 0.4 (0-2) % Lymph # (Auto) 1.2 (1.2-4.9) X10*3/uL Converse # (Auto) 0.3 (0.1-1.2) X10*3/uL Eos # (Auto) 0.1 (0.0-0.4) X10*3/uL Baso # (Auto) 0.0 (0.0-0.2) X10*3/uL Abs Immat Gran (auto) 0.03 (0.00-0.03) X10*3/uL Absolute Neuts (auto) 5.4 (2.0-8.3) x10*3/uL Absolute Nucleated RBC 0.000 (0.0-0.012) X10*3/uL Nucleated RBC % (auto) 0.0 (0.0-0.2) /100WBC PT 13.5 (11.2-13.5) SEC INR 1.1 (0.9-1.1) Sodium 141 (135-145) mmol/L Potassium 3.6 (3.3-5.1) mmol/L Chloride 102 (96-108) mmol/L Carbon Dioxide 30 H (22-29) mmol/L Anion Gap 13 (12-20) BUN 21 H (9-16) mg/dL Creatinine 0.85 (0.5-1.4) mg/dL Estim Creat Clear Calc 31.6 Estimated GFR > 60 Random Glucose 158 H (60-115) mg/dL Calcium 9.5 (8.4-10.2) mg/dL Total Bilirubin 0.4 (0.0-1.0) mg/dL AST 22 (5-31) U/L ALT 12 (0-31) U/L Alkaline Phosphatase 73 (39-117) U/L Troponin I High Sens < 2.7 (<3.5-17.0) ng/L Total Protein 7.5 (6.5-8.0) g/dL Albumin 4.1 (3.5-5.0) g/dL Independent Interpretation I performed an independent interpretation of an: EKG and Plain X-Ray Interpretation: cxr without infiltrate or consolidation xr c spine without fracture ekg showing NSR rate 96 bpm, no acute ischemic changes or st elevations Radiology Impression Discussion of test interpretation with radiology: I have reviewed the radiologist's reading. Radiologist Impression: Procedure(s): XR chest 2V Accession Number(s): [id number] cc: Yesenia Rodriguez MD; Jen Mcguire NP~ Reason for Exam: chest pain EXAMINATION: XR CHEST CLINICAL INFORMATION: chest pain COMPARISON: Previous chest x-ray most recent July 2023 TECHNIQUE: 2 views of the chest were obtained. FINDINGS: The lungs are clear. No consolidation or pulmonary edema. No pleural effusion or pneumothorax. Cardiac and mediastinal contours are stable. Degenerative changes of the spine and mild scoliosis. XR/XR chest 2V IMPRESSION: No evidence for acute disease in the chest. Electronically signed by: Swetha Mcqueen MD 08/19/2025 12:16 PM [facility] Procedure(s): XR cervical spine 3V Accession Number(s): [id number] cc: Yesenia Rodriguez MD; Allie Kong~ Reason for Exam: L sided neck pain EXAMINATION: XR CERVICAL SPINE CLINICAL INFORMATION: Left neck pain COMPARISON: None available. FINDINGS: There is mild reversal of the cervical lordosis. There is no prevertebral soft tissue swelling. C2-3: There are posterior endplate osteophytes. C3-4: There is mild disc space narrowing and endplate osteophytes. C4/5: There is moderate to severe disc space narrowing with endplate sclerosis and osteophytes. There is also facet narrowing and uncovertebral osteophytes. C5-6: There is moderate disc space narrowing with endplate sclerosis and osteophytes. There are uncovertebral facet osteophytes. C6-7: There is moderate disc space narrowing with endplate sclerosis and osteophytes. There is mild facet sclerosis with uncovertebral and facet osteophytes. C7-T1: Unremarkable. XR/XR cervical spine 3V IMPRESSION: There is mild reversal of the expected cervical lordosis. This can be idiopathic, but can also be related to degenerative change, muscle spasm, or posterior soft tissue injury. Multilevel degenerative changes are most advanced at C4-5. Electronically signed by: Esdras Redding MD 08/19/2025 02:38 PM [facility] External Record Review External record reviewed: Inpatient record Prescription Management I considered prescription management with: Other (robaxin) Social Determinants Patient?s care significantly limited by Social Determinants of Health including: Other Social Determinant of Health Critical Care Time Critical Care Time Critical Care Time: No Discharge Plan Discharge Clinical Impression: Cervical paraspinal muscle spasm Patient Disposition: Home, Self-Care Instructions: Muscle Spasm (ED) Additional Instructions: You were evaluated in the ED today for left sided neck/upper back pain. Your blood work and chest xrays are reassuring. The xray of your neck shows findings suspicious for a muscle spasm of your neck. This is consistent with your exam findings. I am sending lidocaine patches to your pharmacy. Apply this to your upper back every 12 hours for pain control. STOP TAKING THE CYCLOBENZAPRINE (FLEXERIL). Instead, I am sending methocarbamol (robaxin) to your pharmacy to help with the pain. You may also take tylenol/motrin at home as needed. Follow up with your PCP. Return with any new or worsening symptoms. In the case of an emergency call 911. Prescriptions: New methocarbamol 500 mg tablet 1,000 mg PO Q8H PRN (Reason: muscle spasm) 3 Days Qty: 18 0RF lidocaine 5 % adhesive patch,medicated See Rx Instructions .ROUTE .COMPLEX Qty: 15 0RF Rx Instructions: leave on most painful area for up to 12 hrs No Action ondansetron 4 mg tablet,disintegrating 4 mg PO Q8H PRN (Reason: nausea and vomiting) Qty: 20 0RF cyclobenzaprine 5 mg tablet 5 mg PO BEDTIME PRN (Reason: muscle spasm) Qty: 7 0RF methocarbamol 500 mg tablet 500 mg PO TID Qty: 7 0RF cyclobenzaprine 5 mg tablet 5 mg PO TID PRN (Reason: muscle spasm) 7 Days Qty: 21 0RF tramadol 50 mg tablet 50 mg PO Q6H PRN zolpidem 5 mg tablet 5 mg PO BEDTIME PRN rosuvastatin 20 mg tablet 20 mg PO BEDTIME levothyroxine 50 mcg tablet 50 mcg PO DAILY lisinopril 5 mg tablet 5 mg PO DAILY cholecalciferol (vitamin D3) 50 mcg (2,000 unit) capsule 50 mcg PO DAILY aspirin 81 mg tablet,delayed release (DR/EC) 81 mg PO DAILY (DME) FreeStyle Lite Strips Strip See Rx Instructions .ROUTE BID Qty: 10 Rx Instructions: As directed (DME) lancets [FreeStyle Lancets] 28 gauge misc See Rx Instructions .ROUTE BID Qty: 100 Rx Instructions: As directed cyanocobalamin (vitamin B-12) [Vitamin B-12] 1,000 mcg tablet 1,000 mcg PO DAILY metformin 500 mg tablet 500 mg PO BID PreserVision AREDS-2 250-90-40-1 mg capsule 1 cap PO BID simethicone 180 mg capsule 180 mg PO QID 90 Days Qty: 360 1RF Rx Instructions: after meals pantoprazole 40 mg tablet,delayed release (DR/EC) 40 mg PO BID Qty: 180 1RF Referrals: Yesenia Rodriguez MD [Primary Care Provider, Internal Medicine] Interventions: ED Discharge Assessment Last Done: 08/19/25 15:17 Discharge Date/Time: 08/19/25 15:19 Print Language: Irish
[2025-08-19 11:26] VITALS: BP 136/64; PULSE 93; RESP 18; TEMP 36.4; O2SAT 98; BMI 21.5
[2025-08-19 11:52] LABS: MANUAL DIFF FLAG NO
[2025-08-19 11:56] LABS: Hematocrit 38.4 % (37.0-47.0); Hemoglobin 12.4 g/dl (12.0-16.0); Imm Gran Abs Auto 0.03 X10*3/uL (0.00-0.03); Imm Gran Pct Auto 0.4 % (0.0-0.4); Lymphocytes Absolute Auto 1.2 X10*3/uL (1.2-4.9); Mean Corpuscular HGB Conc 32.3 g/dl (31.0-35.0); Mean Corpuscular Hemoglobin 29.7 pg (27.0-33.0); Mean Corpuscular Volume 91.9 fL (80.0-98.0); NRBC Abs Auto 0.000 X10*3/uL (0.0-0.012); NRBC Pct Auto 0.0 /100WBC (0.0-0.2); Platelet Count 187 X10*3/uL (160-400); Red Blood Count 4.18 X10*6/uL (4.20-5.50); White Blood Count 7.1 X10*3/uL (4.8-10.8)
[2025-08-19 12:02] LABS: INTERNATIONAL NORM RATIO 1.1 (0.9-1.1); Prothrombin Time 13.5 SEC (11.2-13.5)
[2025-08-19 12:12] LABS: Alanine Aminotransferase 12 U/L (0-31); Albumin Level 4.1 g/dL (3.5-5.0); Alkaline Phosphatase 73 U/L (39-117); Anion Gap 13 (12-20); Aspartate Amino Transferase 22 U/L (5-31); Blood Urea Nitrogen 21 mg/dL (9-16); Calcium 9.5 mg/dL (8.4-10.2); Carbon Dioxide 30 mmol/L (22-29); Chloride 102 mmol/L (96-108); Creatinine Clr Calc Pharmacy 31.6; Estimated Glomerular Filt Rate > 60; Potassium 3.6 mmol/L (3.3-5.1); Sodium 141 mmol/L (135-145); Total Protein 7.5 g/dL (6.5-8.0)
[2025-08-19 12:28] LABS: Troponin-I High Sensitivity < 2.7 ng/L (<3.5-17.0)
[2025-08-19 15:07] VITALS: BP 136/64; PULSE 93; RESP 18; TEMP 36.4; O2SAT 98
[2025-08-19 15:17] VITALS: BP 136/64; PULSE 93; RESP 18; TEMP 36.4; O2SAT 98
--- OUTSIDE RECORDS SUMMARY | 2025-08-19 15:18 | XMS_ITS | Encounter Summary ---
Author Organization [facility], Address [address] [place] [address] Phone Care Team Providers Care Furnace Process Supervisor Name Role Phone Gerardo Pereira MD Primary Care Provider [phone] Encounter Details Date Type Department Care Team (Late st Contact Info) Description 06/11/2020 Orders Only [facility] [address] [place] [id number] Chronic kidney disease stage 3 (HCC); Chronic [...] (HCC) documented in this encounter Care Teams Furnace Process Supervisor Relationship Specialty Start Date End Date Gerardo Pereira MD [address] [place] [id number] PCP - General Nephrology 07/28/20 documented as of this encounter
--- OUTSIDE RECORDS SUMMARY | 2025-08-19 15:18 | XMS_ITS | Clinical Summary ---
Author Organization [facility], Address [address] [place] [address] Phone Care Team Providers Care Quantitative Researcher Name Role Phone Gerardo Pereira MD Primary Care Provider [phone] Medications aspirin (ASPIR-LOW) 81 MG EC tablet [...] 11/20/2013, Additional history exists Insurance [address] [place] [address] [facility] [place] [id number] Care Teams Quantitative Researcher Relationship Specialty Start Date End Date Gerardo Pereira MD [address] [place] [phone] PCP - General Nephrology 07/28/20
== END 2025-08-19 15:19 | disposition home or self-care (01) ==
PROVIDERS: Registered Nurse Emergency; Emergency Provider Emergency Medicine Emergency Medical Services; PCP Internal Medicine
DX: M62.838 Other muscle spasm (principal)
CPT/HCPCS: 36415; 71046; 72040; 80053; 84484; 85025; 85610; 93005; 99283

== ENCOUNTER → 2025-08-19 11:04 | Outpatient (BNV) | payer OTHER, SELFPAY | PROVIDERS: Emergency Provider Emergency Medicine Emergency Medical Services; PCP Internal Medicine; Visit Provider Internal Medicine | DX: I25.2 Old myocardial infarction (principal) | CPT/HCPCS: 93010 ==

== ENCOUNTER → 2025-08-19 11:20 | Outpatient (BNV) | payer OTHER, SELFPAY | PROVIDERS: Emergency Provider Emergency Medicine Emergency Medical Services; PCP Internal Medicine; Visit Provider Radiology Diagnostic Radiology | DX: M47.812 Spondylosis without myelopathy or radiculopathy, cervical region (principal); R07.9 Chest pain, unspecified | CPT/HCPCS: 71046; 72040 ==